=== PATIENT | male | born 1960 | race Caucasian/White ===

== ENCOUNTER 2018-05-12 09:19 | Outpatient (REF) | payer MEDICAID, SELFPAY ==
[2018-05-12 13:09] LABS: Anion Gap 9.5 mmol/L (3-11); BUN 11 mg/dL (7-18); CO2 26.5 mmol/L (21.0-32.0); CREATININE 0.98 mg/dL (0.70-1.30); Calcium 8.6 mg/dL (8.5-10.1); Chloride 102 mmol/L (98-107); Ferritin 295 ng/mL (8-388); Glucose 106 mg/dL (70-100); Potassium 3.5 mmol/L (3.5-5.1); Sodium 138 mmol/L (136-145); TSH (W/Ref FT4) 1.38 uIU/mL (0.358-3.74)
[2018-05-12 15:00] LABS: Hemoglobin A1C 5.5 % (4.5-6.2)
== END 2018-05-12 09:39 ==
LOC: NCHCN 09:19
PROVIDERS: PCP Family Medicine; Visit Provider Family Medicine
DX: I10 Essential (primary) hypertension (principal); E78.5 Hyperlipidemia, unspecified; E03.9 Hypothyroidism, unspecified; R73.01 Impaired fasting glucose; G25.81 Restless legs syndrome; E66.01 Morbid (severe) obesity due to excess calories
CPT/HCPCS: 80048; 82728; 83036; 84443

== ENCOUNTER 2019-02-03 10:01 | Outpatient (CLI) | payer MEDICAID, SELFPAY ==
[2019-02-03 11:10] LABS: Hemoglobin A1C 5.7 % (4.5-6.2)
[2019-02-03 12:04] LABS: Anion Gap 11.3 mmol/L (3-11); BUN 13 mg/dL (7-18); CO2 26.7 mmol/L (21.0-32.0); CREATININE 0.94 mg/dL (0.70-1.30); Calcium 8.8 mg/dL (8.5-10.1); Calculated LDL 91; Chloride 102 mmol/L (98-107); Cholesterol 146 mg/dL (50-200); Glucose 97 mg/dL (70-100); HDL Cholesterol 42 mg/dL (40-60); Potassium 3.8 mmol/L (3.5-5.1); Sodium 140 mmol/L (136-145); TSH (W/Ref FT4) 1.33 uIU/mL (0.358-3.74); Triglyceride 67 mg/dL (30-150)
== END 2019-02-03 10:21 ==
PROVIDERS: PCP Family Medicine; Visit Provider Family Medicine
DX: I10 Essential (primary) hypertension (principal); E03.9 Hypothyroidism, unspecified; R73.01 Impaired fasting glucose; E78.5 Hyperlipidemia, unspecified
CPT/HCPCS: 36415; 80048; 80061; 83721; 83036; 84443

== ENCOUNTER 2019-06-26 15:09 | Outpatient (CLI) | payer MEDICAID, SELFPAY ==
--- NOTE | 2019-06-26 14:59 | DI.RAD_ITS ---
EXAM: XR KNEE RT 3V AP,LAT,ELVIS INDICATION: knee pain. COMPARISON: RIGHT KNEE LIMITED 1 OR 2 VIEW from 11/25/2017 TECHNIQUE: 2D digital imaging was performed. FINDINGS: There is mild narrowing of the medial femoral tibial joint space. Periarticular spurring is seen in the lateral femoral tibial joint and the posterior patella. Bones are intact and normally mineralize d. The soft tissues are unremarkable. IMPRESSION: Mild osteoarthritis of the right knee.
--- NOTE | 2019-06-26 14:59 | DI.RAD_ITS ---
EXAM: XR KNEE LT 3V AP,LAT,ELVIS INDICATION: knee pain. COMPARISON: XR KNEE RT 3V AP,LAT,ELVIS from 06/26/2019 TECHNIQUE: 2D digital imaging was performed. FINDINGS: No bone or joint abnormality is identified. The soft tissues are unremarkable. IMPRESSION: Negative examination.
== END 2019-06-26 15:29 ==
PROVIDERS: PCP Family Medicine; Visit Provider Physician Assistant
DX: M25.562 Pain in left knee (principal); M25.561 Pain in right knee; M17.11 Unilateral primary osteoarthritis, right knee
CPT/HCPCS: 73562

== ENCOUNTER 2019-07-21 08:46 | Outpatient (CLI) | payer MEDICAID, SELFPAY ==
[2019-07-21 11:04] LABS: HCT 42.5 % (40.0-50.0); HGB 13.8 g/dL (13.5-17.5); Mean Corp. HGB Concentration 32.5 g/dL (32.0-36.0); Mean Corpuscular Hemoglobin 29.1 pg (27.0-33.0); Mean Corpuscular Volume 89.5 fL (80-95); Mean Platelet Volume 10.1 fL (8.0-11.0); Platelet Count 305 x1000/uL (130-400); RBC 4.75 m/cumm (4.50-6.00); RBC Distribution Width 14.2 % (11.8-14.1); White Blood Cell Count 7.43 k/cumm (4.4-10.8)
[2019-07-21 11:54] LABS: ALT 16 U/L (16-63); AST 15 U/L (15-37); Albumin 3.2 g/dL (3.4-5.0); Alkaline Phosphatase 119 U/L (46-116); Anion Gap 8.1 mmol/L (3-11); BUN 15 mg/dL (7-18); Bilirubin, Total 0.3 mg/dL (0.2-1.0); CO2 27.9 mmol/L (21.0-32.0); CREATININE 0.92 mg/dL (0.70-1.30); Calcium 8.6 mg/dL (8.5-10.1); Chloride 105 mmol/L (98-107); Glucose 88 mg/dL (74-106); Potassium 4.3 mmol/L (3.5-5.1); Sodium 141 mmol/L (136-145); Total Protein 6.5 g/dL (6.4-8.2)
== END 2019-07-21 09:06 ==
PROVIDERS: PCP Family Medicine; Visit Provider Family Medicine
DX: I10 Essential (primary) hypertension (principal); E78.5 Hyperlipidemia, unspecified; E03.9 Hypothyroidism, unspecified; R73.03 Prediabetes
CPT/HCPCS: 36415; 80053; 85027

== ENCOUNTER 2019-09-04 00:30 | Outpatient (CLI) | payer MEDICAID, SELFPAY ==
--- NOTE | 2019-09-04 14:07 | DI.MRI_ITS ---
EXAM: MR LOWER JOINT LT WO CLINICAL HISTORY: L KNEE PAIN, M25.562. TECHNIQUE: Multiplanar multisequence MRI was performed. MR examination of the knee was performed ac cording to the usual protocol. COMPARISON: MRI R LOWER JOINT WO CONT from 03/19/2016 FINDINGS: No significant bony signal abnormality seen. Extensor mechanism appears intact except for slight car tilage signal abnormality and cartilage thinning of the patella. Articular cartilage of medial and lateral tibiofemoral joints appears thinned. There is an apparent nondisplaced tear of body and posterior horn of the medial meniscus. No lateral meniscus tear seen. No cruciate ligament tear seen. No significant collateral ligament injury or posterolateral corner injury. IMPRESSION: Nondisplaced medial meniscal tear. Articular cartilage thinning of all 3 joints of the knee consiste nt with degenerative change.
== END 2019-09-04 00:50 ==
PROVIDERS: PCP Family Medicine; Visit Provider Student in an Organized Health Care Education/Training Program
DX: M25.562 Pain in left knee (principal); S83.242A Other tear of medial meniscus, current injury, left knee, initial encounter; M17.12 Unilateral primary osteoarthritis, left knee
CPT/HCPCS: 73721

== ENCOUNTER 2019-09-20 09:54 | Outpatient (CLI) | payer MEDICAID, SELFPAY | END 2019-09-20 10:14 | PROVIDERS: PCP Family Medicine; Visit Provider Student in an Organized Health Care Education/Training Program | DX: Z01.818 Encounter for other preprocedural examination (principal) ==

== ENCOUNTER 2019-09-26 09:45 | Day surgery (SDC) | payer MEDICAID, SELFPAY ==
[2019-09-20 10:12] VITALS: BP 128/79; PULSE 79; RESP 18; TEMP 36.9
--- NOTE | 2019-09-26 07:34 | W.PM.DSUDISC ---
Documented by User: Shaniqua Schulte 09/26/19 07:37 Discharge Plan Disposition Patient Disposition: HOME Condition: Good Discharge Details Reason For Visit: left knee medial meniscus tear Attending Provider: Law Metzger Primary Care Provider: Erlinda Serrano Home Meds and New Rx's Prescriptions: New hydrocodone-acetaminophen 5-325 mg tablet 1 tab PO Q6H PRN (Reason: severe pain) Qty: 6 RF: 0 acetaminophen 500 mg tablet 500 mg PO Q6H PRN (Reason: pain) Qty: 60 RF: 2 ibuprofen 600 mg tablet 600 mg PO TID PRN (Reason: pain) Qty: 60 RF: 2 Continued ibuprofen 600 MG tablet 400 - 600 mg PO DAILY PRN PRNRF: 0 diazepam [Valium] 10 MG tablet 10 mg PO 1 hour prior to mri Qty: 1 RF: 0 tramadol 50 MG tablet 50 mg PO TID PRNQty: 20 RF: 0 bupropion HCl 150 MG tablet extended release 12 hr 150 mg PO BID RF: 0 risperidone 2 MG tablet 2 mg PO DAILY RF: 0 loratadine 10 MG tablet 10 mg PO DAILY RF: 0 ropinirole 0.5 MG tablet 0.5 mg PO HS RF: 0 lisinopril 10 MG tablet 10 mg PO DAILY RF: 0 hydrochlorothiazide 25 MG tablet 25 mg PO DAILY RF: 0 aspirin [Aspir-81] 81 MG tablet,delayed release (DR/EC) 81 mg PO DAILY RF: 0 zolpidem 10 MG tablet 10 mg PO HS PRNRF: 0 cholecalciferol (vitamin D3) [Vitamin D3] 400 UNIT tablet 400 unit PO DAILY RF: 0 famotidine 20 MG tablet 20 mg PO DAILY RF: 0 levothyroxine [Synthroid] 100 mcg Tablet 100 mcg PO DAILY RF: 0 sertraline 25 mg Tablet 25 mg PO DAILY RF: 0 No Action acetaminophen [Tylenol Extra Strength] 500 mg Tablet 1,000 mg PO Q6H PRNRF: 0 Discharge Instructions Stand Alone Forms: [facility] Arthroscopy Referrals: Law Metzger MD [ [facility] STAFF PHYSICIAN] - Equipment/Supplies: Partial Weight Bearing Crutches Activity:: Elevate Remove Dressings/Wound Care:: 72 hours Shower/Bathe:: 72 hours Diet:: As Tolerated Discharge Orders Discharge Orders: Discharge Order (Routine); Ordered 09/26/19 Ordered By: Shaniqua Schulte DS: Diagnosis Discharge Diagnosis (1) Tear of medial meniscus of left knee: Status: Acute Documented by User: Law Metzger MD 09/26/19 10:26 Discharge Plan Disposition Patient Disposition: HOME Condition: Good Discharge Details Reason For Visit: left knee medial meniscus tear Attending Provider: Law Metzger Primary Care Provider: Erlinda Serrano Home Meds and New Rx's Prescriptions: New hydrocodone-acetaminophen 5-325 mg tablet 1 tab PO Q6H PRN (Reason: severe pain) Qty: 6 RF: 0 acetaminophen 500 mg tablet 500 mg PO Q6H PRN (Reason: pain) Qty: 60 RF: 2 ibuprofen 600 mg tablet 600 mg PO TID PRN (Reason: pain) Qty: 60 RF: 2 Continued ibuprofen 600 MG tablet 400 - 600 mg PO DAILY PRN PRNRF: 0 diazepam [Valium] 10 MG tablet 10 mg PO 1 hour prior to mri Qty: 1 RF: 0 tramadol 50 MG tablet 50 mg PO TID PRNQty: 20 RF: 0 bupropion HCl 150 MG tablet extended release 12 hr 150 mg PO BID RF: 0 risperidone 2 MG tablet 2 mg PO DAILY RF: 0 loratadine 10 MG tablet 10 mg PO DAILY RF: 0 ropinirole 0.5 MG tablet 0.5 mg PO HS RF: 0 lisinopril 10 MG tablet 10 mg PO DAILY RF: 0 hydrochlorothiazide 25 MG tablet 25 mg PO DAILY RF: 0 aspirin [Aspir-81] 81 MG tablet,delayed release (DR/EC) 81 mg PO DAILY RF: 0 zolpidem 10 MG tablet 10 mg PO HS PRNRF: 0 cholecalciferol (vitamin D3) [Vitamin D3] 400 UNIT tablet 400 unit PO DAILY RF: 0 famotidine 20 MG tablet 20 mg PO DAILY RF: 0 levothyroxine [Synthroid] 100 mcg Tablet 100 mcg PO DAILY RF: 0 sertraline 25 mg Tablet 25 mg PO DAILY RF: 0 No Action acetaminophen [Tylenol Extra Strength] 500 mg Tablet 1,000 mg PO Q6H PRNRF: 0 Discharge Instructions Stand Alone Forms: [facility]th[facility] Referrals: Law Metzger MD [ [facility] STAFF PHYSICIAN] - Equipment/Supplies: Partial Weight Bearing Crutches Activity:: Elevate Remove Dressings/Wound Care:: 72 hours Shower/Bathe:: 72 hours Diet:: As Tolerated Discharge Orders Discharge Orders: Discharge Order (Routine); Ordered 09/26/19 Ordered By: Shaniqua Schulte
[2019-09-26 09:48] VITALS: BP 146/79; PULSE 82; RESP 20; TEMP 36.5; O2SAT 93
[2019-09-26] MEDS: Lactated Ringers 1,000 ML 80 ML IV (10:05)
[2019-09-26] MEDS: ceFAZolin 3,000 MG in Normal Saline 100 ML 200 MG IVPB (10:35)
[2019-09-26] MEDS: Bupivacaine 0.5% Pres-Free 30 ML VIAL (10:54)
[2019-09-26 11:31] VITALS: BP 132/74; PULSE 65; RESP 15; TEMP 36.6; O2SAT 97
[2019-09-26 11:36] VITALS: BP 137/74; PULSE 64; RESP 24; TEMP 36.6; O2SAT 97
--- NOTE | 2019-09-26 11:39 | ROE_ITS ---
Date of service: 09/26/19 Time of Service: 11:39 Operative Note Operative Note DATE OF PROCEDURE: 09/26/19 PRE-OP DIAGNOSIS: Left medial meniscal tear POST-OP DIAGNOSIS: other (Left medial meniscal tear, left medial plica) PROCEDURE: Left knee arthroscopic partial medial meniscectomy with medial plica excision SURGEON: Law Metzger ANESTHESIA: GETA ESTIMATED BLOOD LOSS: 0 PATHOLOGY: none sent COMPLICATIONS: None Patient was transported to: PACU Patient's condition: stable Indications: I have seen Milind in clinic for symptoms of a meniscus tear. This was confirmed based on MRI and exam findings. Nonoperative measures were exhausted but disability and pain persisted. I discussed knee arthroscopy with meniscal intervention with the patient. I reviewed the risks of the procedure to include, but not limited to, bleeding, infection, pain, stiffness, damage to nerves or vessels, recurrence, blood clot. Despite these risks, the patient elected to proceed. 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 The consent was reviewed with the patient and signed. The history and physical was updated. All questions were answered. Milind was taken back to the operating room. The patient was placed into the supine position on the operating room table. A nonsterile tourniquet was placed high onto the leg but not used. All bony prominences were well padded. Prophylactic antibiotics in the form of cefazolin were administered. The left leg was then prepped with Chloraprep and draped in a standard fashion with stockinette and extremity drape. A timeout to confirm correct identity, side and site, procedure, allergies, anesthesia, and medical concerns was performed. The leg was placed into a pneumatic leg hall, [id number]. A standard lateral portal was made at the lateral border of the patella tendon in line with the inferior pole of the patella, soft spot. The skin and deep tissue was incised sharply and the blunt trochar was inserted atraumatically. A diagnostic arthro scopy was performed and the findings are listed above. The suprapatellar pouch had no significant inflammatory change. The patellofemoral articulation showed some grade II chondromalacia at the inferior portion of the patella as well as good tracking. The lateral gutter had no loose bodies and the medial gutter had no loose bodies. The knee was brought into some valgus stress in extension to o pen the medial compartment. A medial portal was made, localized by a spinal needle. The portal was created with an #11 blade through skin and capsule under direct visualization avoiding any meniscal injury. A probe was then inserted into the medial compartment. The medial compartment was fully inspected. The chondral surface of the tibia showed grade I chondromalacia and the surface of the femur showed grade I chondromalacia. The medial meniscus had a complex tear involving the root with both radial and horizontal components. After evaluation, the meniscus was debrided down to a stable base using a series of biters and arthroscopic leonardo. It was probed afterwards to confirm that the tear had been removed and the meniscus was stable. The notch was then inspected which showed an intact ACL and an intact PCL. The leg was then brought into a figure of 4 position. The lateral compartment was fully inspected with the arthroscope and a probe. The chondral surface of the lateral femur showed no significant chondromalacia. The chondral surface of the lateral tibia showed no significant chondromalacia. The lateral meniscus had no meniscal tear. A medial plica was seen impinging over the medial aspect of the femur and this was resected with a shaver. The arthroscope was brought back into the suprapatellar pouch and the leg was in full extension. The knee was thoroughly irrigated with the arthroscopic fluid on high flow and pressure. Inflow was stopped and excess fluid was removed. The wounds were closed with 4-0 Nylon. They were dressed with Xeroform, 4x4 gauze, ABD pad, Kerlix and an SHAYNA wrap. A cryo-cuff was applied. The patient tolerated the procedure well and was returned to the [facility] area in a stable condition suffering no known complication.
[2019-09-26 11:41] VITALS: BP 132/74; PULSE 64; RESP 16; TEMP 36.6; O2SAT 96
[2019-09-26 11:55] VITALS: BP 147/73; PULSE 61; RESP 18; TEMP 36.6; O2SAT 98
[2019-09-26] MEDS: fentaNYL 100 MCG/2 ML VIAL IVP ×2 (11:55→12:05)
[2019-09-26 12:47] VITALS: BP 141/72; PULSE 60; RESP 16; TEMP 36.4; O2SAT 98
== END 2019-09-26 13:40 | disposition home or self-care (01) ==
PROVIDERS: PCP Family Medicine; Visit Provider Student in an Organized Health Care Education/Training Program
PROC: (CPT 29870; principal; 2019-09-26 11:00)
DX: S83.232A Complex tear of medial meniscus, current injury, left knee, initial encounter (principal); X58.XXXA Exposure to other specified factors, initial encounter; M67.52 Plica syndrome, left knee; M94.262 Chondromalacia, left knee; M22.42 Chondromalacia patellae, left knee; I10 Essential (primary) hypertension; R73.03 Prediabetes; G47.33 Obstructive sleep apnea (adult) (pediatric); K21.9 Gastro-esophageal reflux disease without esophagitis
CPT/HCPCS: 29881; E0114; J0690; J1885; J2001; J2405; J3010

== ENCOUNTER 2019-10-19 18:47 | Outpatient (REF) | payer MEDICAID, SELFPAY ==
[2019-10-19 18:48] LABS: Anion Gap 10.1 mmol/L (3-11); BUN 17 mg/dL (7-18); CO2 26.9 mmol/L (21.0-32.0); CREATININE 0.95 mg/dL (0.70-1.30); Calcium 9.1 mg/dL (8.5-10.1); Chloride 105 mmol/L (98-107); Glucose 92 mg/dL (74-106); Potassium 4.4 mmol/L (3.5-5.1); Sodium 142 mmol/L (136-145)
== END 2019-10-19 19:07 ==
LOC: NCHCN 18:47
PROVIDERS: PCP Family Medicine; Visit Provider Family Medicine
DX: I10 Essential (primary) hypertension (principal)
CPT/HCPCS: 80048

== ENCOUNTER 2019-11-07 02:01 | Outpatient (CLI) | payer MEDICAID, SELFPAY ==
--- NOTE | 2019-11-07 13:30 | DI.US_ITS ---
APPROVED REPORT EXAM: Comprehensive 2D, Doppler, and color-flow Echocardiogram Patient Location: Out-Patient Infrastructure Project Manager: Keyona Rosario RDCS (AE) Indications: Aortic Regurgitation, Edema Conclusion Left Ventricle : The left ventricle is normal size. The left ventricular systolic function is normal. The left ventricular ejection fraction is within the normal range. There is normal left ventricular wall thickness. There is normal LV segmental wall motion. Diastolic function appears normal. LVEF is 55%. Right Ventricle : The right ventricle is normal size. The right ventricular systolic function is norm al. Atria : The left atrium size is normal. The right atrium size is normal. Aortic Valve : The aortic valve is not well visualized. Mild to moderate aortic regurgitation. There is no aortic valvular stenosis. Mitral Valve : The mitral valve is normal in structure. Trace mitral regurgitation. No evidence of mi tral valve stenosis. Great Vessels : IVC is normal in size and collapses >50% with inspiration. There is none of tricuspi d regurgitation to estimate RVSP. Compared to echocardiogram dated 11/18/2017: There is no significant change. Wall motion Left Ventricle The left ventricle is normal size. The left ventricular systolic function is normal. The left ventric ular ejection fraction is within the normal range. There is normal left ventricular wall thickness. T here is normal LV segmental wall motion. Diastolic function appears normal. There is no ventricular s eptal defect visualized. LVEF is 55%. Right Ventricle The right ventricle is normal size. The right ventricular systolic function is normal. Atria The left atrium size is normal. The right atrium size is normal. The interatrial septum is intact wit h no evidence for an atrial septal defect. Aortic Valve The aortic valve is not well visualized. There is no aortic valvular stenosis. Mild to moderate aorti c regurgitation. Mitral Valve The mitral valve is normal in structure. No evidence of mitral valve stenosis. Trace mitral regurgita tion. Tricuspid Valve The tricuspid valve is normal in structure. There is no tricuspid valve stenosis. Trace tricuspid reg urgitation. Pulmonic Valve The pulmonary valve is normal in structure. There is no pulmonic valvular stenosis. There is no pulmo rory valvular regurgitation. Great Vessels The aortic root is normal in size. The ascending aorta is mildly dilated. Aortic arch is not well vis ualized. IVC is normal in size and collapses >50% with inspiration. There is none of tricuspid regurg itation to estimate RVSP. Pericardium There is no pericardial effusion. 2D Dimensions IVSD d PLAX 0.98 cm M: 0.6-1.2 LV Vol A2C d MOD 110.4 mL LVPW d PLAX 0.98 cm M: 0.6 - 1.2 LV Vol A4C d MOD 138.1 mL LVID d PLAX 5.00 cm M: 4.2 - 5.8 LA vol/ BSA A2C s A-L 24.9 mL/m2 LVDs 3.80 cm M: 2.5 - 4.0 LA vol/ BSA A4C s A-L 26.8 mL/m2 Ao Root d 3.11 cm M: 3.1 - 3.7 LA Vol/ BSA Biplane s A-L 28.0 mL/m2 RA Area A4C 13.68 cm2 LA Area A4C s MOD 22.00 cm2 RA Vol/ BSA A4C s A-L 15.1 mL/m2 LA Area A2C s MOD 19.57 cm2 Ao Asc Diam d 3.88 cm M: 2.6 - 3.4 LV EF A4C MOD 56.8 % LV EF Teichholz 46.8 % LV EF A2C MOD 55.6 % LVEF (Urena's) 55.47 % M: 52 - 72 LV EF Biplane MOD 55.5 % LV Volume 87.18 mL M: 62 - 150 LV Volume Index 35.87 mL/m2 M: 34 - 74 LV Vol Biplane MOD 123.5 mL FS 23.50 % LV Diastology E Decel Time 303.00 (160-240 msec) E/A Ratio 0.8 MV E Vmax 0.58 (0.4-1.3 m/s) MV A Vmax 0.70 (0.4-1.3 m/s) MV E/A Ratio 0.80 Aortic Valve LVOT Area 2.79 cm2 AoV Area Vmax 2.21 cm2 LVOT Vmax 1.13 m/s AoV Area/ BSA (Vmax) 0.91 cm2/m2 LVOT Mean James. 0.69 m/s CARRIE Mean James. 1.90 cm2 LVOT Peak Grad 5.1 mmHg CARRIE Mean James. Index 0.78 cm2/m2 LVOT Mean Grad 2.3 mmHg AR DT 2854 msec LVOT VTI 0.194 m AR PHT 828 msec LVOT Diam s 1.85 cm (M/F) 1.5-2.5 AoV Vmax 1.43 (0.5-1.3 m/s) Velocity Ratio 0.79 AoV Mean James. 1.01 m/s AoV Peak Grad 8.2 mmHg LVOT SV 54.06 mL AoV Mean Grad 4.6 (<5 mmHg) AoV VTI 0.264 (0.18-0.25 m) AoV Area VTI 2.05 (2.5-4.5 cm2) AoV Area/ BSA (VTI) 0.84 cm/m2 Mitral Valve MV DT 303 (160-240 msec) MV PHT 88 msec MV Area PHT 2.51 cm2 MV VTI 0.288 m MV Area VTI 1.87 (4.0-6.0 cm2) Pulmonary Valve PV Vmax 1.03 (0.5-1.5 m/s) RVOT Peak Gr. 3.14 mmHg PV Peak Grad 4.3 mmHg RVOT Mean Gr. 1.75 mmHg PV Mean Grad 2.4 mmHg RVOT VTI 0.143 m PV VTI 0.170 m RVOT Vmax 0.89 m/s
== END 2019-11-07 02:21 ==
PROVIDERS: PCP Family Medicine; Visit Provider Family Medicine
DX: R60.0 Localized edema (principal); I35.1 Nonrheumatic aortic (valve) insufficiency; I10 Essential (primary) hypertension
CPT/HCPCS: 93306

== ENCOUNTER 2019-11-13 10:30 | Outpatient (REF) | payer MEDICAID, SELFPAY ==
[2019-11-13 19:50] LABS: Anion Gap 10.1 mmol/L (3-11); BUN 18 mg/dL (7-18); CO2 26.9 mmol/L (21.0-32.0); CREATININE 1.11 mg/dL (0.70-1.30); Calcium 8.9 mg/dL (8.5-10.1); Chloride 103 mmol/L (98-107); Glucose 96 mg/dL (74-106); Potassium 4.3 mmol/L (3.5-5.1); Sodium 140 mmol/L (136-145); TSH (W/Ref FT4) 2.17 uIU/mL (0.36-3.74)
== END 2019-11-13 10:50 ==
LOC: NCHCN 10:30
PROVIDERS: PCP Family Medicine; Visit Provider Family Medicine
DX: I10 Essential (primary) hypertension (principal); E03.9 Hypothyroidism, unspecified
CPT/HCPCS: 80048; 84443

== ENCOUNTER 2019-12-25 02:10 | Outpatient (CLI) | payer MEDICAID, SELFPAY ==
[2019-12-25 15:00] LABS: Hemoglobin A1C 5.7 % (3.8-5.6)
[2019-12-25 15:58] LABS: TSH (W/Ref FT4) 1.34 uIU/mL (0.36-3.74)
== END 2019-12-25 02:30 ==
PROVIDERS: PCP Family Medicine; Visit Provider Family Medicine
DX: E03.9 Hypothyroidism, unspecified (principal); R73.03 Prediabetes; I10 Essential (primary) hypertension
CPT/HCPCS: 36415; 82306; 83036; 84443

== ENCOUNTER 2020-03-11 10:33 | Emergency (ER) | payer OTHER, MEDICAID, SELFPAY ==
--- NOTE | 2020-03-11 10:42 | NUR.NOTE ---
Nursing Note: attempted to triage pt- sitting in w/c on cell phone and asked me to wait- continued on his conversation, no obvious distress, talking in complete sentences, next pt called
[2020-03-11 10:51] VITALS: BP 158/74; PULSE 95; RESP 20; TEMP 36.8; O2SAT 95
--- NOTE | 2020-03-11 11:30 | DI.US_ITS ---
EXAM: US LOWER EXTREMITY VENOUS LT CLINICAL HISTORY: swelling and pain and redness. TECHNIQUE: Lower extremity venous ultrasound performed using grayscale, color-flow, and spectral Do ppler analysis. COMPARISON: No exams were available for comparison FINDINGS: The common femoral, femoral and popliteal veins demonstrate normal compressibility, augmentation, and color Doppler. The posterior tibial veins are patent. No saphenous vein thrombosis or other superfi cial venous thrombosis is seen. There is a Villegas's cyst measuring 5.5 cm. IMPRESSION: Villegas's cyst. No evidence of DVT. DATA REPOSITORY:
--- NOTE | 2020-03-11 11:41 | W.ED.GENAD ---
Discharge Plan Disposition Patient Disposition: HOME Condition: Good Discharge Details Chief Complaint: Cellulitis Clinical Impression: Phlebitis, Villegas cyst Primary Care Provider: Erlinda Serrano ED Provider: Janey Maher [place] Meds and New Rx's Prescriptions: Continued ibuprofen 600 MG tablet 400 - 600 mg PO DAILY PRN PRNRF: 0 diazepam [Valium] 10 MG tablet 10 mg PO 1 hour prior to mri Qty: 1 RF: 0 tramadol 50 MG tablet 50 mg PO TID PRNQty: 20 RF: 0 bupropion HCl 150 MG tablet extended release 12 hr 150 mg PO BID RF: 0 risperidone 2 MG tablet 2 mg PO DAILY RF: 0 loratadine 10 MG tablet 10 mg PO DAILY RF: 0 ropinirole 0.5 MG tablet 0.5 mg PO HS RF: 0 lisinopril 10 MG tablet 10 mg PO DAILY RF: 0 hydrochlorothiazide 25 MG tablet 25 mg PO DAILY RF: 0 aspirin [Aspir-81] 81 MG tablet,delayed release (DR/EC) 81 mg PO DAILY RF: 0 zolpidem 10 MG tablet 10 mg PO HS PRNRF: 0 cholecalciferol (vitamin D3) [Vitamin D3] 400 UNIT tablet 400 unit PO DAILY RF: 0 famotidine 20 MG tablet 20 mg PO DAILY RF: 0 levothyroxine [Synthroid] 100 mcg Tablet 100 mcg PO DAILY RF: 0 sertraline 25 mg Tablet 25 mg PO DAILY RF: 0 hydrocodone-acetaminophen 5-325 mg tablet 1 tab PO Q6H PRN (Reason: severe pain) Qty: 6 RF: 0 acetaminophen 500 mg tablet 500 mg PO Q6H PRN (Reason: pain) Qty: 60 RF: 2 ibuprofen 600 mg tablet 600 mg PO TID PRN (Reason: pain) Qty: 60 RF: 2 acetaminophen [Tylenol Extra Strength] 500 mg Tablet 1,000 mg PO Q6H PRNRF: 0 Discharge Instructions Instructions: Bakers Cyst (ED), Phlebitis (ED) Additional Instructions: Please use ibuprofen 600 mg 4 times daily with food for 5 days then as needed for pain You can use warm compresses to the affected area 3-4 times daily 20 minutes at a time Return sooner for new or worsening symptoms You will need a follow-up appointment with your primary care provider she may wish to repeat the ultrasound in 2 weeks Referrals: Erlinda Serrano MD [Primary Care Provider] - Medical Decision Making Patient presents with complaints of left lower extremity swelling and pain. His concern is of a DVT. Differentials include cellulitis DVT. There is been no trauma, he has had no fevers. There is no obvious cellulitis or abscess. An ultrasound is obtained but does show a Villegas's cyst and phlebitis. He will be discharged home on ibuprofen and recommended follow-up with primary care provider for a repeat ultrasound Medical Records Medical records reviewed: Yes I reviewed the patient's medical records. HPI General Mode of arrival: ambulatory. Date/Time Provider Initiated Documentation: 03/11/20 11:38. Limitations to Documentation: no limitations. Information obtained by: patient. HPI Narrative: This is a 59-year-old male patient with a past medical history significant for obesity hypertension and osteoarthritis who presents to the emergency department with left lower extremity pain redness. He denies any recent injury or trauma. Related Data Home Medications Medication Instructions Recorded Confirmed aspirin [Aspir-81] 81 mg PO DAILY 10/16/12 11/06/19 bupropion HCl 150 mg PO BID 10/16/12 11/06/19 hydrochlorothiazide 25 mg PO DAILY 10/16/12 11/06/19 lisinopril 10 mg PO DAILY 10/16/12 11/06/19 loratadine 10 mg PO DAILY 10/16/12 11/06/19 risperidone 2 mg PO DAILY 10/16/12 11/06/19 ropinirole 0.5 mg PO HS 10/16/12 11/06/19 zolpidem 10 mg PO HS PRN 10/16/12 11/06/19 cholecalciferol (vitamin D3) 400 unit PO DAILY 06/30/13 11/06/19 [Vitamin D3] famotidine 20 mg PO DAILY 10/10/16 11/06/19 ibuprofen 400 - 600 mg PO DAILY PRN PRN 12/03/16 11/06/19 diazepam [Valium] 10 mg PO 1 hour prior to mri #1 12/07/16 11/06/19 tramadol 50 mg PO TID PRN #20 tab-cap 03/03/17 11/06/19 levothyroxine [Synthroid] 100 mcg PO DAILY 09/20/19 11/06/19 sertraline 25 mg PO DAILY 09/20/19 11/06/19 acetaminophen 500 mg PO Q6H PRN #60 tab 09/26/19 11/06/19 acetaminophen [Tylenol Extra 1,000 mg PO Q6H PRN 09/26/19 11/06/19 Strength] hydrocodone-acetaminophen 1 tab PO Q6H PRN #6 tab 09/26/19 11/06/19 ibuprofen 600 mg PO TID PRN #60 tab 09/26/19 11/06/19 Previous Rx's Medication Instructions Recorded acetaminophen 500 mg PO Q6H PRN #60 tab 09/26/19 hydrocodone-acetaminophen 1 tab PO Q6H PRN #6 tab 09/26/19 ibuprofen 600 mg PO TID PRN #60 tab 09/26/19 Allergies Allergy/AdvReac Type Severity Reaction Status Date / Time Penicillins Allergy Severe Skin Rash, Unverified 03/11/20 10:56 TONGUE SWELLING Sulfa (Sulfonamide Allergy Intermediate Skin Rash Unverified 03/11/20 10:56 Antibiotics) General Stated Complaint: Cellulitis ZANE: 3 Review of Systems Constitutional Constitutional: Denies fever(s) Musculoskeletal Musculoskeletal: Reports arthralgias and Reports other (Swelling to left lower extremity) Integumentary/Breasts Skin/Breast: Denies rash Hematologic/Lymphatic Hematologic/Lymphatic: Denies easy bleeding and Denies easy bruising PFSH Social History Smoking/Tobacco Use Status: Former Tobacco Use Quit Date: 08/16/82 Alcohol Intake: former Drug use: Never Substance use type: does not use Current gender identity: male Do you feel safe at home: Yes Additional Social history: lives alone Exam Const Nutritional Appearance: obese Orientation: alert, awake and oriented x3 Skin Lesions: no lesions Rashes: no rashes Extrem General: edema Laterality: left (Lower) Course Vital Signs Vital signs: Vital Signs Temperature 36.8 C 03/11/20 10:51 Pulse 95 H 03/11/20 10:51 Respiratory Rate 03/11/20 10:51 Blood Pressure 158/74 H 03/11/20 10:51 Pulse Oximetry 95 03/11/20 10:51 Temperature 36.8 C 03/11/20 10:51 Temperature Source Skin 03/11/20 10:51 Pulse 95 H 03/11/20 10:51 Respiratory Rate 03/11/20 10:51 Respiratory Effort Non-Labored 03/11/20 11:14 Blood Pressure 158/74 H 03/11/20 10:51 Blood Pressure Position Sitting 03/11/20 10:51 Pulse Oximetry 95 03/11/20 10:51 Oxygen Delivery Method Room Air 03/11/20 10:51 Oxygen Flow Rate 0 03/11/20 10:51 Pain Level 5 03/11/20 10:51
== END 2020-03-11 14:29 | disposition home or self-care (01) ==
PROVIDERS: Emergency Provider Nurse Practitioner Acute Care; PCP Family Medicine
DX: I80.02 Phlebitis and thrombophlebitis of superficial vessels of left lower extremity (principal); M71.22 Synovial cyst of popliteal space [Baker], left knee; I10 Essential (primary) hypertension
CPT/HCPCS: 99284; 93971; 99283

== ENCOUNTER → 2020-04-15 10:45 | Outpatient (BNVA) | payer OTHER, MEDICAID, SELFPAY | PROVIDERS: PCP Family Medicine; Referring Provider Family Medicine; Visit Provider Student in an Organized Health Care Education/Training Program | DX: M17.12 Unilateral primary osteoarthritis, left knee (principal) | CPT/HCPCS: 20610; 99213; J7325 ==

== ENCOUNTER → 2020-06-03 10:32 | Outpatient (BNVA) | payer OTHER, MEDICAID, SELFPAY | PROVIDERS: PCP Family Medicine; Referring Provider Family Medicine; Visit Provider Student in an Organized Health Care Education/Training Program | DX: M17.12 Unilateral primary osteoarthritis, left knee (principal); Z98.890 Other specified postprocedural states | CPT/HCPCS: 99212 ==

== ENCOUNTER 2020-09-19 15:20 | Outpatient (REF) | payer OTHER, MEDICAID, SELFPAY ==
[2020-09-19 14:11] LABS: Hemoglobin A1C 5.5 % (<5.7)
[2020-09-19 14:56] LABS: ALT 27 U/L (16-63); AST 13 U/L (15-37); Albumin 3.5 g/dL (3.4-5.0); Alkaline Phosphatase 144 U/L (46-116); Anion Gap 9.5 mmol/L (3-11); BUN 17 mg/dL (7-18); Bilirubin, Total 0.3 mg/dL (0.2-1.0); CO2 28.5 mmol/L (21.0-32.0); CREATININE 0.9 mg/dL (0.70-1.30); Calcium 9.3 mg/dL (8.5-10.1); Calculated LDL 65 mg/dL (<100); Chloride 103 mmol/L (98-107); Cholesterol 128 mg/dL (<200); Glucose 89 mg/dL (74-106); HDL Cholesterol 50 mg/dL (40-60); Potassium 4.6 mmol/L (3.5-5.1); Sodium 141 mmol/L (136-145); TSH (W/Ref FT4) 1.66 uIU/mL (0.36-3.74); Triglyceride 67 mg/dL (<150)
== END 2020-09-19 15:21 | disposition home or self-care (01) ==
LOC: NCHCN 15:20
PROVIDERS: PCP Family Medicine; Visit Provider Family Medicine
DX: E03.9 Hypothyroidism, unspecified (principal); I10 Essential (primary) hypertension; R73.03 Prediabetes; E78.5 Hyperlipidemia, unspecified
CPT/HCPCS: 80053; 80061; 83036; 84443

== ENCOUNTER 2020-10-22 01:34 | Outpatient (CLI) | payer OTHER, MEDICAID, SELFPAY ==
--- NOTE | 2020-10-22 | DI.US_ITS ---
EXAM: US ABDOMEN CLINICAL HISTORY: ELEVATED ALK PHOS,R74.8,OBESITY,PROMINENT ABD VEINS,? FATTY LIVER TECHNIQUE: Ultrasound abdomen performed using standard protocol. COMPARISON: No exams were available for comparison FINDINGS: Examination limited by patient body habitus and overlying bowel gas. ABDOMINAL AORTA AND IVC: The abdominal aorta was obscured by overlying bowel. The visualized IVC is unremarkable. PANCREAS: Normal where visualized. LIVER: The liver measures 20.1 cm in length. There is mild increased echogenicity suggesting fatty i nfiltration. Hepatopedal flow in the Portal Vein. GALLBLADDER: Mobile gallstones. No evidence of wall thickening. No pericholecystic fluid identified. BILIARY SYSTEM: Common bile duct measures 8 mm. No intrahepatic biliary ductal dilation. CASTRO'S SIGN: Negative. KIDNEYS: Kidneys are symmetric in size. No evidence of renal calculi. No evidence of hydronephrosis. No renal mass or cyst identified. SPLEEN: The spleen measures 13.9 cm. ASCITES: None seen. IMPRESSION: 1. Limited examination due to patient body habitus. 2. Hepatosplenomegaly. Hepatic steatosis. 3. Cholelithiasis. Mild extrahepatic bile duct dilatation. DATA REPOSITORY:
== END 2020-10-22 01:54 ==
PROVIDERS: PCP Family Medicine; Visit Provider Family Medicine
DX: R16.2 Hepatomegaly with splenomegaly, not elsewhere classified (principal); K80.20 Calculus of gallbladder without cholecystitis without obstruction
CPT/HCPCS: 76700

== ENCOUNTER 2020-10-27 12:28 | Emergency (ER) | payer OTHER, MEDICAID, SELFPAY ==
[2020-10-27 12:38] VITALS: BP 124/70; PULSE 99; RESP 18; TEMP 36.6; O2SAT 96
--- NOTE | 2020-10-27 13:15 | W.ED.GENAD ---
Discharge Plan Disposition Patient Disposition: HOME Condition: Stable Discharge Details Clinical Impression: Anterior epistaxis Primary Care Provider: Erlinda Serrano ED Provider: Susan Marc Home Meds and New Rx's Prescriptions: Continued ibuprofen 600 MG tablet 400 - 600 mg PO DAILY PRN PRNRF: 0 tramadol 50 MG tablet 50 mg PO TID PRNQty: 20 RF: 0 bupropion HCl 150 MG tablet extended release 12 hr 150 mg PO BID RF: 0 risperidone 2 MG tablet 1 mg PO DAILY RF: 0 loratadine 10 MG tablet 10 mg PO DAILY RF: 0 ropinirole 0.5 MG tablet 0.5 mg PO HS RF: 0 lisinopril 10 MG tablet 10 mg PO DAILY RF: 0 hydrochlorothiazide 25 MG tablet 25 mg PO DAILY RF: 0 aspirin [Aspir-81] 81 MG tablet,delayed release (DR/EC) 81 mg PO DAILY RF: 0 zolpidem 10 MG tablet 10 mg PO HS PRNRF: 0 cholecalciferol (vitamin D3) [Vitamin D3] 400 UNIT tablet 400 unit PO DAILY RF: 0 famotidine 20 MG tablet 20 mg PO DAILY RF: 0 levothyroxine [Synthroid] 100 mcg Tablet 100 mcg PO DAILY RF: 0 sertraline 25 mg Tablet 25 mg PO DAILY RF: 0 ibuprofen 600 mg tablet 600 mg PO TID PRN (Reason: pain) Qty: 60 RF: 2 Discharge Instructions Instructions: Oxymetazoline (Into the nose), Nosebleed (ED) Additional Instructions: You are not currently bleeding. I would like to prevent the from recurring. Please try to not bend over. Do not strain. Try not to blow or pick your nose. If you need to sneeze do so with your mouth open. If you begin to begin bleeding, apply 2 sprays of the Afrin provided to both nostrils and apply clamp. Please clamp in place for 20 minutes. If bleeding continues despite this, please return to the emergency department. Please apply nasal saline as discussed to both nostrils [address] a humidifier next to her bed. Please follow-up with your primary care this week for reevaluation. If you develop any new or worsening symptoms please seek care urgently once again. Referrals: Erlinda Serrano MD [Primary Care Provider] - Discharge Data Discharge Date/Time-TO BE ENTERED AT DEPARTURE: 10/27/20 14:00 Medical Decision Making Patient is a pleasant 59-year-old male with past medical history significant for hypertension, obesity. He presents today with chief complaint of epistaxis. He states he began having bloody nose last night. Since then he has had intermittent bleeding, notes, and after bending forward or any type of straining. Patient is on aspirin but is not formally anticoagulated. He denies any trauma. He does state that he has been having some allergies recently and has been blowing his nose. Also reports that his house is dry and he has not been using his humidifier. On exam, patient appears nontoxic. Vital signs are stable. He appears nontoxic. No conjunctival pallor, patient has good color does not appear to be anemic. Patient not actively bleeding. Mucous membranes and nose do appear raw. He has clotted blood in the anterior aspect of the right naris. Patient I discussed treatment options. He is not actively bleeding, I do not see any need for immediate intervention. However, we did discuss prevention measures as well as treatment measures if the bleeding does begin. We will send him home with Afrin as well as nasal clamps and instructions on how to use this. Also encouraged use of nasal saline to help moisturize mucous membranes. Basic epistaxis prevention discussed.. Encouraged to follow-up with primary care. Patient does live locally and is able to return if he develop recurrence or worsening symptoms. All other questions and concerns were addressed and he is in agreement this plan. HPI General Mode of arrival: ambulatory. Date/Time Provider Initiated Documentation: 10/27/20 13:15. Limitations to Documentation: no limitations. Information obtained by: patient and RN notes reviewed. History of Present Illness 60 year old M presents to the emergency department with the chief complaint of Epistaxis, described as moderate, and is localized to the face. Patient reports no radiation. Patient started experiencing this day(s) (1) and it has been intermittent and now resolved. Immobilization improves symptom(s), Other factors that worsen symptoms (Bending forward, increased pressure) . Patient notes no other symptoms.. Patient did receive the following treatments prior to arrival, none Related Data Home Medications Medication Instructions Recorded Confirmed aspirin [Aspir-81] 81 mg PO DAILY 10/16/12 10/27/20 bupropion HCl 150 mg PO BID 10/16/12 10/27/20 hydrochlorothiazide 25 mg PO DAILY 10/16/12 10/27/20 lisinopril 10 mg PO DAILY 10/16/12 10/27/20 loratadine 10 mg PO DAILY 10/16/12 10/27/20 risperidone 1 mg PO DAILY 10/16/12 10/27/20 ropinirole 0.5 mg PO HS 10/16/12 10/27/20 zolpidem 10 mg PO HS PRN 10/16/12 10/27/20 cholecalciferol (vitamin D3) 400 unit PO DAILY 06/30/13 10/27/20 [Vitamin D3] famotidine 20 mg PO DAILY 10/10/16 10/27/20 ibuprofen 400 - 600 mg PO DAILY PRN PRN 12/03/16 06/03/20 tramadol 50 mg PO TID PRN #20 tab-cap 03/03/17 10/27/20 levothyroxine [Synthroid] 100 mcg PO DAILY 09/20/19 10/27/20 sertraline 25 mg PO DAILY 09/20/19 10/27/20 ibuprofen 600 mg PO TID PRN #60 tab 09/26/19 10/27/20 Previous Rx's Medication Instructions Recorded ibuprofen 600 mg PO TID PRN #60 tab 09/26/19 Allergies Allergy/AdvReac Type Severity Reaction Status Date / Time Penicillins Allergy Severe Skin Rash, Unverified 10/27/20 12:43 TONGUE SWELLING Sulfa (Sulfonamide Allergy Intermediate Skin Rash Unverified 10/27/20 12:43 Antibiotics) General Stated Complaint: Epistaxis ZANE: 4 Review of Systems Constitutional Constitutional: Reports as per HPI, Denies chills, Denies fatigue, Denies fever(s) and Denies headache(s) Eyes Eyes: Reports as per HPI, Denies blurry vision and Denies change in vision ENT Ears, Nose, Mouth, and Throat: Reports as per HPI, Denies bleeding gums, Denies change in voice and Denies headache(s) Cardiovascular Cardiovascular: Reports as per HPI, Denies chest pain and Denies dyspnea Respiratory Respiratory: Reports as per HPI, Denies cough, Denies hemoptysis and Denies dyspnea Gastrointestinal Gastrointestinal: Reports as per HPI, Denies melena, Denies hematochezia, Denies nausea and Denies vomiting Genitourinary Genitourinary: Reports as per HPI and Denies hematuria Integumentary/Breasts Skin/Breast: Denies unusual bruising Neurologic Neurologic: Denies headache(s) Endocrine Endocrine: Denies fatigue Hematologic/Lymphatic Hematologic/Lymphatic: Reports as per HPI, Denies easy bleeding and Denies easy bruising [facility] Medical History (Updated 10/27/20 @ 13:52 by CAIN Quinonez) Anxiety Depression GERD (gastroesophageal reflux disease) Hypothyroidism Restless leg syndrome Sleep apnea does not use device Surgical History Colonoscopy - MAC (03/13/16) History of arthroscopy of right knee Dr. Woodall Hx of oral surgery Pt states gum surgery Hx of shoulder surgery L Shoulder Social History Smoking/Tobacco Use Status: Former Tobacco Use Quit Date: 08/16/82 Smoking risk assessment performed?: Yes Alcohol Intake: former Drug use: Never Substance use type: does not use Current gender identity: male Do you feel safe at home: Yes Additional Social history: lives alone Exam Const General: cooperative, healthy appearing, comfortable, no acute distress and well developed Nutritional Appearance: well nourished and obese Orientation: alert and awake [facility] Head: normal to inspection, normocephalic and atraumatic Ears: hearing grossly normal bilaterally General nose exam: external nose normal, nares abnormal (Dried blood anterior along the septum, right side), no nasal polyps, mucous membranes and turbinates abnormal (Mucous membranes appear dry), no nasal discharge and no nasal discharge noted Face and sinus: normal facial exam, sinuses nontender and face symmetric Mouth: oral mucosae normal, lip normal, tongue normal and salivary ducts normal Throat: posterior oropharynx normal (no blood noted), tonsils normal and uvula midline Eyes General: appearance normal, both eyes and all related structures Conjunctivae: conjunctivae normal Neck Neck: normal visual inspection, full ROM, no lymphadenopathy, no meningeal signs and no lymphadenopathy noted Resp Effort & Inspection: normal respiratory effort, able to speak in complete sentences and no respiratory distress Auscultation: clear to auscultation bilaterally Cardio Rate: regular rate Rhythm: regular rhythm Heart Sounds: S1 normal and S2 normal Skin General skin exam: no rashes or lesions noted Neuro General: patient alert, patient awake and patient oriented x3 Cranial Nerves: CN's II-XI intact bilaterally Cognition: normal cognition Speech: speech normal Gait: normal gait Psych Appearance: grossly normal and well kempt Mental Status: mental status grossly normal Speech and Movement: speech and movement normal Course Vital Signs Vital signs: Vital Signs Temperature 36.6 C 10/27/20 12:38 Pulse 99 H 10/27/20 12:38 Respiratory Rate 18 10/27/20 12:38 Blood Pressure 124/70 10/27/20 12:38 Pulse Oximetry 96 10/27/20 12:38 Temperature 36.6 C 10/27/20 12:38 Temperature Source Skin 10/27/20 12:38 Pulse 99 H 10/27/20 12:38 Respiratory Rate 18 10/27/20 12:38 Respiratory Effort Non-Labored 10/27/20 12:42 Blood Pressure 124/70 10/27/20 12:38 Blood Pressure Position Sitting 10/27/20 12:38 Pulse Oximetry 96 10/27/20 12:38 Oxygen Delivery Method Room Air 10/27/20 12:38 Oxygen Flow Rate 0 10/27/20 12:38 Pain Level 0 10/27/20 12:38
[2020-10-27] MEDS: Oxymetazolone 0.05% SPRAY 15 ML BTL NS (13:56)
== END 2020-10-27 14:00 | disposition home or self-care (01) ==
PROVIDERS: Emergency Provider Physician Assistant; PCP Family Medicine
DX: R04.0 Epistaxis (principal)
CPT/HCPCS: 99282; 99283

== ENCOUNTER 2021-10-20 11:14 | Emergency (ER) | payer OTHER, MEDICAID, SELFPAY ==
[2021-10-20 11:18] VITALS: BP 155/84; PULSE 90; RESP 22; TEMP 36.8; O2SAT 96
--- NOTE | 2021-10-20 12:00 | DI.CT_ITS ---
Exam(s) CT LUMBAR SPINE SI JOINTS WO EXAM: CT LUMBAR SPINE SI JOINTS WO CLINICAL HISTORY: fall worsening back pain. TECHNIQUE: Imaging Protocol: Axial computed tomography images with coronal and sagittal reformatted images were created and reviewed CONTRAST MATERIAL: Noncontrast COMPARISON: No exams were available for comparison FINDINGS: Increased image noise due to patient body habitus. Bones: The last intervertebral disc space is designated the L5/S1 level for the numbering purpose of this examination. The vertebral body heights are well maintained. Alignment is satisfactory. No frac ture is seen. There are small endplate osteophytes at multiple levels. T12-L1: No disc herniations or bulges are present. L1-2: No disc herniations or bulges are present. L2-3: No disc herniations or bulges are present. L3-4: No disc herniations or bulges are present. L4-5: No disc herniations or bulges are present. L5-S1: No disc herniations or bulges are present. Soft Tissues: The visualized SI joints and sacrum are will maintained. The paraspinal soft tissues a re unremarkable. IMPRESSION: Mild degenerative disc changes. No evidence of fracture or paraspinal hematoma. RADIATION DOSE DELIVERED: 1,614.05mGy.cm Total DLP DATA REPOSITORY: All CT scans at this facility are submitted to the National Radiology Data Registry (NRDR) Dose Index Registry (DIR) with the [employer] (ACR). RADIATION OPTIMIZATION: All CT scans at this facility use at least one of these dose optimization te chniques: automated exposure control; mA and/or kV adjustment per patient size (includes targeted exa ms where dose is matched to clinical indication); or iterative reconstruction.
[2021-10-20] MEDS: HYDROmorphone 2 MG/ML VIAL 1 MG IVP (12:34)
[2021-10-20] MEDS: Ondansetron 4 MG/2 ML VIAL IVP (12:35)
--- NOTE | 2021-10-20 13:07 | ED.GENADUL_ITS ---
Discharge Plan Disposition Patient Disposition: HOME Condition: Stable Discharge Details Clinical Impression: Acute low back pain due to trauma Primary Care Provider: Erlinda Serrano ED Provider: Dennys Peter Home Meds and New Rx's Prescriptions: New prednisone 50 mg tablet 50 mg PO DAILY Qty: 4 0RF cyclobenzaprine 5 mg tablet 10 mg PO TID PRN (Reason: muscle spasm) Qty: 14 0RF hydrocodone-acetaminophen 5-325 mg tablet 1 tab PO Q6H PRN (Reason: pain) Qty: 6 0RF Continued bupropion HCl 150 MG tablet extended release 12 hr 150 mg PO BID 0RF risperidone 2 MG tablet 1 mg PO DAILY 0RF loratadine 10 MG tablet 10 mg PO DAILY 0RF ropinirole 0.5 MG tablet 0.5 mg PO HS 0RF lisinopril 10 MG tablet 10 mg PO DAILY 0RF hydrochlorothiazide 25 MG tablet 25 mg PO DAILY 0RF aspirin [Aspir-81] 81 MG tablet,delayed release (DR/EC) 81 mg PO DAILY 0RF zolpidem 10 MG tablet 10 mg PO HS PRN0RF cholecalciferol (vitamin D3) [Vitamin D3] 400 UNIT tablet 400 unit PO DAILY 0RF famotidine 20 MG tablet 20 mg PO DAILY 0RF levothyroxine [Synthroid] 100 mcg Tablet 100 mcg PO DAILY 0RF sertraline 25 mg Tablet 25 mg PO DAILY 0RF ibuprofen 600 mg tablet 600 mg PO TID PRN (Reason: pain) Qty: 60 2RF Discontinued tramadol 50 MG tablet 50 mg PO TID PRNQty: 20 0RF Discharge Instructions Instructions: Low Back Strain (ED) Additional Instructions: Please take medication as prescribed and follow-up with your primary care provider for reassessment if not improving in the next week. Please return immediately to the emergency department if you develop any further severe back pain, severe weakness to your lower extremities, fever chills, bowel or bladder incontinence, or further concerns. You may continue to take Aleve daily along with breakthrough narcotic. Referrals: Erlinda Serrano MD [Primary Care Provider] - (If not improving for the next week please follow-up with primary care provider) Discharge Data Discharge Date/Time-TO BE ENTERED AT DEPARTURE: 10/20/21 14:30 Medical Decision Making Patient here for back pain. Patient reports back pain started after fall that occurred 5 weeks ago. he states that pain was mild but has been actually increasing as time goes on instead of improving. He has been using [id number] Aleve which initially helped but no longer is helping. Physical exam shows obese male that has significant and severe pain with any movement or twisting to the lumbar spine. Physical exam shows spinal tenderness to palpation but difficult to determine how much of this is soft tissue versus spinal given body habitus. Given mechanism of injury to include fall we will plan on performing CT imaging for evaluation of fracture. Will give pain medication pending result. At this time I doubt cauda equina or other life- threatening back pain as he has no radiating leg pain, no fever chills, and mechanism of injury is consistent with mechanical source of pain. Radiological imaging shows IMPRESSION: Mild degenerative disc changes. No evidence of fracture or paraspinal hematoma. Patient reassessed and states significant improvement of pain and discomfort. With further discussion he does state some occasional spasms that occur as well. Plan to send patient home with limited narcotic otherwise he may continue daily Aleve, will give patient steroids to see if this helps, along with muscle relaxant. Did discuss with patient risk versus benefit of narcotic pain medication which she signed appropriate paperwork understanding risk versus benefit and precautions. Discussed the diagnosis and risks, and we agree with discharging home to follow- up with their primary doctor. We also discussed returning to the Emergency Department immediately if new or worsening symptoms occur. We have discussed the symptoms which are most concerning (e.g., saddle anesthesia, urinary or bowel incontinence or retention, changing or worsening pain) that necessitate immediate return. HPI General Mode of arrival: EMS . Date/Time Provider Initiated Documentation: 10/20/21 11:27 . Limitations to Documentation: no limitations . Information obtained by: patient . History of Present Illness 60 year old M presents to the emergency department with the chief complaint of back pain after fall, described as severe, with intensity rated at 10. Quality is described as aching and sharp, and is localized to the back. Patient reports no radiation. Patient started experiencing this week(s) (5) and it has been constant. improves with No relieving factors improve symptom(s), Movement worsens symptoms . Patient notes no other symptoms.. Patient did receive the following treatments prior to arrival, NSAID Related Data Home Medications Medication Instructions Recorded Confirmed aspirin 81 mg tablet,delayed 81 mg PO DAILY 10/16/12 10/20/21 release (Aspir-) bupropion HCl 150 mg tablet,12 hr 150 mg PO BID 10/16/12 10/20/21 sustained-release hydrochlorothiazide 25 mg tablet 25 mg PO DAILY 10/16/12 10/20/21 lisinopril 10 mg tablet 10 mg PO DAILY 10/16/12 10/20/21 loratadine 10 mg tablet 10 mg PO DAILY 10/16/12 10/20/21 risperidone 2 mg tablet 1 mg PO DAILY 10/16/12 10/20/21 ropinirole 0.5 mg tablet 0.5 mg PO HS 10/16/12 10/20/21 zolpidem 10 mg tablet 10 mg PO HS PRN 10/16/12 10/20/21 cholecalciferol (vitamin D3) 10 400 unit PO DAILY 06/30/13 10/20/21 mcg (400 unit) tablet (Vitamin D3) famotidine 20 mg tablet 20 mg PO DAILY 10/10/16 10/20/21 levothyroxine 100 mcg tablet 100 mcg PO DAILY 09/20/19 10/20/21 (Synthroid) sertraline 25 mg tablet 25 mg PO DAILY 09/20/19 10/20/21 ibuprofen 600 mg tablet 600 mg PO TID PRN #60 tab 09/26/19 10/20/21 cyclobenzaprine 5 mg tablet 10 mg PO TID PRN #14 tab 10/20/21 hydrocodone 5 mg-acetaminophen 325 1 tab PO Q6H PRN #6 tab 10/20/21 mg tablet prednisone 50 mg tablet 50 mg PO DAILY #4 tab 10/20/21 Previous Rx's Medication Instructions Recorded ibuprofen 600 mg tablet 600 mg PO TID PRN #60 tab 09/26/19 cyclobenzaprine 5 mg tablet 10 mg PO TID PRN #14 tab 10/20/21 hydrocodone 5 mg-acetaminophen 325 1 tab PO Q6H PRN #6 tab 10/20/21 mg tablet prednisone 50 mg tablet 50 mg PO DAILY #4 tab 10/20/21 Allergies Allergy/AdvReac Type Severity Reaction Status Date / Time Penicillins Allergy Severe Skin Rash, Unverified 10/20/21 11:29 TONGUE SWELLING Sulfa (Sulfonamide Allergy Intermediate Skin Rash Unverified 10/20/21 11:29 Antibiotics) General Stated Complaint: Nk/Back Pain ZANE: 4 Review of Systems Constitutional Constitutional: Denies chills and Denies fever(s) Cardiovascular Cardiovascular: Denies chest pain and Denies dyspnea on exertion Respiratory Respiratory: Denies cough and Denies dyspnea on exertion Gastrointestinal Gastrointestinal: Denies abdominal pain, Denies change in bowel habits, Denies diarrhea, Denies nausea and Denies vomiting Genitourinary Genitourinary: Denies difficulty urinating and Denies urinary incontinence Musculoskeletal Musculoskeletal: Reports as per HPI and Reports back pain Neurologic Neurologic: Denies sensory deficit PFSH All Active Problems (Updated 10/20/21 @ 14:13 by Dennys Peter NP) Anterior epistaxis (Acute) Acute low back pain due to trauma (Acute) Screening for colorectal cancer (Acute) Primary osteoarthritis of right knee (Acute) Injected: 06/26/2019 Primary osteoarthritis of left knee (Acute) Injected: 06/26/2019 Hypertension (Chronic) Insomnia (Acute) Obesity (Chronic) Tear of medial meniscus of left knee (Acute 09/26/19) Status post knee arthroscopy -partial medial meniscectomy and plica excision Medical History (Updated 10/20/21 @ 14:13 by Dennys Peter NP) Anxiety Depression GERD (gastroesophageal reflux disease) Hypothyroidism Restless leg syndrome Sleep apnea does not use device Surgical History Colonoscopy - MAC (03/13/16) History of arthroscopy of right knee Dr. Woodall Hx of oral surgery Pt states gum surgery Hx of shoulder surgery L Shoulder Social History Smoking/Tobacco Use Status: Former Tobacco Use Quit Date: 08/16/82 Smoking risk assessment performed?: Yes Alcohol Intake: former Drug use: Never Substance use type: does not use Current gender identity: male Do you feel safe at home: Yes Do you feel safe in your relationship?: Yes Additional Social history: lives alone Exam Const General: cooperative and no acute distress Orientation: alert, awake and oriented x3 Neck Neck: normal visual inspection, full ROM and no meningeal signs Resp Effort & Inspection: normal respiratory effort Auscultation: clear to auscultation bilaterally Cardio Rate: regular rate Rhythm: regular rhythm Heart Sounds: S1 normal and S2 normal GI Inspection: obesity (Exam limited by significant obesity) Palpation: soft and nontender Auscultation: normal bowel sounds Back/Spine/Pelvis Back: no CVA tenderness Thoracic/Lumbar Spine: pain with thoraco-lumbar ROM and thoraco-lumbar ROM limited Pelvis: no pain with anterior-posterior compression, buttock tenderness on the left and sciatic notch tenderness on the left Sacrum: no ecchymosis Neuro General: patient alert, patient awake and patient oriented x3 DTR's: Rt Patellar: 2+ and Lt Patellar: 2+ Course Vital Signs Vital signs: Vital Signs Temperature 36.8 C 10/20/21 11:18 Pulse 90 10/20/21 11:18 Respiratory Rate 22 10/20/21 11:18 Blood Pressure 155/84 H 10/20/21 11:18 Pulse Oximetry 96 10/20/21 11:18 Temperature 36.8 C 10/20/21 11:18 Temperature Source Temporal Artery Scan 10/20/21 11:18 Pulse 90 10/20/21 11:18 Respiratory Rate 22 10/20/21 11:18 Respiratory Effort Non-Labored 10/20/21 11:25 Blood Pressure 155/84 H 10/20/21 11:18 Blood Pressure Position Sitting 10/20/21 11:18 Pulse Oximetry 96 10/20/21 11:18 Oxygen Delivery Method Room Air 10/20/21 11:18 Oxygen Flow Rate 0 10/20/21 11:18 Pain Level 10 10/20/21 11:27
[2021-10-20 13:54] VITALS: BP 133/73; PULSE 78; RESP 18; TEMP 36.2; O2SAT 93
== END 2021-10-20 14:30 | disposition home or self-care (01) ==
PROVIDERS: Emergency Provider Nurse Practitioner Family; PCP Family Medicine
DX: M54.50 Low back pain, unspecified (principal); W18.39XA Other fall on same level, initial encounter
CPT/HCPCS: 36415; 96374; 96375; 99284; 72131; 99283; J2405

== ENCOUNTER 2021-10-23 20:24 | Outpatient (REF) | payer OTHER, MEDICAID, SELFPAY ==
[2021-10-23 14:48] LABS: ALT 29 U/L (16-63); AST 14 U/L (15-37); Albumin 3.4 g/dL (3.4-5.0); Alkaline Phosphatase 134 U/L (46-116); Anion Gap 12.7 mmol/L (3-11); BUN 23 mg/dL (7-18); Bilirubin, Total 0.4 mg/dL (0.2-1.0); CO2 24.3 mmol/L (21.0-32.0); Calcium 8.5 mg/dL (8.5-10.1); Chloride 104 mmol/L (98-107); Glucose 103 mg/dL (74-106); Potassium 4.2 mmol/L (3.5-5.1); Sodium 141 mmol/L (136-145); TSH (W/Ref FT4) 0.83 uIU/mL (0.36-3.74); Total Protein 6.9 g/dL (6.4-8.2)
[2021-10-24 10:32] LABS: HIV-1/2 Ag & Ab Screen Negative (Negative)
== END 2021-10-23 20:25 | disposition home or self-care (01) ==
LOC: NCHCN 20:24
PROVIDERS: PCP Family Medicine; Visit Provider Family Medicine
DX: I10 Essential (primary) hypertension (principal); E03.9 Hypothyroidism, unspecified; R60.0 Localized edema; Z11.4 Encounter for screening for human immunodeficiency virus [HIV]
CPT/HCPCS: 80053; 87389; 83036; 84443

== ENCOUNTER 2022-02-25 11:15 | Emergency (ER) | payer OTHER, MEDICAID, SELFPAY ==
[2022-02-25 11:18] VITALS: BP 140/58; PULSE 98; RESP 16; TEMP 36.9; O2SAT 95
--- NOTE | 2022-02-25 11:30 | DI.RAD_ITS ---
Exam(s) XR ANKLE RT COMPLETE EXAM: XR ANKLE RT COMPLETE CLINICAL HISTORY: fall, right ankle pain. TECHNIQUE: 2D digital imaging was performed. COMPARISON: CR LEFT ANKLE COMPLETE from 04/03/2010 FINDINGS: 3 views There is abundant soft tissue swelling laterally. However, there is no evidence of acute fracture or widening of the ankle mortise. Talar dome appears unremarkable. Lesser amount of swelling is noted medially. No obvious degenerative changes in the ankle and tibiotalar joints. Prominent inferior calcaneal spur noted. IMPRESSION: Soft tissue swelling but no fractures evident. No widening of the ankle mortise. DATA REPOSITORY: RADIATION DOSE DELIVERED:
--- NOTE | 2022-02-25 11:30 | DI.US_ITS ---
Exam(s) US LOWER EXTREMITY VENOUS RT EXAM: US LOWER EXTREMITY VENOUS RT CLINICAL HISTORY: swelling, eval for clot TECHNIQUE: Grayscale, color, and doppler imaging of the deep venous system of the right lower extrem ity was performed. COMPARISON: US US ABDOMEN from 10/22/2020 FINDINGS: There is no evidence of intraluminal thrombus and there is normal compression and augmentation demons trated within the common femoral vein, femoral vein, and popliteal vein. In the ipsilateral calf the interrogated veins also exhibit normal compression/ augmentation properti es. The ipsilateral saphenofemoral junction is patent. IMPRESSION: 1. No evidence of DVT in the right lower extremity. DATA REPOSITORY:
--- NOTE | 2022-02-25 11:31 | W.ED.GENAD ---
Discharge Plan Disposition Patient Disposition: HOME Condition: Good Discharge Details Clinical Impression: Contusion of leg, right, Right leg swelling Primary Care Provider: Erlinda Serrano ED Provider: Charlie Pacheco Home Meds and New Rx's Prescriptions: New clindamycin HCl 150 mg capsule 450 mg PO Q6H 7 Days Qty: 84 0RF Continued bupropion HCl 150 MG tablet extended release 12 hr 150 mg PO BID risperidone 2 MG tablet 1 mg PO DAILY loratadine 10 MG tablet 10 mg PO DAILY ropinirole 0.5 MG tablet 0.5 mg PO HS lisinopril 10 MG tablet 10 mg PO DAILY hydrochlorothiazide 25 MG tablet 25 mg PO DAILY aspirin [Aspir-81] 81 MG tablet,delayed release (DR/EC) 81 mg PO DAILY zolpidem 10 MG tablet 10 mg PO HS PRN cholecalciferol (vitamin D3) [Vitamin D3] 400 UNIT tablet 400 unit PO DAILY famotidine 20 MG tablet 20 mg PO DAILY levothyroxine [Synthroid] 100 mcg Tablet 100 mcg PO DAILY sertraline 25 mg Tablet 25 mg PO DAILY ibuprofen 600 mg tablet 600 mg PO TID PRN (Reason: pain) Qty: 60 2RF prednisone 50 mg tablet 50 mg PO DAILY Qty: 4 0RF cyclobenzaprine 5 mg tablet 10 mg PO TID PRN (Reason: muscle spasm) Qty: 14 0RF hydrocodone-acetaminophen 5-325 mg tablet 1 tab PO Q6H PRN (Reason: pain) Qty: 6 0RF Discharge Instructions Instructions: Cellulitis (ED), R.I.C.E. Treatment (ED) Additional Instructions: At this time your exam does not show any evidence of a blood clot or fracture of the bones. Currently there does not appear to be any evidence of infection, however this may develop with time. If you notice any spreading of the redness, fevers, or chills please take the antibiotic as directed. Otherwise I would recommend holding off on taking the antibiotic unless you notice any of these symptoms. You have been given a prescription which you can fill if you do know any of these concerning symptoms. Please continue to use ice, elevation, and wrapping with compression stockings on your leg to help with the swelling. If you notice any worsening of your symptoms, or any new symptoms such as vomiting, diarrhea, fever, chills, shortness of breath, chest pain, numbness, weakness, or fainting , please return immediately to the emergency department for reevaluation. Please follow up with your primary care provider as soon as possible for reassessment and reevaluation. As always, it was a pleasure participating in your medical care today. Referrals: Erlinda Serrano MD [Primary Care Provider] - Medical Decision Making This is a pleasant 61-year-old male who presents today for evaluation of swelling in his right lower extremity. Patient states that about a week and a half ago he was standing on a chair when it slipped and his leg got caught in the chair. Since then he has had pain in his ankle, and swelling in the right lower extremity. He denies any chest pain or shortness of breath. He denies any new numbness or tingling. No history of blood clots before. He does have a history of cellulitis, but denies any fever or chills. No other complaints at this time. Pain is made worse with palpation and ambulation. Improved with icing. No other modifying factors. Exam demonstrates swelling in the right lower extremity around the calf and right ankle. There is also some bruising. No redness or warmth to suggest cellulitis, but there is some violaceous coloring secondary to bruising and trauma. Differential includes ankle sprain versus fracture which is less likely. Differential also includes DVT potentially. We will get an x-ray and ultrasound, monitor closely and reassess. 12:20 PM X-ray result and ultrasound are negative for acute process, fracture, or DVT. Symptoms inconsistent with cellulitis. Suspect continued contusion and swelling secondary to this. Recommend compression stocking, ice, and continued elevation. Patient is concerned for cellulitis, and although none is present now, we did have a long discussion of symptoms that would represent infection for which to take an antibiotic. He will be sent home with a prescription, but I have recommended that he did not fill it unless he does develop redness and fever. I did discuss the risk of antibiotics if they are improperly used. Patient will be discharged home. Discussed red flags for which to return. I have extensively reviewed the treatment plan and discharge instructions with the patient. I have addressed all patient concerns at this time. The patient was made aware of what symptoms to monitor for that would warrant a return to the emergency department. Discussed the plan with the patient, they demonstrate verbal understanding and agreement with our assessment and plan at this time. The documentation in this chart was dictated using [employer] dictation software. Please excuse any dictation errors. FINDINGS: 3 views There is abundant soft tissue swelling laterally. However, there is no evidence of acute fracture or widening of the ankle mortise. Talar dome appears unremarkable. Lesser amount of swelling is noted medially. No obvious degenerative changes in the ankle and tibiotalar joints. Prominent inferior calcaneal spur noted. IMPRESSION: Soft tissue swelling but no fractures evident. No widening of the ankle mortise. FINDINGS: There is no evidence of intraluminal thrombus and there is normal compression and augmentation demonstrated within the common femoral vein, femoral vein, and popliteal vein. In the ipsilateral calf the interrogated veins also exhibit normal compression/ augmentation properties. The ipsilateral saphenofemoral junction is patent. IMPRESSION: 1. No evidence of DVT in the right lower extremity. HPI General Date/Time Provider Initiated Documentation: 02/25/22 11:19. HPI Narrative: This is a pleasant 61-year-old male who presents today for evaluation of swelling in his right lower extremity. Patient states that about a week and a half ago he was standing on a chair when it slipped and his leg got caught in the chair. Since then he has had pain in his ankle, and swelling in the right lower extremity. He denies any chest pain or shortness of breath. He denies any new numbness or tingling. No history of blood clots before. He does have a history of cellulitis, but denies any fever or chills. No other complaints at this time. Pain is made worse with palpation and ambulation. Improved with icing. No other modifying factors. Related Data Home Medications Medication Instructions Recorded Confirmed aspirin 81 mg tablet,delayed 81 mg PO DAILY 10/16/12 02/25/22 release (Aspir-) bupropion HCl 150 mg tablet,12 hr 150 mg PO BID 10/16/12 02/25/22 sustained-release hydrochlorothiazide 25 mg tablet 25 mg PO DAILY 10/16/12 02/25/22 lisinopril 10 mg tablet 10 mg PO DAILY 10/16/12 02/25/22 loratadine 10 mg tablet 10 mg PO DAILY 10/16/12 02/25/22 risperidone 2 mg tablet 1 mg PO DAILY 10/16/12 02/25/22 ropinirole 0.5 mg tablet 0.5 mg PO HS 10/16/12 02/25/22 zolpidem 10 mg tablet 10 mg PO HS PRN 10/16/12 02/25/22 cholecalciferol (vitamin D3) 10 400 unit PO DAILY 06/30/13 02/25/22 mcg (400 unit) tablet (Vitamin D3) famotidine 20 mg tablet 20 mg PO DAILY 10/10/16 02/25/22 levothyroxine 100 mcg tablet 100 mcg PO DAILY 09/20/19 02/25/22 (Synthroid) sertraline 25 mg tablet 25 mg PO DAILY 09/20/19 02/25/22 ibuprofen 600 mg tablet 600 mg PO TID PRN pain #60 tabs 09/26/19 02/25/22 cyclobenzaprine 5 mg tablet 10 mg PO TID PRN muscle spasm #14 10/20/21 02/25/22 tabs hydrocodone 5 mg-acetaminophen 325 1 tab PO Q6H PRN pain #6 tabs 10/20/21 02/25/22 mg tablet prednisone 50 mg tablet 50 mg PO DAILY #4 tabs 10/20/21 02/25/22 clindamycin HCl 150 mg capsule 450 mg PO Q6H 7 days #84 caps 02/25/22 Previous Rx's Medication Instructions Recorded ibuprofen 600 mg tablet 600 mg PO TID PRN pain #60 tabs 09/26/19 cyclobenzaprine 5 mg tablet 10 mg PO TID PRN muscle spasm #14 10/20/21 tabs hydrocodone 5 mg-acetaminophen 325 1 tab PO Q6H PRN pain #6 tabs 10/20/21 mg tablet prednisone 50 mg tablet 50 mg PO DAILY #4 tabs 10/20/21 clindamycin HCl 150 mg capsule 450 mg PO Q6H 7 days #84 caps 02/25/22 Allergies Allergy/AdvReac Type Severity Reaction Status Date / Time Penicillins Allergy Severe Skin Rash, Unverified 02/25/22 11:22 TONGUE SWELLING Sulfa (Sulfonamide Allergy Intermediate Skin Rash Unverified 02/25/22 11:22 Antibiotics) General Stated Complaint: Vascular ZANE: 4 Review of Systems All systems reviewed & are unremarkable except as noted in HPI and below PFSH All Active Problems (Updated 02/25/22 @ 12:04 by Charlie Pachceo DO) Anterior epistaxis (Acute) Contusion of leg, right (Acute) Right leg swelling (Acute) Screening for colorectal cancer (Acute) Primary osteoarthritis of right knee (Acute) Injected: 06/26/2019 Primary osteoarthritis of left knee (Acute) Injected: 06/26/2019 Hypertension (Chronic) Insomnia (Acute) Obesity (Chronic) Tear of medial meniscus of left knee (Acute 09/26/19) Status post knee arthroscopy -partial medial meniscectomy and plica excision Medical History (Updated 02/25/22 @ 12:04 by Charlie Pacheco DO) Anxiety Depression GERD (gastroesophageal reflux disease) Hypothyroidism Restless leg syndrome Sleep apnea does not use device Surgical History Colonoscopy - MAC (03/13/16) History of arthroscopy of right knee Dr. Woodall Hx of oral surgery Pt states gum surgery Hx of shoulder surgery L Shoulder Social History Smoking/Tobacco Use Status: Former Tobacco Use Quit Date: 08/16/82 Smoking risk assessment performed?: Yes Alcohol Intake: former Drug use: Never Substance use type: does not use Current gender identity: male Do you feel safe at home: Yes Do you feel safe in your relationship?: Yes Additional Social history: lives alone Exam Narrative Exam Narrative: 1.Const: Well-nourished, Well-developed, appearing stated age 2.Eyes: PERRL, no conjunctival injection, and symmetrical lids. 3.ENT: Atraumatic external nose and ears. Moist MM. Neck: Symmetric, trachea midline, No thyromegaly. 4.CVS: +S1/S2, No murmurs or gallops. Peripheral pulses 2+ and equal in all extremities. Brisk capillary refill in all extremities. 5.RESP: Unlabored respiratory effort. Clear to auscultation bilaterally. No wheezes rales or rhonchi 6.GI: Soft, Nontender/Nondistended, No hepatosplenomegaly. No guarding or rebound. 7.MSK: Mild swelling of the right lower extremity, swelling around the calf and tenderness there as well. Bruising around the right lateral posterior calf, as well as the anterior ivey. Mild tenderness and swelling over the lateral ankle as well. Pain with movement of the ankle but no significant joint laxity. Capillary refill is brisk in all toes, sensation is intact. Dorsalis pedis pulse +2 bilaterally. No significant atypical warmth. No redness that would suggest cellulitis. 8.Skin: Warm, Dry. 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 Sensation grossly intact, no focal neurologic deficits. 10.Psych: (AAO) x3. Appropriate mood and affect Course Vital Signs Vital signs: Vital Signs Temperature 36.9 C 02/25/22 11:18 Pulse 98 H 02/25/22 11:18 Respiratory Rate 16 02/25/22 11:18 Blood Pressure 140/58 L 02/25/22 11:18 Pulse Oximetry 95 02/25/22 11:18 Temperature 36.9 C 02/25/22 11:18 Temperature Source Temporal Artery Scan 02/25/22 11:18 Pulse 98 H 02/25/22 11:18 Respiratory Rate 16 02/25/22 11:18 Respiratory Effort 02/25/22 11:23 Blood Pressure 140/58 L 02/25/22 11:18 Blood Pressure Position Sitting 02/25/22 11:18 Pulse Oximetry 95 02/25/22 11:18 Oxygen Delivery Method Room Air 02/25/22 11:18 Oxygen Flow Rate 0 02/25/22 11:18 Pain Level 8 02/25/22 11:18
[2022-02-25 11:34] VITALS: RESP 18
== END 2022-02-25 12:13 | disposition home or self-care (01) ==
PROVIDERS: Emergency Provider Student in an Organized Health Care Education/Training Program; PCP Family Medicine
DX: S80.11XA Contusion of right lower leg, initial encounter (principal); W23.1XXA Caught, crushed, jammed, or pinched between stationary objects, initial encounter; Z87.891 Personal history of nicotine dependence
CPT/HCPCS: 99284; 73610; 93971

== ENCOUNTER 2022-10-16 17:38 | Outpatient (REF) | payer OTHER, MEDICAID, SELFPAY ==
[2022-10-16 18:38] LABS: Anion Gap 6.4 mmol/L (3-11); BUN 11 mg/dL (7-18); CO2 29.6 mmol/L (21.0-32.0); CREATININE 0.9 mg/dL (0.70-1.30); Calcium 10.1 mg/dL (8.5-10.1); Chloride 100 mmol/L (98-107); Estimated GFR 97.17 (mL/min/1.73m2); Glucose 113 mg/dL (74-106); Potassium 4.9 mmol/L (3.5-5.1); Sodium 136 mmol/L (136-145); TSH (W/Ref FT4) 1.52 uIU/mL (0.36-3.74)
== END 2022-10-16 17:39 | disposition home or self-care (01) ==
LOC: NCHCN 17:38
PROVIDERS: PCP Family Medicine; Visit Provider Family Medicine
DX: I10 Essential (primary) hypertension (principal); E03.9 Hypothyroidism, unspecified
CPT/HCPCS: 80048; 84443

== ENCOUNTER 2022-10-20 01:37 | Outpatient (CLI) | payer OTHER, MEDICAID, SELFPAY ==
--- NOTE | 2022-10-20 | DI.RAD_ITS ---
Exam(s) XR KNEE RT 3V AP,LAT,ELVIS EXAM: XR KNEE RT 3V AP,LAT,ELVIS CLINICAL HISTORY: KNEE JOINT PAIN > 3 MONTHS, RT, M25.561. TECHNIQUE: 2D digital imaging was performed. COMPARISON: CR XR KNEE LT 3V AP,LAT,ELVIS from 06/26/2019 FINDINGS: 3 views No evidence fracture. Small joint effusion. Advanced narrowing of the medial compartment almost bon e-on-bone. Lesser degenerative changes lateral compartment. No osseous lesions. IMPRESSION: Significant degenerative changes in the medial compartment. Small joint effusion DATA REPOSITORY: RADIATION DOSE DELIVERED:
== END 2022-10-20 01:57 ==
PROVIDERS: PCP Family Medicine; Visit Provider Family Medicine
DX: M25.561 Pain in right knee (principal); M25.461 Effusion, right knee; M17.11 Unilateral primary osteoarthritis, right knee
CPT/HCPCS: 73562

== ENCOUNTER 2023-04-04 10:02 | Emergency (ER) | payer OTHER, MEDICAID, SELFPAY ==
[2023-04-04 10:21] VITALS: BP 139/81; PULSE 101; RESP 18; TEMP 36.4; O2SAT 97
--- NOTE | 2023-04-04 10:31 | ED.GENADUL_ITS ---
Discharge Plan Disposition Patient Disposition: Home Condition: Stable Discharge Details Clinical Impression: Back strain Primary Care Provider: Erlinda Serrano ED Provider: Chinedu Valiente Home Meds and New Rx's Prescriptions: New cyclobenzaprine 5 mg tablet 5 mg PO QHS PRN (Reason: muscle spasm) Qty: 10 0RF lidocaine [Lidoderm] 5 % adhesive patch,medicated 1 patch topical DAILY PRNQty: 15 0RF Rx Instructions: leave on most painful area for up to 12 hrs No Action bupropion HCl 150 MG tablet extended release 12 hr 150 mg PO BID risperidone 2 MG tablet 1 mg PO DAILY loratadine 10 MG tablet 10 mg PO DAILY ropinirole 0.5 MG tablet 0.5 mg PO HS lisinopril 10 MG tablet 10 mg PO DAILY hydrochlorothiazide 25 MG tablet 25 mg PO DAILY aspirin [Aspir-81] 81 MG tablet,delayed release (DR/EC) 81 mg PO DAILY zolpidem 10 MG tablet 10 mg PO HS PRN cholecalciferol (vitamin D3) [Vitamin D3] 400 UNIT tablet 400 unit PO DAILY famotidine 20 MG tablet 20 mg PO DAILY levothyroxine [Synthroid] 100 mcg Tablet 100 mcg PO DAILY sertraline 25 mg Tablet 25 mg PO DAILY ibuprofen 600 mg tablet 600 mg PO TID PRN (Reason: pain) Qty: 60 2RF prednisone 50 mg tablet 50 mg PO DAILY Qty: 4 0RF cyclobenzaprine 5 mg tablet 10 mg PO TID PRN (Reason: muscle spasm) Qty: 14 0RF hydrocodone-acetaminophen 5-325 mg tablet 1 tab PO Q6H PRN (Reason: pain) Qty: 6 0RF Discharge Instructions Instructions: Thoracic Back Strain (ED) Medical Decision Making 62-year-old male presents after sustaining upper back strain while attempting to catch something that was falling off the roof of his car yesterday. Latissimus tenderness on examination, no midline spinal tenderness. Neurologically intact. Low suspicion for spinal cord injury or central neurologic process. Trial of anti-inflammatory analgesia. Home care instructions and return precautions give HPI General Date/Time Provider Initiated Documentation: 04/04/23 10:24 . HPI Narrative: 62-year-old presents 1 day after back injury strain to catch something up sliding off of his car felt discomfort in the muscles of his upper left back. No chest pain or shortness of breath no other injuries. Able to walk without issues. No weakness numbness or other neurologic symptomatology Related Data Home Medications Medication Instructions Recorded Confirmed aspirin 81 mg tablet,delayed 81 mg PO DAILY 10/16/12 04/04/23 release (Aspir-) bupropion HCl 150 mg tablet,12 hr 150 mg PO BID 10/16/12 04/04/23 sustained-release hydrochlorothiazide 25 mg tablet 25 mg PO DAILY 10/16/12 04/04/23 lisinopril 10 mg tablet 10 mg PO DAILY 10/16/12 04/04/23 loratadine 10 mg tablet 10 mg PO DAILY 10/16/12 04/04/23 risperidone 2 mg tablet 1 mg PO DAILY 10/16/12 04/04/23 ropinirole 0.5 mg tablet 0.5 mg PO HS 10/16/12 04/04/23 zolpidem 10 mg tablet 10 mg PO HS PRN 10/16/12 04/04/23 cholecalciferol (vitamin D3) 10 400 unit PO DAILY 06/30/13 04/04/23 mcg (400 unit) tablet (Vitamin D3) famotidine 20 mg tablet 20 mg PO DAILY 10/10/16 04/04/23 levothyroxine 100 mcg tablet 100 mcg PO DAILY 09/20/19 04/04/23 (Synthroid) sertraline 25 mg tablet 25 mg PO DAILY 09/20/19 04/04/23 ibuprofen 600 mg tablet 600 mg PO TID PRN pain #60 tabs 09/26/19 04/04/23 cyclobenzaprine 5 mg tablet 10 mg PO TID PRN muscle spasm #14 10/20/21 02/25/22 tabs hydrocodone 5 mg-acetaminophen 325 1 tab PO Q6H PRN pain #6 tabs 10/20/21 04/04/23 mg tablet prednisone 50 mg tablet 50 mg PO DAILY #4 tabs 10/20/21 04/04/23 cyclobenzaprine 5 mg tablet 5 mg PO QHS PRN muscle spasm #10 04/04/23 tabs lidocaine 5 % topical patch 1 patch topical DAILY PRN #15 ea 04/04/23 (Lidoderm) Previous Rx's Medication Instructions Recorded ibuprofen 600 mg tablet 600 mg PO TID PRN pain #60 tabs 09/26/19 cyclobenzaprine 5 mg tablet 10 mg PO TID PRN muscle spasm #14 10/20/21 tabs hydrocodone 5 mg-acetaminophen 325 1 tab PO Q6H PRN pain #6 tabs 10/20/21 mg tablet prednisone 50 mg tablet 50 mg PO DAILY #4 tabs 10/20/21 cyclobenzaprine 5 mg tablet 5 mg PO QHS PRN muscle spasm #10 04/04/23 tabs lidocaine 5 % topical patch 1 patch topical DAILY PRN #15 ea 04/04/23 (Lidoderm) Allergies Allergy/AdvReac Type Severity Reaction Status Date / Time Penicillins Allergy Severe Skin Rash, Unverified 04/04/23 10:24 TONGUE SWELLING Sulfa (Sulfonamide Allergy Intermediate Skin Rash Unverified 04/04/23 10:24 Antibiotics) General Stated Complaint: Nk/Back Pain ZANE: 4 Review of Systems Narrative: Review of Systems Constitutional: negative Eyes: negative ENT: negative Cardiovascular: negative Respiratory: negative Gastrointestinal: negative : negative Musculoskeletal: Back pain Skin: negative Neurologic: negative Psych: negative PFSH All Active Problems (Updated 04/04/23 @ 10:34 by Chinedu Valiente MD) Anterior epistaxis (Acute) Back strain (Acute) Screening for colorectal cancer (Acute) Primary osteoarthritis of right knee (Acute) Injected: 06/26/2019 Primary osteoarthritis of left knee (Acute) Injected: 06/26/2019 Hypertension (Chronic) Insomnia (Acute) Obesity (Chronic) Tear of medial meniscus of left knee (Acute 09/26/19) Status post knee arthroscopy -partial medial meniscectomy and plica excision Medical History (Updated 04/04/23 @ 10:34 by Chinedu Valiente MD) Anxiety Depression GERD (gastroesophageal reflux disease) Hypothyroidism Restless leg syndrome Sleep apnea does not use device Surgical History Colonoscopy - MAC (03/13/16) History of arthroscopy of right knee Dr. Woodall Hx of oral surgery Pt states gum surgery Hx of shoulder surgery L Shoulder Social History Smoking/Tobacco Use Status: Former Tobacco Use Quit Date: 08/16/82 Smoking risk assessment performed?: Yes Alcohol Intake: former Drug use: Never Substance use type: does not use Current gender identity: male Do you feel safe at home: Yes Do you feel safe in your relationship?: Yes Additional Social history: lives alone Exam Narrative Exam Narrative: Physical Examination General: alert, awake, cooperative, resting comfortably, no acute distress HEENT: normocephalic, atraumatic; PERRL, EOM intact, conjunctiva normal; no nasal discharge; moist mucous membranes, oral and pharyngeal mucosa normal, tolerating secretions Neck: supple, trachea midline; full ROM Chest: normal to inspection Respiratory: normal respiratory effort, speaking in full sentences Back: No midline spinal tenderness, patient does not some muscle tension within left Skin: no lesions, rashes or trauma appreciated Neuro: AAOx3, normal speech, moving all extremities; ambulatory without assistance Extremities: Moving all extremities no trauma Psych: Appropriate mood and affect Course Vital Signs Vital signs: Vital Signs Temperature 36.4 C L 04/04/23 10:21 Pulse 101 H 04/04/23 10:21 Respiratory Rate 18 04/04/23 10:21 Blood Pressure 139/81 04/04/23 10:21 Pulse Oximetry 97 04/04/23 10:21 Temperature 36.4 C L 04/04/23 10:21 Temperature Source Skin 04/04/23 10:21 Pulse 101 H 04/04/23 10:21 Respiratory Rate 18 04/04/23 10:21 Blood Pressure 139/81 04/04/23 10:21 Blood Pressure Position Sitting 04/04/23 10:21 Pulse Oximetry 97 04/04/23 10:21 Oxygen Delivery Method Room Air 04/04/23 10:21 Oxygen Flow Rate 0 04/04/23 10:21 Pain Level 10 04/04/23 10:21
[2023-04-04] MEDS: Ketorolac 15 MG/ML VIAL IM (10:36)
[2023-04-04] MEDS: Lidocaine 5% Patch 1 PATCH TP (10:37)
== END 2023-04-04 11:02 | disposition home or self-care (01) ==
LOC: ER 10:34
PROVIDERS: Emergency Provider Emergency Medicine; PCP Family Medicine
DX: S39.012A Strain of muscle, fascia and tendon of lower back, initial encounter (principal); X50.0XXA Overexertion from strenuous movement or load, initial encounter; Y93.89 Activity, other specified; Y92.512 Supermarket, store or market as the place of occurrence of the external cause; Y99.9 Unspecified external cause status; Z87.891 Personal history of nicotine dependence
CPT/HCPCS: 96372; 99283; 99282; J1885

== ENCOUNTER → 2023-09-08 00:59 | Outpatient (CLI) | payer OTHER, MEDICAID, SELFPAY ==
--- NOTE | 2023-09-08 08:00 | DI.US_ITS ---
APPROVED REPORT EXAM: Comprehensive 2D, Doppler, and color-flow Echocardiogram Patient Location: Out-Patient Talent Acquisition Lead: Jeremy Bai RDCS (AE) Indications: aortic regurgitation, dyspnea on exertion Other Information Technically limited study due to body habitus. Conclusion Technically limited study 1. Normal chamber sizes. 2. Normal LV function, EF 65%. Normal RV function. 3. Anatomically normal valves. Trace AI,TR. 4. No pericardial effusion. Wall motion Left Ventricle The left ventricle is normal size. The left ventricular systolic function is normal. The left ventric ular ejection fraction is within the normal range. There is normal left ventricular wall thickness. T here is normal LV segmental wall motion. There is no ventricular septal defect visualized. LVEF is 57 %. Right Ventricle The right ventricle is normal size. The right ventricular systolic function is normal. Atria The left atrium size is normal. The right atrium size is normal. The interatrial septum is intact wit h no evidence for an atrial septal defect. Aortic Valve The aortic valve is normal in structure. Number of aortic valve leaflets could not be assessed. There is no aortic valvular stenosis. Trace aortic regurgitation. Mitral Valve The mitral valve is normal in structure. No evidence of mitral valve stenosis. No Mitral Regurgitatio n. Tricuspid Valve The tricuspid valve is normal in structure. There is no tricuspid valve stenosis. Trace tricuspid reg urgitation. Unable to assess PA pressure. Pulmonic Valve The pulmonary valve is normal in structure. There is no pulmonic valvular stenosis. There is no pulmo rory valvular regurgitation. Great Vessels The aortic root is normal in size. The ascending aorta is moderately dilated. IVC is normal in size a nd collapses >50% with inspiration. Pericardium There is no pericardial effusion. 2D Dimensions IVSD d PLAX 0.86 cm M: 0.6-1.2 Ao Root d 3.11 cm M: 3.1 - 3.7 LVPW d PLAX 0.79 cm M: 0.6 - 1.2 Ao Asc Diam d 4.17 cm M: 2.6 - 3.4 LVID d PLAX 4.15 cm M: 4.2 - 5.8 LVDs 2.95 cm M: 2.5 - 4.0 LV EF Teichholz 55.8 % FS 28.77 % LV EDV (Teich) 76.2 mL LV ESV (Teich) 33.7 mL Stroke Vol Index (Teich) 16.82 M-Mode TAPSE 2.35 cm (M/F) >1.7 Auto EF LV EDV A4C 123.4 mL LV EDV A2C 91.4 mL LV EDV BP 106.5 mL LV ESV A4C 52.6 mL LV ESV A2C 39.6 mL LV ESV BP 45.5 mL LVEF(%) A4C 57.4 % LVEF(%) A2C 56.6 % LVEF(%) BP 57.3 % LV SV A4C 70.8 ml LV SV A2C 51.8 ml LV SV BP 61.0 ml LV CO A4C 6.7 L/min LV CO A2C 4.7 L/min LV CO BP 5.7 L/min HR A4C 94.73 BPM HR A2C 90.46 BPM LV EDV Index (BP) LA Volume LA Length A4C 6.6 cm LA Length A2C 5.6 cm LA Area A4C s 13.31 cm2 LA Area A2C s 11.76 cm2 LA Vol A4C A-L 22.81 mL LA Vol A2C A-L 21.09 mL LA Vol Biplane A-L 23.9 mL LA Vol/BSA A4C A-L LA Vol/BSA A2C A-L LA Vol/BSA BP A-L 9.4 mL/m2 LA Vol A4C MOD 22.6 mL LA Vol A2C MOD 20.4 mL LA Vol BP MOD 23.0 mL RA Volume RA Area A4C 9.3 cm2 RA ESV A4C (A-L) 16.5mL RA Vol/BSA A4C A-L RA Length A4C 4.4 cm RA ESV A4C (MOD) 16.7mL LV Diastology MV E' medial 0.082 (>0.07 m/s) MV E Vmax 0.63 (0.4-1.3 m/s) MV E/E' MED 7.69 (<14) MV A Vmax 0.75 (0.4-1.3 m/s) MV E' lateral 0.088 (>0.1 m/s) E/A Ratio 0.8 MV E/E' LAT 7.15 (<14) MV E' Average 0.085 m/s MV E/E'(average) 7.41 Aortic Valve AoV Vmax 1.25 m/s LVOT Vmax 1.10 m/s AoV Peak Grad 29.9 mmHg LVOT Peak Grad 4.8 mmHg AoV Area (Vmax) 2.82 cm2 LVOT VTI 0.217 m AoV VTI 0.211 m LVOT Mean Grad 2.4 mmHg AoV Mean James. 0.90 m/s LVOT SV 69.59 mL AoV Mean Grad 3.5 mmHg LVOT Diam s 2.00 cm AoV Area (VTI) 3.29 cm2 AV Regurg Peak Gr. 53.50 mmHg Velocity Ratio 0.88 AR Decel Monona 2.6m/sec2 AR DT 1420 msec AR PHT 412 msec AR Vmax 3.66 m/s Mitral Valve MV DT 117 (160-240 msec) Pulmonary Valve PV Vmax 0.84 (0.5-1.5 m/s) RVOT Vmax 0.80 m/s PV Peak Grad 2.8 mmHg RVOT Peak Gr. 2.6 mmHg PV Mean James 0.62 m/s RVOT VTI 0.148 m PV Mean Grad 1.7 mmHg RVOT Mean Gr. 1.5 mmHg
== END ==
PROVIDERS: PCP Nurse Practitioner; Visit Provider Nurse Practitioner
DX: I35.1 Nonrheumatic aortic (valve) insufficiency (principal); R06.09 Other forms of dyspnea
CPT/HCPCS: 93306

== ENCOUNTER 2023-09-11 12:07 | Emergency (ER) | payer OTHER, MEDICAID, SELFPAY ==
[2023-09-11 12:16] VITALS: BP 166/90; PULSE 98; RESP 18; TEMP 36.6; O2SAT 98
[2023-09-11 13:30] VITALS: BP 140/87; PULSE 95; RESP 14; O2SAT 94
--- NOTE | 2023-09-12 08:10 | ED.GENADUL_ITS ---
HPI General Date/Time Provider Initiated Documentation: 09/11/23 12:23 . HPI Narrative: 62-year-old male presents with report of rash which started on his arms and has moved to his thorax over the course of the past several 2 weeks. He describes rashes papular and itchy. He denies any difficulty swallowing or shortness of breath. He denies any new detergents, soaps, or obvious new exposures. He denies history of similar symptoms in the past. He did try applying some triamcinolone to his right arm and it did improve his symptoms, he has since run out of medication and not been able to replace it. He states last night his rash on his thorax was so itchy that he was unable to sleep secondary to pruritus. Related Data Home Medications Medication Instructions Recorded Confirmed lisinopril 10 mg tablet 10 mg PO DAILY 10/16/12 09/11/23 loratadine 10 mg tablet 10 mg PO DAILY 10/16/12 09/11/23 levothyroxine 100 mcg tablet 100 mcg PO DAILY 09/20/19 09/11/23 (Synthroid) sertraline 25 mg tablet 25 mg PO DAILY 09/20/19 09/11/23 lidocaine 5 % topical patch 1 patch topical DAILY PRN #15 ea 04/04/23 09/11/23 (Lidoderm) atorvastatin 20 mg tablet 20 mg PO QHS 06/30/23 09/11/23 diclofenac sodium 1 % topical gel 2 g topical BID 06/30/23 09/11/23 (Voltaren Arthritis Pain) furosemide 20 mg tablet 20 mg PO DAILY 06/30/23 09/11/23 metformin 500 mg tablet,extended 1,000 mg PO DAILY 06/30/23 09/11/23 release 24 hr naltrexone 50 mg tablet 25 mg PO BID 06/30/23 09/11/23 omeprazole 20 mg capsule,delayed 20 mg PO DAILY 06/30/23 09/11/23 release risperidone 0.25 mg tablet 0.25 mg PO DAILY 06/30/23 09/11/23 ropinirole 1 mg tablet 1 mg PO QHS 06/30/23 09/11/23 spironolactone 25 mg tablet 25 mg PO DAILY 06/30/23 09/11/23 triamcinolone acetonide 0.1 % 1 applic topical BID 06/30/23 09/11/23 topical cream aspirin 81 mg tablet,delayed 81 mg PO DAILY #90 tabs 07/20/23 09/11/23 release cyclobenzaprine 10 mg tablet 10 mg PO TID PRN muscle spasm #60 07/20/23 09/11/23 tabs bupropion HCl 150 mg tablet,12 hr See Rx Instructions PO .COMPLEX 08/12/23 09/11/23 sustained-release #270 tabs clotrimazole 1 % lotion 1 applic topical TID #30 mL 09/11/23 miconazole nitrate 2 % topical 1 spray topical BID #150 grams 09/11/23 spray (Lotrimin AF) prednisone 20 mg tablet 40 mg (2 x 20 mg) PO ONCE #10 tabs 09/11/23 Previous Rx's Medication Instructions Recorded lidocaine 5 % topical patch 1 patch topical DAILY PRN #15 ea 04/04/23 (Lidoderm) aspirin 81 mg tablet,delayed 81 mg PO DAILY #90 tabs 07/20/23 release cyclobenzaprine 10 mg tablet 10 mg PO TID PRN muscle spasm #60 07/20/23 tabs bupropion HCl 150 mg tablet,12 hr See Rx Instructions PO .COMPLEX 08/12/23 sustained-release #270 tabs clotrimazole 1 % lotion 1 applic topical TID #30 mL 09/11/23 miconazole nitrate 2 % topical 1 spray topical BID #150 grams 09/11/23 spray (Lotrimin AF) prednisone 20 mg tablet 40 mg (2 x 20 mg) PO ONCE #10 tabs 09/11/23 Allergies Allergy/AdvReac Type Severity Reaction Status Date / Time Penicillins Allergy Severe Skin Rash, Verified 09/11/23 12:14 TONGUE SWELLING Sulfa (Sulfonamide Allergy Intermediate Skin Rash Verified 09/11/23 12:14 Antibiotics) clindamycin Allergy Mild Verified 09/11/23 12:14 oxacillin Allergy Mild Verified 09/11/23 12:14 General Stated Complaint: RashLesion ZANE: 4 Course Vital Signs Vital signs: Vital Signs Temperature 36.6 C 09/11/23 12:16 Pulse 98 H 09/11/23 12:16 Respiratory Rate 18 09/11/23 12:16 Blood Pressure 166/90 H 09/11/23 12:16 Pulse Oximetry 98 09/11/23 12:16 Temperature 36.6 C 09/11/23 12:16 Temperature Source Oral 09/11/23 12:16 Pulse 95 H 09/11/23 13:30 Respiratory Rate 14 09/11/23 13:30 Respiratory Effort Normal, Non-Labored 09/11/23 12:20 Blood Pressure 140/87 09/11/23 13:30 Pulse Oximetry 94 09/11/23 13:30 Pain Level 0 09/11/23 12:16 Medical Decision Making This 62-year-old male is presenting with rash to thorax Papular rash, some mild excoriations likely from itching out evidence of secondary infection localized to the left side of chest and thorax and right scapular region Secondary to severity of symptoms I did order prednisone for several days, patient will purchase [id number] triamcinolone to apply topically and as he has evidence of tinea corporis underneath bilateral upper pectoral regions, he will purchase some Lotrimin to apply to these areas Patient uvula midline, no evidence of intraoral involvement, lungs clear to auscultation, cardiac rate rhythm regular, otherwise in no acute distress, discharged home encouraged to follow-up in the outpatient setting and to return earlier should he have new or worsening complaints Recommended to use dye and fragrance free soaps and detergents Quality:SDOH Health Related Social Needs: No Data to Display PFSH All Active Problems (Updated 09/11/23 @ 13:23 by CAIN Robertson) Contact dermatitis (Acute) Tinea corporis (Acute) Prediabetes (Acute 01/2019) Hyperlipidemia (Acute) Aortic regurgitation (Acute) Left ventricular hypertrophy (Acute) Fatty infiltration of liver (Acute) Cholelithiasis (Acute) Anterior epistaxis (Acute) Screening for colorectal cancer (Acute) Primary osteoarthritis of right knee (Acute) Injected: 06/26/2019 Primary osteoarthritis of left knee (Acute) Injected: 06/26/2019 Hypertension (Chronic) Insomnia (Acute) Obesity (Chronic) Tear of medial meniscus of left knee (Acute 09/26/19) Status post knee arthroscopy -partial medial meniscectomy and plica excision Medical History (Updated 09/11/23 @ 13:23 by CAIN Robertson) Superficial thrombosis of leg (04/05/20) Hypothyroidism Anxiety Depression GERD (gastroesophageal reflux disease) Restless leg syndrome Sleep apnea does not use device Surgical History Hx of oral surgery Pt states gum surgery Hx of shoulder surgery L Shoulder History of arthroscopy of right knee Dr. Talisha AREVALO (03/13/16) Social History (Updated 07/13/23 @ 13:50 by Gina Henriquez LPN) Smoking/Tobacco Use Status: Former Tobacco Use Quit Date: 08/16/82 Smoking risk assessment performed?: Yes Alcohol Intake: former Drug use: Never Substance use type: does not use Adopted: Yes Caregiver/Support person: Yes Foster care: Yes Housing: apartment Number of Children: 3 number of grandchildren: 8 Communication Needs: None Education Level: high school Do you need help understanding health information?: Never current occupation: unemployed Pets and animals: Yes Pets and animals: dog(s) Sexually active: No Do you think of yourself as: straight/heterosexual Current gender identity: male What is your relationship status?: How often do you talk on the phone with friends or family?: three or more times per week How often do you get together with friends or relatives?: twice per week Do you belong to any clubs or organized social groups?: no Panel score (0-1 are the most socially isolated patients): 1 What type of physical activity do you participate in: walking Duration: 15-30 minutes/day Frequency: daily Seatbelt use: never Helmet use: No Drive intox or ride w/intox 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 truck driver: No Working smoke detector in home: Yes Carbon monox detector in home: Yes Do you feel safe at home: Yes Do you feel safe in your relationship?: Yes Victim of physical abuse: No Victim of emotional abuse: No Additional Social history: lives alone Discharge Plan Disposition Patient Disposition: Home Discharge Details Clinical Impression: Tinea corporis, Contact dermatitis Primary Care Provider: Leena Berry ED Provider: Becca Matt Home Meds and New Rx's Prescriptions: New prednisone 20 mg tablet 40 mg PO ONCE Qty: 10 0RF Lotrimin AF 2 % aerosol,spray 1 spray topical BID Qty: 150 0RF clotrimazole 1 % lotion 1 applic topical TID Qty: 30 0RF Continued triamcinolone acetonide 0.1 % cream 1 applic topical BID diclofenac sodium [Voltaren Arthritis Pain] 1 % gel 2 g topical BID ropinirole 1 mg tablet 1 mg PO QHS Rx Instructions: administer 1-3 hours before bedtime atorvastatin 20 mg tablet 20 mg PO QHS omeprazole 20 mg capsule,delayed release(DR/EC) 20 mg PO DAILY risperidone 0.25 mg tablet 0.25 mg PO DAILY spironolactone 25 mg tablet 25 mg PO DAILY furosemide 20 mg tablet 20 mg PO DAILY naltrexone 50 mg tablet 25 mg PO BID metformin 500 mg tablet extended release 24 hr 1,000 mg PO DAILY aspirin 81 mg tablet,delayed release (DR/EC) 81 mg PO DAILY Qty: 90 3RF cyclobenzaprine 10 mg tablet 10 mg PO TID PRN (Reason: muscle spasm) Qty: 60 0RF bupropion HCl 150 mg tablet sustained-release 12 hr See Rx Instructions PO .COMPLEX Qty: 270 0RF Rx Instructions: 2 tabs in the AM and one in the PM orally; loratadine 10 MG tablet 10 mg PO DAILY lisinopril 10 MG tablet 10 mg PO DAILY lidocaine [Lidoderm] 5 % adhesive patch,medicated 1 patch topical DAILY PRNQty: 15 0RF Rx Instructions: leave on most painful area for up to 12 hrs levothyroxine [Synthroid] 100 mcg Tablet 100 mcg PO DAILY sertraline 25 mg Tablet 25 mg PO DAILY Discharge Instructions Instructions: Skin Yeast Infection (ED), Dermatitis (ED) Additional Instructions: Take the prednisone as prescribed Apply the Lotrimin underneath the pectoral muscle where you have rashes, this is a yeast infection Should you have worsening symptoms, spreading redness, fever, worsening pain, please be reassessed Follow-up with your doctor at your scheduled appointment and return earlier should you have new or worsening complaints Referrals: Leena Berry NP [Primary Care Provider] - Discharge Data Discharge Date/Time-TO BE ENTERED AT DEPARTURE: 09/11/23 13:32
== END 2023-09-11 13:32 | disposition home or self-care (01) ==
PROVIDERS: Emergency Provider Physician Assistant; PCP Nurse Practitioner
DX: B35.4 Tinea corporis (principal); L25.9 Unspecified contact dermatitis, unspecified cause; Z79.82 Long term (current) use of aspirin; Z79.899 Other long term (current) drug therapy; Z88.0 Allergy status to penicillin; Z88.2 Allergy status to sulfonamides; Z88.1 Allergy status to other antibiotic agents
CPT/HCPCS: 82962; 99283

== ENCOUNTER 2023-09-22 10:57 | Outpatient (CLI) | payer OTHER, MEDICAID, SELFPAY ==
[2023-09-22 11:20] LABS: Abs Immature Grans 0.08 10^3/uL (0.0-0.06); Absolute Basophil Count 0.08 10^3/uL (0.0-0.2); Absolute Eosinophil Count 0.74 10^3/uL (0.0-0.7); Absolute Lymphocyte Count 3.34 10^3/uL (1.2-3.4); Absolute Monocyte Count 0.78 10^3/uL (0.1-0.8); Basophils % 0.7; Eosinophils % 6.2; HCT 45.4 % (40.0-50.0); HGB 14.6 g/dL (13.5-17.5); Immature Grans % 0.7; Lymphocytes % 28.2; MCH 28.5 pg (27.0-33.0); MCHC 32.2 % (32.0-36.0); MCV 89 fL (80-95); MPV 9.7 fL (8.0-11.0); Monocytes % 6.6; Neutrophils % 57.6; Platelet Count 389 10^3/uL (130-400); RBC 5.12 10^6/uL (4.36-5.78); RDW 13.9 % (11.8-14.1); RDW-SD 44.8 fL; WBC 11.86 10^3/uL (4.4-10.8)
[2023-09-22 11:21] LABS: Absolute Neutrophil Count 6.83 10^3/uL (1.2-6.7)
[2023-09-22 11:45] LABS: ALT 31 U/L (16-63); AST 15 U/L (15-37); Albumin 3.5 g/dL (3.4-5.0); Alkaline Phosphatase 106 U/L (46-116); Anion Gap 10.3 mmol/L (3-11); BUN 16 mg/dL (7-18); Bilirubin, Total 0.6 mg/dL (0.2-1.0); CO2 28.7 mmol/L (21.0-32.0); CREATININE 1.1 mg/dL (0.70-1.30); Calcium 9.2 mg/dL (8.5-10.1); Chloride 101 mmol/L (98-107); Glucose 101 mg/dL (74-106); Potassium 3.8 mmol/L (3.5-5.1); Sodium 140 mmol/L (136-145); TSH (W/Ref FT4) 2.96 uIU/mL (0.36-3.74); Total Protein 7.4 g/dL (6.4-8.2)
[2023-09-22 12:00] LABS: Hemoglobin A1C 5.7 % (<5.7)
[2023-09-22 13:55] LABS: Calculated LDL 48 mg/dL (<100); Cholesterol 129 mg/dL (<200); HDL Cholesterol 57 mg/dL (40-60); Triglyceride 122 mg/dL (<150)
== END 2023-09-22 10:58 | disposition home or self-care (01) ==
LOC: LBO 10:57
PROVIDERS: PCP Nurse Practitioner; Visit Provider Nurse Practitioner
DX: E78.5 Hyperlipidemia, unspecified (principal); I10 Essential (primary) hypertension; R73.03 Prediabetes; E03.9 Hypothyroidism, unspecified
CPT/HCPCS: 36415; 80053; 80061; 83036; 84443; 85025

== ENCOUNTER 2023-09-28 16:25 | Emergency (ER) | payer OTHER, MEDICAID, SELFPAY ==
[2023-09-28] VITALS (19 sets, daily range): BP systolic 117–134; BP diastolic 61–91; PULSE 98–118; RESP 20–30; TEMP 36.7; O2SAT 90–95
--- NOTE | 2023-09-28 17:15 | DI.RAD_ITS ---
Exam(s) XR CHEST 1V IN DI DEPT EXAM: XR CHEST 1V IN DI DEPT CLINICAL HISTORY: fall TECHNIQUE: 2D digital imaging was performed. COMPARISON: CR CHEST 2 VIEWS PA,LAT from 08/17/2017 FINDINGS: Exam limited by patient body habitus. LUNGS: Grossly clear. No pleural abnormality seen. HEART: Enlarged. AORTA: Normal diameter. BONES: Unremarkable for age. Soft tissues: Unremarkable. IMPRESSION: Limited exam. No acute findings. DATA REPOSITORY: RADIATION DOSE DELIVERED:
--- NOTE | 2023-09-28 17:15 | RT.EKG_ITS ---
APPROVED REPORT Exam: Resting ECG Reason for Exam: sob Patient Location: E HR:104 bpm ECG Measurements Heart Rate 104 AXIS PA 164 P 58 QRSd 76 QRS 12 QT 316 T 62 QTc 416 Conclusion Sinus tachycardia...rate> [address] segment or T wave abnormlaiteis to suggest occlusive SC.
--- NOTE | 2023-09-28 17:15 | DI.CT_ITS ---
Exam(s) CT PELVIC WO EXAM: CT PELVIC WO CLINICAL HISTORY: inability to ambulate. TECHNIQUE: Imaging Protocol: Axial computed tomography images with coronal and sagittal reformatted images were created and reviewed. CONTRAST MATERIAL: Oral: No COMPARISON: No exams were available for comparison FINDINGS: Bladder: Symmetric distention, no gross wall thickening. Bowel: No obstruction or bowel wall thickening. Peritoneal cavity: No ascites, collection or mesenteric inflammatory response. Reproductive: Unremarkable. Bones: No fracture. L3-4 through L5-S1 disc spaces are maintained. Hip joint spaces are maintained . SI joints and pubic symphysis are not widened. Soft tissues: Unremarkable. No hematoma. IMPRESSION: Normal CT scan of the pelvis. No evidence of fracture. RADIATION DOSE DELIVERED: 799.96mGy.cmTotal DLP DATA REPOSITORY: All CT scans at this facility are submitted to the National Radiology Data Registry (NRDR) Dose Index Registry (DIR) with the [employer] ([employer]). RADIATION OPTIMIZATION: All CT scans at this facility use at least one of these dose optimization te chniques: automated exposure control; mA and/or kV adjustment per patient size (includes targeted exa ms where dose is matched to clinical indication); or iterative reconstruction.
--- NOTE | 2023-09-28 17:18 | W.ED.GENAD ---
HPI General Mode of arrival: EMS. Date/Time Provider Initiated Documentation: 09/28/23 16:30. Limitations to Documentation: no limitations. Information obtained by: patient and EMS. HPI Narrative: 62yo M with hypothyroid, depression, GERD, HTN, obesity, presenting for generalized weakness with three falls from standing today. Has felt generally weak and unwell for about a week, also has had some shortness of breath with exertion and a mild cough for the same period of time. Today his whole body felt weak and he was unable to keep his feet, fell to the ground. No head strike or loss of consciousness. Nothing hurts currently. Has a diffuse pruritic rash for about a month, PCP thinks possible bedbugs. He is otherwise in his usual state of health with no fevers, chills, rash, nausea, vomiting, abdominal pain, chest pain, focal weakness, numbness, headache, vertigo, vsion changes, or other concerns. Related Data Home Medications Medication Instructions Recorded Confirmed lisinopril 10 mg tablet 10 mg PO DAILY 10/16/12 09/28/23 loratadine 10 mg tablet 10 mg PO DAILY 10/16/12 09/28/23 levothyroxine 100 mcg tablet 100 mcg PO DAILY 09/20/19 09/28/23 (Synthroid) sertraline 25 mg tablet 25 mg PO DAILY 09/20/19 09/28/23 lidocaine 5 % topical patch 1 patch topical DAILY PRN #15 ea 04/04/23 09/28/23 (Lidoderm) atorvastatin 20 mg tablet 20 mg PO QHS 06/30/23 09/28/23 diclofenac sodium 1 % topical gel 2 g topical BID 06/30/23 09/28/23 (Voltaren Arthritis Pain) furosemide 20 mg tablet 20 mg PO DAILY 06/30/23 09/28/23 metformin 500 mg tablet,extended 1,000 mg PO DAILY 06/30/23 09/28/23 release 24 hr naltrexone 50 mg tablet 25 mg PO BID 06/30/23 09/28/23 omeprazole 20 mg capsule,delayed 20 mg PO DAILY 06/30/23 09/28/23 release risperidone 0.25 mg tablet 0.25 mg PO DAILY 06/30/23 09/28/23 ropinirole 1 mg tablet 1 mg PO QHS 06/30/23 09/28/23 spironolactone 25 mg tablet 25 mg PO DAILY 06/30/23 09/28/23 triamcinolone acetonide 0.1 % 1 applic topical BID 06/30/23 09/28/23 topical cream aspirin 81 mg tablet,delayed 81 mg PO DAILY #90 tabs 07/20/23 09/28/23 release cyclobenzaprine 10 mg tablet 10 mg PO TID PRN muscle spasm #60 07/20/23 09/28/23 tabs bupropion HCl 150 mg tablet,12 hr See Rx Instructions PO .COMPLEX 08/12/23 09/28/23 sustained-release #270 tabs miconazole nitrate 2 % topical 1 spray topical BID #150 grams 09/11/23 09/28/23 spray (Lotrimin AF) clotrimazole 1 % lotion 1 applic topical TID rash on 09/27/23 09/28/23 chest, abdomen, LEs #250 mL colloidal oatmeal 1 % topical 1 applic topical TID #206 grams 09/27/23 09/28/23 cream (Aveeno Moisturizing) prednisone 20 mg tablet 20 mg PO DAILY #10 tabs 09/27/23 09/28/23 Previous Rx's Medication Instructions Recorded lidocaine 5 % topical patch 1 patch topical DAILY PRN #15 ea 04/04/23 (Lidoderm) aspirin 81 mg tablet,delayed 81 mg PO DAILY #90 tabs 07/20/23 release cyclobenzaprine 10 mg tablet 10 mg PO TID PRN muscle spasm #60 07/20/23 tabs bupropion HCl 150 mg tablet,12 hr See Rx Instructions PO .COMPLEX 08/12/23 sustained-release #270 tabs miconazole nitrate 2 % topical 1 spray topical BID #150 grams 09/11/23 spray (Lotrimin AF) clotrimazole 1 % lotion 1 applic topical TID rash on 09/27/23 chest, abdomen, LEs #250 mL colloidal oatmeal 1 % topical 1 applic topical TID #206 grams 09/27/23 cream (Aveeno Moisturizing) prednisone 20 mg tablet 20 mg PO DAILY #10 tabs 09/27/23 Allergies Allergy/AdvReac Type Severity Reaction Status Date / Time Penicillins Allergy Severe Skin Rash, Verified 09/28/23 16:30 TONGUE SWELLING Sulfa (Sulfonamide Allergy Intermediate Skin Rash Verified 09/28/23 16:30 Antibiotics) clindamycin Allergy Mild unknown Verified 09/28/23 16:30 oxacillin Allergy Mild unknown Verified 09/28/23 16:30 General Stated Complaint: Fall/Non TraumaCriteria ZANE: 3 Review of Systems Narrative: see HPI Exam Narrative Exam Narrative: GENERAL: Alert, no acute distress. SKIN: Warm and well perfused. Scattered erythematous rash with papules, no dermatomal pattern HEAD: Atraumatic, normocephalic without edema, discoloration or evidence of trauma. EYES: PERRL. No scleral icterus or conjunctival injection. Extraocular muscles intact without nystagmus or diplopia. EARS: No hemotympanum. NECK: Trachea midline. No discolorations or edema. CV: Tachycardiac, regular, Normal s1 and s2. No murmurs, rubs, or gallops. PV: Radial pulses 2+ bilaterally and symmetric.. 2+ capillary refill. CHEST: No abrasions or ecchymosis. Chest symmetric with respirations. No chest wall tenderness. Lungs are clear to auscultation bilaterally. ABDOMEN: No ecchymosis or abrasions. Soft, nondistended, nontender. BACK: No abrasions, skin openings, or ecchymosis. Spine without bony tenderness, no step offs. PELVIC: Pelvis stable, nontender to lateral compression MSK: No gross deformities or discolorations or lesions. Tolerates full range of motion of extremities without tenderness. NEURO: Alert and oriented to person, place, and time. GCS 15. Sensation grossly intact. Moves all extremities freely against gravity. Finger to nose intact bilaterally. Course Vital Signs Vital signs: Vital Signs Temperature 36.7 C 09/28/23 16:25 Pulse 118 H 09/28/23 16:25 Respiratory Rate 20 09/28/23 16:25 Blood Pressure 134/61 09/28/23 16:25 Pulse Oximetry 92 09/28/23 16:25 Temperature 36.7 C 09/28/23 16:25 Pulse 118 H 09/28/23 16:25 Respiratory Rate 20 09/28/23 16:25 Respiratory Effort Short of Breath 09/28/23 16:29 Blood Pressure 134/61 09/28/23 16:25 Blood Pressure Position Sitting 09/28/23 16:25 Pulse Oximetry 92 09/28/23 16:25 Oxygen Delivery Method Room Air 09/28/23 16:25 Oxygen Flow Rate 0 09/28/23 16:25 Pain Level 0 09/28/23 16:25 Medical Decision Making 62yo M with hypothyroid, depression, GERD, HTN, obesity, presenting for generalized weakness with three falls from standing today. One week of feeling unwell with NOVOA and cough. Today fell three times from standing; no HS or LOC, no pain or injury. States he cannot walk currently. No presyncope. Slightly tachycardiac to 110's on arrival, vital signs otherwise reassuring. Baseline HR on [facility] record review ~100. No significant traumatic findings on exam, however exam limited 2/t body habitus; will evaluate with pelvic CT for occult fracture and CXR . EKG sinus tachycardia, no ST segment or T wave abnormalities to suggest occlusive AR. No lower extremity edema, pleuritic pain, or hypoxia to suggest pulmonary embolism; would not pursue further. Labs reviewed as below, CBC with no anemia or leukocytosis, CMP reassuring with no actionable abnormalities, troponin negative in the setting of 1+ week of symptoms; would not further pursue acute coronary syndrome. BNP normal, reassuring against CHF. CT independently reviewed, no displaced fracture on my view, agree with radiology read below. CXR independently reviewed; no focal pneumonia or pneumothorax on my view, agree with radiology read below. Viral swab + for covid. With 1+ week of symptoms patient out of window for paxlovid. Patient with difficulty ambulating in the department. Was able to ambulate independently with walker though did feel more dyspneic. Normal O2 sat with ambulation. Suspect combination of COVID and obesity/deconditioning. He is very against staying in the hospital and would like to go home which is not unreasonable, does not want home PT. Discharged home; discharge instructions and return precautions were reviewed with patient who verbalized understanding. All questions were answered and he is in full agreement with the plan. Imaging Data Radiologic Study: Imaging: X-Ray Radiologist's impression: IMPRESSION: Limited exam. No acute findings Radiologic Study #2: Imaging: CT Scan Radiologist's impression: IMPRESSION: Normal CT scan of the pelvis. No evidence of fracture. Lab Data Lab results reviewed: Yes I reviewed the patient's lab results. Labs: Laboratory Tests Range/Units 09/28/23 09/28/23 17:30 17:33 WBC (4.4-10.8) 10^3/uL 5.45 RBC (4.36-5.78) 10^6/uL 4.91 Hgb (13.5-17.5) g/dL 14.2 Hct (40.0-50.0) % 42.8 MCV (80-95) fL 87 MCH (27.0-33.0) pg 28.9 MCHC (32.0-36.0) % 33.2 RDW (11.8-14.1) % 13.9 Plt Count (130-400) 10^3/uL 233 MPV (8.0-11.0) fL 9.7 Immature Gran % 0.6 Neutrophils % 72.5 Lymphocytes % 17.6 Monocytes % 7.9 Eosinophils % 0.7 Basophils % 0.7 Nucleated RBC % (0.0-0.3) % 0.0 Absolute Neutrophils (1.2-6.7) 10^3/uL 3.95 Absolute Lymphocytes (1.2-3.4) 10^3/uL 0.96 L Absolute Monocytes (0.1-0.8) 10^3/uL 0.43 Absolute Eosinophils (0.0-0.7) 10^3/uL 0.04 Absolute Basophils (0.0-0.2) 10^3/uL 0.04 Sodium (136-145) mmol/L 133 L Cancelled Potassium (3.5-5.1) mmol/L 4.7 Cancelled Chloride (98-107) mmol/L 97 L Cancelled Carbon Dioxide (21.0-32.0) mmol/L 27.0 Cancelled Anion Gap (3-11) mmol/L 9.0 Cancelled BUN (7-18) mg/dL 12 Cancelled Creatinine (0.70-1.30) mg/dL 1.0 Cancelled Est GFR (CKD-EPI 2020) (mL/min/1.73m2) 85.10 Cancelled Glucose (74-106) mg/dL 116 H Cancelled Calcium (8.5-10.1) mg/dL 8.4 L Cancelled Total Bilirubin (0.2-1.0) mg/dL 0.4 Cancelled AST (15-37) U/L 24 Cancelled ALT (16-63) U/L 30 Cancelled Alkaline Phosphatase (46-116) U/L 100 Cancelled Troponin I (< or =60) ng/L < 50 Cancelled NT-Pro-B Natriuret Pep (<300) pg/mL 39 Cancelled Total Protein (6.4-8.2) g/dL 6.6 Cancelled Albumin (3.4-5.0) g/dL 3.0 L Cancelled COVID-19 Source Nasopharynx SARS-CoV-2 (PCR) (Negative) Positive A Influenza Type A (PCR) (Negative) Negative Influenza Type B (PCR) (Negative) Negative RSV (PCR) (Negative) Negative Quality:SDOH Health Related Social Needs: No Data to Display PFSH All Active Problems (Updated 09/28/23 @ 21:13 by Radha Dunn MD) COVID-19 (Acute) Contact dermatitis (Acute) Tinea corporis (Acute) Prediabetes (Acute 01/2019) Hyperlipidemia (Acute) Aortic regurgitation (Acute) Left ventricular hypertrophy (Acute) Fatty infiltration of liver (Acute) Cholelithiasis (Acute) Anterior epistaxis (Acute) Screening for colorectal cancer (Acute) Primary osteoarthritis of right knee (Acute) Injected: 06/26/2019 Primary osteoarthritis of left knee (Acute) Injected: 06/26/2019 Hypertension (Chronic) Insomnia (Acute) Obesity (Chronic) Tear of medial meniscus of left knee (Acute 09/26/19) Status post knee arthroscopy -partial medial meniscectomy and plica excision Medical History (Updated 09/28/23 @ 21:13 by Radha Dunn MD) Superficial thrombosis of leg (04/05/20) Hypothyroidism Anxiety Depression GERD (gastroesophageal reflux disease) Restless leg syndrome Sleep apnea does not use device Surgical History Hx of oral surgery Pt states gum surgery Hx of shoulder surgery L Shoulder History of arthroscopy of right knee Dr. Talisha Johnson - [facility] (03/13/16) Social History (Updated 07/13/23 @ 13:50 by Gina Henriquez LPN) Smoking/Tobacco Use Status: Former Tobacco Use Quit Date: 08/16/82 Smoking risk assessment performed?: Yes Alcohol Intake: former Drug use: Never Substance use type: does not use Adopted: Yes Caregiver/Support person: Yes Foster care: Yes Housing: apartment Number of Children: 3 number of grandchildren: 8 Communication Needs: None Education Level: high school Do you need help understanding health information?: Never current occupation: unemployed Pets and animals: Yes Pets and animals: dog(s) Sexually active: No Do you think of yourself as: straight/heterosexual Current gender identity: male What is your relationship status?: How often do you talk on the phone with friends or family?: three or more times per week How often do you get together with friends or relatives?: twice per week Do you belong to any clubs or organized social groups?: no Panel score (0-1 are the most socially isolated patients): 1 What type of physical activity do you participate in: walking Duration: 15-30 minutes/day Frequency: daily Seatbelt use: never Helmet use: No Drive intox or ride w/intox funeral driver: No Working smoke detector in home: Yes Carbon monox detector in home: Yes Do you feel safe at home: Yes Do you feel safe in your relationship?: Yes Victim of physical abuse: No Victim of emotional abuse: No Additional Social history: lives alone Discharge Plan Disposition Patient Disposition: Home Condition: Good Discharge Details Clinical Impression: COVID-19 Primary Care Provider: Leena Berry ED Provider: Radha Dunn Home Meds and New Rx's Prescriptions: Continued clotrimazole 1 % lotion 1 applic topical TID Qty: 250 3RF prednisone 20 mg tablet 20 mg PO DAILY Qty: 10 0RF Aveeno Moisturizing 1 % cream 1 applic topical TID Qty: 206 3RF Rx Instructions: Apply to dry skin upper and lower extremities. triamcinolone acetonide 0.1 % cream 1 applic topical BID diclofenac sodium [Voltaren Arthritis Pain] 1 % gel 2 g topical BID ropinirole 1 mg tablet 1 mg PO QHS Rx Instructions: administer 1-3 hours before bedtime atorvastatin 20 mg tablet 20 mg PO QHS omeprazole 20 mg capsule,delayed release(DR/EC) 20 mg PO DAILY risperidone 0.25 mg tablet 0.25 mg PO DAILY spironolactone 25 mg tablet 25 mg PO DAILY furosemide 20 mg tablet 20 mg PO DAILY naltrexone 50 mg tablet 25 mg PO BID metformin 500 mg tablet extended release 24 hr 1,000 mg PO DAILY aspirin 81 mg tablet,delayed release (DR/EC) 81 mg PO DAILY Qty: 90 3RF cyclobenzaprine 10 mg tablet 10 mg PO TID PRN (Reason: muscle spasm) Qty: 60 0RF bupropion HCl 150 mg tablet sustained-release 12 hr See Rx Instructions PO .COMPLEX Qty: 270 0RF Rx Instructions: 2 tabs in the AM and one in the PM orally; loratadine 10 MG tablet 10 mg PO DAILY lisinopril 10 MG tablet 10 mg PO DAILY lidocaine [Lidoderm] 5 % adhesive patch,medicated 1 patch topical DAILY PRNQty: 15 0RF Rx Instructions: leave on most painful area for up to 12 hrs Lotrimin AF 2 % aerosol,spray 1 spray topical BID Qty: 150 0RF levothyroxine [Synthroid] 100 mcg Tablet 100 mcg PO DAILY sertraline 25 mg Tablet 25 mg PO DAILY Discharge Instructions Instructions: COVID-19 (Coronavirus Disease 2019) (ED) Additional Instructions: Call your primary care doctor tomorrow to schedule an appointment within the the next three days to follow up on your visit here. Return to the emergency department for new or worsening symptoms including chest pain, difficulty breathing, inability to walk, or if you have any other concerns. Referrals: Leena Berry NP [Primary Care Provider] -
[2023-09-28 17:40] LABS: Abs Immature Grans 0.03 10^3/uL (0.0-0.06); Absolute Basophil Count 0.04 10^3/uL (0.0-0.2); Absolute Eosinophil Count 0.04 10^3/uL (0.0-0.7); Absolute Lymphocyte Count 0.96 10^3/uL (1.2-3.4); Absolute Monocyte Count 0.43 10^3/uL (0.1-0.8); Absolute Neutrophil Count 3.95 10^3/uL (1.2-6.7); Basophils % 0.7; Eosinophils % 0.7; HCT 42.8 % (40.0-50.0); HGB 14.2 g/dL (13.5-17.5); Immature Grans % 0.6; Lymphocytes % 17.6; MCH 28.9 pg (27.0-33.0); MCHC 33.2 % (32.0-36.0); MCV 87 fL (80-95); MPV 9.7 fL (8.0-11.0); Monocytes % 7.9; Neutrophils % 72.5; Platelet Count 233 10^3/uL (130-400); RBC 4.91 10^6/uL (4.36-5.78); RDW 13.9 % (11.8-14.1); RDW-SD 44.3 fL; WBC 5.45 10^3/uL (4.4-10.8)
[2023-09-28 18:22] LABS: Influenza A PCR Negative (Negative); Influenza B PCR Negative (Negative); RSV PCR Negative (Negative)
[2023-09-28 18:24] LABS: COVID-19 PCR Positive (Negative); Source Nasopharynx
[2023-09-28 18:24] LABS: ALT 30 U/L (16-63); AST 24 U/L (15-37); Alkaline Phosphatase 100 U/L (46-116); BUN 12 mg/dL (7-18); Bilirubin, Total 0.4 mg/dL (0.2-1.0); Calcium 8.4 mg/dL (8.5-10.1); Chloride 97 mmol/L (98-107); Glucose 116 mg/dL (74-106); NT-proBNP 39 pg/mL (<300); Potassium 4.7 mmol/L (3.5-5.1); Sodium 133 mmol/L (136-145); Total Protein 6.6 g/dL (6.4-8.2); Troponin I < 50 ng/L (< or =60)
--- NOTE | 2023-09-28 21:13 | NUR.NOTE ---
Nursing Note: Pt passed walking test with walker.
== END 2023-09-28 22:09 | disposition home or self-care (01) ==
PROVIDERS: Emergency Provider Student in an Organized Health Care Education/Training Program; PCP Nurse Practitioner
DX: U07.1 COVID-19 (principal); R00.0 Tachycardia, unspecified; I10 Essential (primary) hypertension; Z11.52 Encounter for screening for COVID-19; Z79.82 Long term (current) use of aspirin; Z79.84 Long term (current) use of oral hypoglycemic drugs; Z87.891 Personal history of nicotine dependence
CPT/HCPCS: 80053; 87637; 93005; 99285; 71045; 72192; 83880; 84484; 85025; 93010; 99284

== ENCOUNTER 2023-11-03 10:37 | Emergency (ER) | payer OTHER, MEDICAID, SELFPAY ==
[2023-11-03 10:39] VITALS: BP 175/100; PULSE 109; RESP 20; TEMP 36.6; O2SAT 97
--- NOTE | 2023-11-03 10:56 | W.ED.GENAD ---
Discharge Plan Disposition Patient Disposition: Home Condition: Stable Discharge Details Clinical Impression: Cellulitis of left leg Primary Care Provider: Leena Berry ED Provider: Lisa Katz Home Meds and New Rx's Prescriptions: New doxycycline hyclate 100 mg tablet 100 mg PO BID 10 Days Qty: 20 0RF Continued diclofenac sodium [Voltaren Arthritis Pain] 1 % gel 2 g topical BID ropinirole 1 mg tablet 1 mg PO QHS Rx Instructions: administer 1-3 hours before bedtime atorvastatin 20 mg tablet 20 mg PO QHS omeprazole 20 mg capsule,delayed release(DR/EC) 20 mg PO DAILY risperidone 0.25 mg tablet 0.25 mg PO DAILY spironolactone 25 mg tablet 25 mg PO DAILY furosemide 20 mg tablet 20 mg PO DAILY naltrexone 50 mg tablet 25 mg PO BID metformin 500 mg tablet extended release 24 hr 1,000 mg PO DAILY aspirin 81 mg tablet,delayed release (DR/EC) 81 mg PO DAILY Qty: 90 3RF bupropion HCl 150 mg tablet sustained-release 12 hr See Rx Instructions PO .COMPLEX Qty: 270 0RF Rx Instructions: 2 tabs in the AM and one in the PM orally; cyclobenzaprine 10 mg tablet See Rx Instructions .ROUTE .COMPLEX Qty: 60 0RF Dose Instruction: TAKE ONE TABLET BY MOUTH THREE TIMES A DAY NEEDED FOR MUSCLE SPASMS Rx Instructions: TAKE ONE TABLET BY MOUTH THREE TIMES A DAY NEEDED FOR MUSCLE SPASMS loratadine 10 MG tablet 10 mg PO DAILY lisinopril 10 MG tablet 10 mg PO DAILY lidocaine [Lidoderm] 5 % adhesive patch,medicated 1 patch topical DAILY PRNQty: 15 0RF Rx Instructions: leave on most painful area for up to 12 hrs levothyroxine [Synthroid] 100 mcg Tablet 100 mcg PO DAILY sertraline 25 mg Tablet 25 mg PO DAILY Discharge Instructions Instructions: Cellulitis (ED) Additional Instructions: Take the Doxycycline twice daily with yogurt or a probiotic. Use the mupirocin antibiotic ointment as directed. Follow up with primary care provider in 3-5 days for a wound recheck. Return to ED sooner if any worsening swelling, spreading redness or concerns. Referrals: Leena Berry, [employer] [Primary Care Provider] - 3 days HPI General Mode of arrival: ambulatory. Date/Time Provider Initiated Documentation: 11/03/23 10:43. Limitations to Documentation: no limitations. Information obtained by: patient, RN notes reviewed and old records reviewed. HPI Narrative: 63 year old male presents to the ED with left lower leg redness, and swelling. Patient reports he has had a diffuse rash for approximately 1 month, he does have some worsening of his left lower ivey area with surrounding erythema and swelling. He does have excoriation with greenish-yellow purulent wound bed noted. Extends down to the top of his foot. He denies any fever chills or bodyaches. He has been applying triamcinolone cream and cortisone cream on to the area for the last couple of weeks. He reports that it has somewhat improved however the redness has started over the last few days. He denies being diabetic however he does take metformin. Other past medical history includes hypothyroidism, anxiety depression, GERD, sleep apnea. Related Data Home Medications Medication Instructions Recorded Confirmed lisinopril 10 mg tablet 10 mg PO DAILY 10/16/12 11/03/23 loratadine 10 mg tablet 10 mg PO DAILY 10/16/12 11/03/23 levothyroxine 100 mcg tablet 100 mcg PO DAILY 09/20/19 11/03/23 (Synthroid) sertraline 25 mg tablet 25 mg PO DAILY 09/20/19 11/03/23 lidocaine 5 % topical patch 1 patch topical DAILY PRN #15 ea 04/04/23 11/03/23 (Lidoderm) atorvastatin 20 mg tablet 20 mg PO QHS 06/30/23 11/03/23 diclofenac sodium 1 % topical gel 2 g topical BID 06/30/23 11/03/23 (Voltaren Arthritis Pain) furosemide 20 mg tablet 20 mg PO DAILY 06/30/23 11/03/23 metformin 500 mg tablet,extended 1,000 mg PO DAILY 06/30/23 11/03/23 release 24 hr naltrexone 50 mg tablet 25 mg PO BID 06/30/23 11/03/23 omeprazole 20 mg capsule,delayed 20 mg PO DAILY 06/30/23 11/03/23 release risperidone 0.25 mg tablet 0.25 mg PO DAILY 06/30/23 11/03/23 ropinirole 1 mg tablet 1 mg PO QHS 06/30/23 11/03/23 spironolactone 25 mg tablet 25 mg PO DAILY 06/30/23 11/03/23 aspirin 81 mg tablet,delayed 81 mg PO DAILY #90 tabs 07/20/23 11/03/23 release bupropion HCl 150 mg tablet,12 hr See Rx Instructions PO .COMPLEX 08/12/23 11/03/23 sustained-release #270 tabs cyclobenzaprine 10 mg tablet See Rx Instructions .Route 10/29/23 11/03/23 .COMPLEX #60 tabs doxycycline hyclate 100 mg tablet 100 mg PO BID 10 days #20 tabs 11/03/23 Previous Rx's Medication Instructions Recorded lidocaine 5 % topical patch 1 patch topical DAILY PRN #15 ea 04/04/23 (Lidoderm) aspirin 81 mg tablet,delayed 81 mg PO DAILY #90 tabs 07/20/23 release bupropion HCl 150 mg tablet,12 hr See Rx Instructions PO .COMPLEX 08/12/23 sustained-release #270 tabs cyclobenzaprine 10 mg tablet See Rx Instructions .Route 10/29/23 .COMPLEX #60 tabs doxycycline hyclate 100 mg tablet 100 mg PO BID 10 days #20 tabs 11/03/23 Allergies Allergy/AdvReac Type Severity Reaction Status Date / Time Penicillins Allergy Severe Skin Rash, Verified 11/03/23 10:43 TONGUE SWELLING Sulfa (Sulfonamide Allergy Intermediate Skin Rash Verified 11/03/23 10:43 Antibiotics) clindamycin Allergy Mild unknown Verified 11/03/23 10:43 oxacillin Allergy Mild unknown Verified 11/03/23 10:43 General Stated Complaint: RashLesion ZANE: 3 Review of Systems Integumentary/Breasts Skin/Breast: Reports as per HPI, Reports non-healing lesions, Reports erythema, Reports rash, Reports skin pain and Reports skin swelling Exam Const General: cooperative Nutritional Appearance: obese Orientation: alert, awake and oriented x3 Skin Rashes: rashes noted (Arms, appears to be healing, left lower leg and foot) Extrem Upper/lower leg/hip images: 1. Excoriated wound with surrounding erythema and swelling, green wound bed 2. Small excoriated wound area with surrounding erythema Course Vital Signs Vital signs: Vital Signs Temperature 36.6 C 11/03/23 10:39 Pulse 109 H 11/03/23 10:39 Respiratory Rate 20 11/03/23 10:39 Blood Pressure 175/100 H 11/03/23 10:39 Pulse Oximetry 97 11/03/23 10:39 Temperature 36.6 C 11/03/23 10:39 Temperature Source Skin 11/03/23 10:39 Pulse 109 H 11/03/23 10:39 Respiratory Rate 20 11/03/23 10:39 Respiratory Effort Normal, Non-Labored 11/03/23 10:43 Blood Pressure 175/100 H 11/03/23 10:39 Blood Pressure Position Sitting 11/03/23 10:39 Pulse Oximetry 97 11/03/23 10:39 Oxygen Delivery Method Room Air 11/03/23 10:39 Oxygen Flow Rate 0 11/03/23 10:39 Pain Level 9 11/03/23 10:39 Lab/Test Results Lab/Test Results: 11/03/23 10:53 Blood Blood Culture - Pending 11/03/23 10:53 Blood Blood Culture - Pending Medical Decision Making 63 year old male presents to the ED with left lower leg redness, and swelling. Patient reports he has had a diffuse rash for approximately 1 month, he does have some worsening of his left lower ivey area with surrounding erythema and swelling. He does have excoriation with greenish-yellow purulent wound bed noted. Extends down to the top of his foot. He denies any fever chills or bodyaches. He has been applying triamcinolone cream and cortisone cream on to the area for the last couple of weeks. He reports that it has somewhat improved however the redness has started over the last few days. He denies being diabetic however he does take metformin. Other past medical history includes hypothyroidism, anxiety depression, GERD, sleep apnea. Workup ordered including CBC CMP lactate, blood cultures x 2, doxycycline IV piggyback due to patient is allergic to penicillin clindamycin and sulfa. X-ray of extremity ordered to rule out subcu emphysema. No leukocytosis, no evidence of subcu emphysema noted on the x-ray. Blood cultures are pending at this time. Patient has received 100 mg of doxycycline IV. Neupro sitting antibiotic ointment also ordered. Will discharge with p.o. doxycycline and mupirocin ointment. Dressing applied by staff occupational therapist and discussed close follow up with patient. This text was generated using [employer] system, please disregard any oddities of phrase or misspellings. Lab Data Lab results reviewed: Yes I reviewed the patient's lab results. Labs: 11/03/23 11:35 Blood Blood Culture - Pending 11/03/23 11:06 Blood Blood Culture - Pending Laboratory Tests Range/Units 11/03/23 11:06 WBC (4.4-10.8) 10^3/uL 9.38 RBC (4.36-5.78) 10^6/uL 4.94 Hgb (13.5-17.5) g/dL 14.5 Hct (40.0-50.0) % 44.6 MCV (80-95) fL 90 MCH (27.0-33.0) pg 29.4 MCHC (32.0-36.0) % 32.5 RDW (11.8-14.1) % 14.6 H Plt Count (130-400) 10^3/uL 403 H MPV (8.0-11.0) fL 9.0 Immature Gran % 0.6 Neutrophils % 64.7 Lymphocytes % 25.9 Monocytes % 7.0 Eosinophils % 1.3 Basophils % 0.5 Nucleated RBC % (0.0-0.3) % 0.0 Absolute Neutrophils (1.2-6.7) 10^3/uL 6.06 Absolute Lymphocytes (1.2-3.4) 10^3/uL 2.43 Absolute Monocytes (0.1-0.8) 10^3/uL 0.66 Absolute Eosinophils (0.0-0.7) 10^3/uL 0.12 Absolute Basophils (0.0-0.2) 10^3/uL 0.05 VBG Lactate (0.6-1.4) mmol/L 1.4 Sodium (136-145) mmol/L 139 Potassium (3.5-5.1) mmol/L 4.0 Chloride (98-107) mmol/L 103 Carbon Dioxide (21.0-32.0) mmol/L 26.9 Anion Gap (3-11) mmol/L 9.1 BUN (7-18) mg/dL 12 Creatinine (0.70-1.30) mg/dL 1.0 Est GFR (CKD-EPI 2020) (mL/min/1.73m2) 84.57 Glucose (74-106) mg/dL 107 H Calcium (8.5-10.1) mg/dL 9.0 Magnesium (1.8-2.4) mg/dL 2.0 Total Bilirubin (0.2-1.0) mg/dL 0.5 AST (15-37) U/L 16 ALT (16-63) U/L 27 Alkaline Phosphatase (46-116) U/L 115 Total Protein (6.4-8.2) g/dL 7.8 Albumin (3.4-5.0) g/dL 3.4 Quality:SDOH Health Related Social Needs: No Data to Display PFSH All Active Problems (Updated 11/03/23 @ 12:25 by Lisa Katz NP) Cellulitis of left leg (Acute) Eczema (Acute) COVID-19 (Acute) Prediabetes (Acute 01/2019) Hyperlipidemia (Acute) Aortic regurgitation (Acute) Left ventricular hypertrophy (Acute) Fatty infiltration of liver (Acute) Cholelithiasis (Acute) Anterior epistaxis (Acute) Screening for colorectal cancer (Acute) Primary osteoarthritis of right knee (Acute) Injected: 06/26/2019 Primary osteoarthritis of left knee (Acute) Injected: 06/26/2019 Hypertension (Chronic) Insomnia (Acute) Obesity (Chronic) Tear of medial meniscus of left knee (Acute 09/26/19) Status post knee arthroscopy -partial medial meniscectomy and plica excision Medical History Superficial thrombosis of leg (04/05/20) Hypothyroidism Anxiety Depression GERD (gastroesophageal reflux disease) Restless leg syndrome Sleep apnea does not use device Surgical History Hx of oral surgery Pt states gum surgery Hx of shoulder surgery L Shoulder History of arthroscopy of right knee Dr. Woodall Colonoscopy - MAC (03/13/16) Social History Smoking/Tobacco Use Status: Former Tobacco Use Quit Date: 08/16/82 Smoking risk assessment performed?: Yes Alcohol Intake: former Drug use: Never Substance use type: does not use Adopted: Yes Caregiver/Support person: Yes Foster care: Yes Housing: apartment Number of Children: 3 number of grandchildren: 8 Communication Needs: None Education Level: high school Do you need help understanding health information?: Never current occupation: unemployed Pets and animals: Yes Pets and animals: dog(s) Sexually active: No Do you think of yourself as: straight/heterosexual Current gender identity: male What is your relationship status?: How often do you talk on the phone with friends or family?: three or more times per week How often do you get together with friends or relatives?: twice per week Do you belong to any clubs or organized social groups?: no Panel score (0-1 are the most socially isolated patients): 1 What type of physical activity do you participate in: walking Duration: 15-30 minutes/day Frequency: daily Seatbelt use: never Helmet use: No Drive intox or ride w/intox drive away driver: No Working smoke detector in home: Yes Carbon monox detector in home: Yes Do you feel safe at home: Yes Do you feel safe in your relationship?: Yes Victim of physical abuse: No Victim of emotional abuse: No Additional Social history: lives alone
[2023-11-03 11:15] LABS: Lactate 1.4 mmol/L (0.6-1.4)
[2023-11-03 11:16] LABS: Abs Immature Grans 0.06 10^3/uL (0.0-0.06); Absolute Basophil Count 0.05 10^3/uL (0.0-0.2); Absolute Eosinophil Count 0.12 10^3/uL (0.0-0.7); Absolute Lymphocyte Count 2.43 10^3/uL (1.2-3.4); Absolute Monocyte Count 0.66 10^3/uL (0.1-0.8); Absolute Neutrophil Count 6.06 10^3/uL (1.2-6.7); Basophils % 0.5; Eosinophils % 1.3; HCT 44.6 % (40.0-50.0); HGB 14.5 g/dL (13.5-17.5); Immature Grans % 0.6; Lymphocytes % 25.9; MCH 29.4 pg (27.0-33.0); MCHC 32.5 % (32.0-36.0); MCV 90 fL (80-95); Neutrophils % 64.7; Platelet Count 403 10^3/uL (130-400); RBC 4.94 10^6/uL (4.36-5.78); RDW 14.6 % (11.8-14.1); RDW-SD 48.2 fL; WBC 9.38 10^3/uL (4.4-10.8)
[2023-11-03] MEDS: DOXYCYCLINE 100 MG in Normal Saline 100 ML IVPB (11:27)
[2023-11-03 11:38] LABS: ALT 27 U/L (16-63); AST 16 U/L (15-37); Albumin 3.4 g/dL (3.4-5.0); Alkaline Phosphatase 115 U/L (46-116); Anion Gap 9.1 mmol/L (3-11); BUN 12 mg/dL (7-18); Bilirubin, Total 0.5 mg/dL (0.2-1.0); CO2 26.9 mmol/L (21.0-32.0); Chloride 103 mmol/L (98-107); Estimated GFR 84.57 (mL/min/1.73m2); Glucose 107 mg/dL (74-106); Sodium 139 mmol/L (136-145); Total Protein 7.8 g/dL (6.4-8.2)
--- NOTE | 2023-11-03 11:55 | DI.RAD_ITS ---
Exam(s) XR TIB/FIB LT EXAM: XR TIB/FIB LT CLINICAL HISTORY: Wound, R/O Emphysema. TECHNIQUE: 2D digital imaging was performed. Two views. COMPARISON: No exams were available for comparison FINDINGS: BONES: No acute fracture is present. No bony destructive lesion is seen. Visualized portion of knee a nd ankle joints are unremarkable. SOFT TISSUE: Mild diffuse edema. No abnormal gas collection. IMPRESSION: No soft tissue emphysema. Mild soft tissue swelling. DATA REPOSITORY: RADIATION DOSE DELIVERED:
[2023-11-03] MEDS: Mupirocin 2% Oint. 22 GM TUBE TP (12:23)
== END 2023-11-03 12:42 | disposition home or self-care (01) ==
PROVIDERS: Emergency Provider Registered Nurse Emergency; PCP Nurse Practitioner
DX: L03.116 Cellulitis of left lower limb (principal); I10 Essential (primary) hypertension; Z79.82 Long term (current) use of aspirin; Z87.891 Personal history of nicotine dependence
CPT/HCPCS: 36415; 80053; 87040; 96365; 99284; 73590; 83605; 83735; 85025

== ENCOUNTER 2023-11-18 16:23 | Outpatient (REF) | payer OTHER, MEDICAID, SELFPAY | END 2023-11-18 16:24 | disposition home or self-care (01) | LOC: LBN 16:23 | PROVIDERS: PCP Nurse Practitioner; Visit Provider Nurse Practitioner Adult Health | DX: L03.116 Cellulitis of left lower limb (principal) | CPT/HCPCS: 87070; 87205 ==

== ENCOUNTER → 2023-12-02 14:06 | Outpatient (BNVA) | payer OTHER, MEDICAID, SELFPAY | PROVIDERS: PCP Nurse Practitioner; Referring Provider Nurse Practitioner; Visit Provider Physical Therapy Assistant | DX: S81.802A Unspecified open wound, left lower leg, initial encounter (principal); X58.XXXA Exposure to other specified factors, initial encounter; L03.116 Cellulitis of left lower limb; I73.9 Peripheral vascular disease, unspecified | CPT/HCPCS: 99213 ==

== ENCOUNTER → 2023-12-08 10:54 | Outpatient (BNVA) | payer OTHER, MEDICAID, SELFPAY | PROVIDERS: PCP Nurse Practitioner; Referring Provider Nurse Practitioner; Visit Provider Physical Therapy Assistant | DX: S81.802D Unspecified open wound, left lower leg, subsequent encounter (principal); X58.XXXD Exposure to other specified factors, subsequent encounter; I73.9 Peripheral vascular disease, unspecified | CPT/HCPCS: 99214 ==

== ENCOUNTER 2024-05-14 12:08 | Emergency (ER) | payer OTHER, MEDICAID, SELFPAY ==
[2024-05-14 12:09] VITALS: BP 123/79; PULSE 112; RESP 16; TEMP 36.8; O2SAT 94
--- NOTE | 2024-05-14 12:19 | W.ED.GENAD ---
Discharge Plan Disposition Patient Disposition: Home Condition: Stable Discharge Details Clinical Impression: Rash Primary Care Provider: Leena Berry ED Provider: Rony Maldonado Home Meds and New Rx's Prescriptions: New prednisone 20 mg tablet See Rx Instructions .ROUTE .COMPLEX Qty: 24 0RF Rx Instructions: Take 60 mg for 4 days, then 40 mg for 4 days, then 20 mg for 4 days. Continued triamcinolone acetonide 0.1 % ointment 1 applic topical BID PRN (Reason: leg scales) Qty: 80 0RF Rx Instructions: To apply thin layer to skin on legs when scaly; USE EMOLLIENT first and shortest duration of steroid triamcinolone acetonide 0.1 % ointment 1 applic topical DAILY Qty: 80 0RF diclofenac sodium [Voltaren Arthritis Pain] 1 % gel 2 g topical BID ropinirole 1 mg tablet 1 mg PO QHS Rx Instructions: administer 1-3 hours before bedtime metformin 500 mg tablet extended release 24 hr 1,000 mg PO DAILY aspirin 81 mg tablet,delayed release (DR/EC) 81 mg PO DAILY Qty: 90 3RF spironolactone 25 mg tablet 25 mg PO DAILY Qty: 90 1RF sertraline 25 mg tablet 25 mg PO DAILY Qty: 90 3RF atorvastatin 20 mg tablet 20 mg PO QHS Qty: 90 3RF furosemide 20 mg tablet 20 mg PO DAILY Qty: 90 0RF omeprazole 20 mg capsule,delayed release(DR/EC) See Rx Instructions .ROUTE .COMPLEX Qty: 90 0RF Dose Instruction: TAKE ONE CAPSULE BY MOUTH EVERY MORNING Rx Instructions: TAKE ONE CAPSULE BY MOUTH EVERY MORNING lisinopril 10 mg tablet 10 mg PO DAILY Qty: 90 3RF risperidone 0.25 mg tablet 0.25 mg PO DAILY Qty: 90 3RF levothyroxine 100 mcg tablet See Rx Instructions .ROUTE .COMPLEX Qty: 90 3RF Dose Instruction: TAKE ONE TABLET BY MOUTH EVERY DAY Rx Instructions: TAKE ONE TABLET BY MOUTH EVERY DAY cyclobenzaprine 10 mg tablet See Rx Instructions .ROUTE .COMPLEX Qty: 60 0RF Dose Instruction: TAKE ONE TABLET BY MOUTH THREE TIMES A DAY NEEDED FOR MUSCLE SPASMS Rx Instructions: TAKE ONE TABLET BY MOUTH THREE TIMES A DAY NEEDED FOR MUSCLE SPASMS naltrexone 50 mg tablet 25 mg PO BID Qty: 90 0RF bupropion HCl 150 mg tablet sustained-release 12 hr See Rx Instructions .ROUTE .COMPLEX Qty: 270 3RF Dose Instruction: TAKE TWO TABLETS BY MOUTH EVERY MORNING AND ONE TABLET IN THE EVENING Rx Instructions: TAKE TWO TABLETS BY MOUTH EVERY MORNING AND ONE TABLET IN THE EVENING loratadine 10 MG tablet 10 mg PO DAILY lidocaine [Lidoderm] 5 % adhesive patch,medicated 1 patch topical DAILY PRNQty: 15 0RF Rx Instructions: leave on most painful area for up to 12 hrs Discharge Instructions Additional Instructions: You can take Claritin or Zyrtec daily and then Benadryl as needed, follow dosing instructions on the packaging Follow-up with your primary care provider within 2 weeks if not improving If you feel more ill, have new symptoms such as high fevers return to the emergency department for reevaluation HPI General Mode of arrival: ambulatory. Date/Time Provider Initiated Documentation: 05/14/24 12:10. Limitations to Documentation: no limitations. Information obtained by: patient. History of Present Illness 63 year old M presents to the emergency department with the chief complaint of itching rash on bilateral arms, described as moderate, and is localized to the left, right and upper extremity. Patient started experiencing this month(s) (2) No relieving factors improve symptom(s), Patient notes denies chest pain, fever/chills and shortness of breath. Related Data Home Medications ?Medication ?Instructions ?Recorded ?Confirmed loratadine 10 mg tablet 10 mg PO DAILY 10/16/12 05/14/24 lidocaine 5 % topical patch 1 patch topical DAILY PRN #15 ea 04/04/23 05/14/24 (Lidoderm) diclofenac sodium 1 % topical gel 2 g topical BID 06/30/23 05/14/24 (Voltaren Arthritis Pain) metformin 500 mg tablet,extended 1,000 mg PO DAILY 06/30/23 05/14/24 release 24 hr ropinirole 1 mg tablet 1 mg PO QHS 06/30/23 05/14/24 aspirin 81 mg tablet,delayed 81 mg PO DAILY #90 tabs 07/20/23 05/14/24 release triamcinolone acetonide 0.1 % 1 applic topical BID PRN leg 11/18/23 05/14/24 topical ointment scales #80 grams spironolactone 25 mg tablet 25 mg PO DAILY #90 tabs 11/22/23 05/14/24 sertraline 25 mg tablet 25 mg PO DAILY #90 tabs 12/27/23 05/14/24 atorvastatin 20 mg tablet 20 mg PO QHS #90 tabs 01/21/24 05/14/24 furosemide 20 mg tablet 20 mg PO DAILY #90 tabs 01/21/24 05/14/24 omeprazole 20 mg capsule,delayed See Rx Instructions .Route 02/08/24 05/14/24 release .COMPLEX #90 caps lisinopril 10 mg tablet 10 mg PO DAILY #90 tabs 02/14/24 05/14/24 levothyroxine 100 mcg tablet See Rx Instructions .Route 02/15/24 05/14/24 .COMPLEX #90 tabs risperidone 0.25 mg tablet 0.25 mg PO DAILY #90 tabs 02/15/24 05/14/24 triamcinolone acetonide 0.1 % 1 applic topical DAILY #80 grams 04/03/24 05/14/24 topical ointment cyclobenzaprine 10 mg tablet See Rx Instructions .Route 04/06/24 05/14/24 .COMPLEX #60 tabs naltrexone 50 mg tablet 25 mg (1/2 x 50 mg) PO BID #90 tabs 04/24/24 05/14/24 bupropion HCl 150 mg tablet,12 hr See Rx Instructions .Route 05/12/24 05/14/24 sustained-release .COMPLEX #270 tabs prednisone 20 mg tablet See Rx Instructions .Route 05/14/24 .COMPLEX #24 tabs Previous Rx's ?Medication ?Instructions ?Recorded lidocaine 5 % topical patch 1 patch topical DAILY PRN #15 ea 04/04/23 (Lidoderm) aspirin 81 mg tablet,delayed 81 mg PO DAILY #90 tabs 07/20/23 release triamcinolone acetonide 0.1 % 1 applic topical BID PRN leg 11/18/23 topical ointment scales #80 grams spironolactone 25 mg tablet 25 mg PO DAILY #90 tabs 11/22/23 sertraline 25 mg tablet 25 mg PO DAILY #90 tabs 12/27/23 atorvastatin 20 mg tablet 20 mg PO QHS #90 tabs 01/21/24 furosemide 20 mg tablet 20 mg PO DAILY #90 tabs 01/21/24 omeprazole 20 mg capsule,delayed See Rx Instructions .Route 02/08/24 release .COMPLEX #90 caps lisinopril 10 mg tablet 10 mg PO DAILY #90 tabs 02/14/24 levothyroxine 100 mcg tablet See Rx Instructions .Route 02/15/24 .COMPLEX #90 tabs risperidone 0.25 mg tablet 0.25 mg PO DAILY #90 tabs 02/15/24 triamcinolone acetonide 0.1 % 1 applic topical DAILY #80 grams 04/03/24 topical ointment cyclobenzaprine 10 mg tablet See Rx Instructions .Route 04/06/24 .COMPLEX #60 tabs naltrexone 50 mg tablet 25 mg (1/2 x 50 mg) PO BID #90 tabs 04/24/24 bupropion HCl 150 mg tablet,12 hr See Rx Instructions .Route 05/12/24 sustained-release .COMPLEX #270 tabs prednisone 20 mg tablet See Rx Instructions .Route 05/14/24 .COMPLEX #24 tabs Allergies Allergy/AdvReac Type Severity Reaction Status Date / Time Penicillins Allergy Severe Skin Rash, Verified 05/14/24 12:12 TONGUE SWELLING Sulfa (Sulfonamide Allergy Intermediate Skin Rash Verified 05/14/24 12:12 Antibiotics) clindamycin Allergy Mild unknown Verified 05/14/24 12:12 oxacillin Allergy Mild unknown Verified 05/14/24 12:12 General Stated Complaint: RashLesion ZANE: 4 Review of Systems All systems reviewed & are unremarkable except as noted in HPI and below Constitutional Constitutional: Denies chills, Denies fever(s) and Denies weakness Cardiovascular Cardiovascular: Denies chest pain and Denies dyspnea Respiratory Respiratory: Denies cough and Denies dyspnea Gastrointestinal Gastrointestinal: Denies abdominal pain, Denies nausea and Denies vomiting Integumentary/Breasts Skin/Breast: Reports rash Neurologic Neurologic: Denies weakness Exam Const General: no acute distress Orientation: alert [facility] Head: normal to inspection Ears: external ears normal General nose exam: external nose normal Mouth: moist mucous membranes Eyes General: appearance normal, both eyes and all related structures Neck Neck: normal visual inspection Resp Effort & Inspection: normal respiratory effort and able to speak in complete sentences Cardio Rate: regular rate Skin General skin exam: erythema Neuro General: patient alert and patient oriented x3 Psych Mental Status: mental status grossly normal Course Vital Signs Vital signs: Vital Signs Temperature 36.8 C 05/14/24 12:09 Pulse 112 H 05/14/24 12:09 Respiratory Rate 16 05/14/24 12:09 Blood Pressure 123/79 05/14/24 12:09 Pulse Oximetry 94 05/14/24 12:09 Temperature 36.8 C 05/14/24 12:09 Pulse 112 H 05/14/24 12:09 Respiratory Rate 16 05/14/24 12:09 Respiratory Effort Normal 05/14/24 12:14 Blood Pressure 123/79 05/14/24 12:09 Pulse Oximetry 94 05/14/24 12:09 Oxygen Delivery Method Room Air 05/14/24 12:09 Oxygen Flow Rate 0 05/14/24 12:09 Pain Level 0 05/14/24 12:09 Medical Decision Making 63-year-old male with a history of peripheral vascular disease, who comes in with 2 months of bilateral arm redness. He says it also is intermittently itchy. He has tried triamcinolone and 10 mg of prednisone daily for a few days without any improvement, has not taken prednisone a month per patient. He denies any fevers, chills, severe pain. He is well-appearing on exam. He has Erythema of both forearms that is uniform with few small less than 1 cm blisters. There is no tenderness, no severe warmth. He has intact sensation and pulses. Appearance does seem consistent most likely with dermatitis and suspect could be contact dermatitis. Will provide a short course of prednisone at higher dose, he will follow-up with his PCP and return precautions given. There is no findings on exam to suggest entities such as cellulitis or necrotizing fasciitis, and this would be rare to happen in both arms. He has no mucous membrane lesions to suggest Logan-Jamie's or TEN Differential Diagnosis Differential Diagnosis: Eczema, dermatitis, contact dermatitis Quality:SDOH Health Related Social Needs: No Data to Display [facility] All Active Problems (Updated 05/14/24 @ 12:20 by Rony Maldonado MD) Rash (Acute) Peripheral vascular disease, unspecified (Chronic) Wound of left lower extremity (Acute) Eczema (Acute) COVID-19 (Acute) Prediabetes (Acute 01/2019) Hyperlipidemia (Acute) Aortic regurgitation (Acute) Left ventricular hypertrophy (Acute) Fatty infiltration of liver (Acute) Cholelithiasis (Acute) Anterior epistaxis (Acute) Screening for colorectal cancer (Acute) Primary osteoarthritis of right knee (Acute) Injected: 06/26/2019 Primary osteoarthritis of left knee (Acute) Injected: 06/26/2019 Hypertension (Chronic) Insomnia (Acute) Obesity (Chronic) Tear of medial meniscus of left knee (Acute 09/26/19) Status post knee arthroscopy -partial medial meniscectomy and plica excision Medical History Superficial thrombosis of leg (04/05/20) Hypothyroidism Anxiety Depression GERD (gastroesophageal reflux disease) Restless leg syndrome Sleep apnea does not use device Surgical History Hx of oral surgery Pt states gum surgery Hx of shoulder surgery L Shoulder History of arthroscopy of right knee Dr. Talisha AREVALO (03/13/16) Social History Smoking/Tobacco Use Status: Former Tobacco Use Quit Date: 08/16/82 Smoking risk assessment performed?: Yes Alcohol Intake: former Drug use: Never Substance use type: does not use Adopted: Yes Caregiver/Support person: Yes Foster care: Yes Housing: apartment Number of Children: 3 number of grandchildren: 8 Communication Needs: None Education Level: high school Do you need help understanding health information?: Never current occupation: unemployed Pets and animals: Yes Pets and animals: dog(s) Sexually active: No Do you think of yourself as: straight/heterosexual Current gender identity: male What is your relationship status?: How often do you talk on the phone with friends or family?: three or more times per week How often do you get together with friends or relatives?: twice per week Do you belong to any clubs or organized social groups?: no Panel score (0-1 are the most socially isolated patients): 1 What type of physical activity do you participate in: walking Duration: 15-30 minutes/day Frequency: daily Seatbelt use: never Helmet use: No Drive intox or ride w/intox clamp truck driver: No Working smoke detector in home: Yes Carbon monox detector in home: Yes Do you feel safe at home: Yes Do you feel safe in your relationship?: Yes Victim of physical abuse: No Victim of emotional abuse: No Additional Social history: lives alone
[2024-05-14 12:36] VITALS: BP 123/79; PULSE 90; RESP 16; TEMP 36.8; O2SAT 94
--- OUTSIDE RECORDS SUMMARY | 2024-05-14 15:13 | XMS_ITS | Referral Summary ---
Author Organization [facility] Address [address] [place] [address] Care Team Providers Care Marine Design Engineer Name Role Phone Erlinda Serrano MD Primary Care Provider [phone] Social History Tobacco Use Types Packs/Day Years Used Date Smoking Tobacco: Never Assessed Interpersonal Safety Answer Date Record ed Physically Hurt Never 03/17/2020 Verbally Threaten Not on file 03/17/2020 Sex and Gender Information Value Date Recorded Sex Assigned at Not on file Gender Identity Not on file Sexual Orientation Not on file Plan of Treatment Not on file Care Teams Marine Design Engineer Relationship Specialty Start Date End Date Erlinda Serrano MD [address] [place] [phone] PCP - General 02/24/11
--- OUTSIDE RECORDS SUMMARY | 2024-05-14 15:13 | XMS_ITS | Encounter Summary ---
Author Organization [facility] Address [address] [place] [address] Care Team Providers Care Cinder Pitman Name Role Phone Unavailable Primary Care Provider Unavailabl e Encounter Details Date Type Department Care Team (Late st Contact Info) Description 02/20/2011 Results Only [facility] Laboratory Services - [facility] ([facility]) [address], [place] [address] Naresh Aguirre MD [address] [place] [address] Social History Tobacco Use Types Packs/Day Years Used Date Smoking Tobacco: Never Assessed Sex and Gender Information Value Date Recorded Sex Assigned at Not on file Gender Identity Not on file Sexual Orientation Not on file documented as of this encounter Plan of Treatment Not on file documented as of this encounter Procedures Procedure Name Priority Date/Time Associated Diagnosis Comments SURGICAL PATHOLOGY Routine 02/20/2011 0:00 EDT documented in this encounter Results * SURGICAL PATHOLOGY (02/20/2011 0:00 EDT) Pathology Report: SURGICAL PATHOLOGY REPORT ? Reports generated via electronic interface contain original data; ? however they are lacking the format of the original report. ? Caution should be taken when reading/interpreti ng unformatted reports. ? Name: ? COUNTER, MILIND G ? Accession #: ? [id number] ? : ? 1960 (Age: 50) ??M ? Collect Date: ? 02/20/2011 ? Location: ? [facility] ? Receive Date: ? 02/21/2011 ? Provider: NARESH AGUIRRE MD ? Copy to: ANTOLIN SALAZAR MD ? Final Pathologic Diagnosis: ? A. ?Colon, sigmoid, polyps, biopsies: ? 1. ?Hyperplastic polyps. ? B. ?Rectum, polyps, biopsies: ? 1. ?Hyperplastic polyps. ? Document reviewed and electronically signed by: ? JASON FABIAN MD ? Report ??Date: 02/25/2011 17:43 ? By the signature above, the attending physician certifies that he/she has ? personally conducted a gross and/or microscopic examination of the described ? specimens and rendered or confirmed the above diagnosis. ? Specimen(s) Received: ? A. ?Sigmoid polyps x2 (#1) ? B. ? Rectal polyps x2 (#2) ? Clinical History: ? Colorectal cancer screening ? Gross Description: ? Received in formalin labelled Counter, Milind and 1 ??sigmoid polyps x2 ?? are two hernández-pink irregular soft tissue fragments measuring 0.4 x 0.3 x 0.2 cm ?? and 0.6 x 0.4 x 0.3 cm. ??The specimen is entirely submitted as (A). ? Received in formalin labelled Counter, Milind and 2 ??rectal polyp x2 are two hernández-white irregular soft tissue fragments measuring 0.3 x 0.2 x 0.1 cm and 0.4 x 0.3 x 0.3 cm. ??The specimen is entirely submitted as (B). ??(A. Burton)/mms ? End of Report ? [facility] 02/20/2011 02/21/2011 11: 29 EDT Naresh Aguirre MD PATHOLOGY ORDERABLES [facility] [address] [place] [address] documented in this encounter Visit Diagnoses Not on filedocumented in this encounter
--- OUTSIDE RECORDS SUMMARY | 2024-05-14 15:13 | XMS_ITS | Clinical Summary ---
Author Organization [facility] Address [facility] [place] [address] Care Team Providers Care Cane Feeder Name Role Phone KristiLeena APRN Primary Care Provider Allergies Active Allergy Reactions Criticality Noted Date Comments Clindamycin Rash High 08/31/2013 Oxacillin 08/31/2013 Penicillins 08/31/2013 Sulfa (Sulfonamide Antibiotics) 08/16 Medications Medication Sig Dispensed Refills Start Date End Date Status levothyroxine (SYNTHROID) 75 mcg tablet Take 75 mcg by mouth daily. Active buPROPion (WELLBUTRIN) 100 mg tablet Take 150 mg by mouth 2 times daily. Take 2 tablets in the morning and one tablet in the evening Active rOPINIRole (REQUIP) 1 mg tablet Take 1 mg by mouth every evening. Active omeprazole (PRILOSEC) 20 mg capsule Take 20 mg by mouth daily. Active loratadine (CLARITIN) 10 mg tablet Take 10 mg by mouth daily. Active lisinopril (PRINIVIL;ZESTRIL) 10 mg tablet Take 10 mg by mouth daily. Active hydrochlorothiazide (HYDRODIURIL) 25 mg tablet Take 25 mg by mouth daily. Active aspirin 81 mg EC tablet Take 81 mg by mouth daily. Active triamcinolone (KENALOG) 0.1 % cream Apply topically 2 times daily. Active risperiDONE (RISPERDAL) 2 mg Tablet Take 2 mg by mouth 2 times daily. Active zaleplon (SONATA) 10 mg Capsule Take 10 mg by mouth nightly. Active Social History Tobacco Use Types Packs/Day Years Used Date Smoking Tobacco: Former Sex and Gender Information Value Date Recorded Sex Assigned at Not on file Gender Identity Not on file Sexual Orientation Not on file Last Filed Vital Signs Vital Sign Reading Time Taken Comments Blood Pressure 142/70 12/19/2015 5:00 PM EDT Pulse 90 12/19/2015 5:00 PM EDT Temperature 37.2 ??C (99 ??F) 12/19/2015 3:40 PM EDT Respiratory Rate 16 12/19/2015 5:00 PM EDT Oxygen Saturation 95% 12/19/2015 5:00 PM EDT Inhaled Oxygen Concentration - - Weight 137.4 kg (303 lb) 08/31/2013 3:31 PM EST Height 172.7 cm (5' 8) 08/31/2013 3:31 PM EST Body Mass Index 46.07 08/31/2013 3:31 PM EST Plan of Treatment Health Maintenance Due Date Last Done Comments CT Colonography 1960 Colonoscopy 1960 Colorectal Cancer Screening 1960 FIT DNA 1960 FIT 1960 Sigmoidoscopy (10 year) with FIT yearly 1960 Sigmoidoscopy 1960 HIV screen 1978 Hepatitis C Screening 1978 Lipid Screening 1978 Tetanus/Diphtheria/Pertussis Vaccines (1 - Tdap) 10/29 Zoster vaccine (1 of 2) 2010 Advance Directive 10/30/2015 Covid-19 Vaccine (1 - season) 2024 Influenza (Flu) vaccine (1 o f 1 - Influenza standard series) 04/16/2024 Care Teams Cane Feeder Relationship Specialty Start Date End Date Leena Berry, LILLIE [address] [place] [address] PCP - General Internal Medicine 12/13/23
--- OUTSIDE RECORDS SUMMARY | 2024-05-14 15:13 | XMS_ITS | Encounter Summary ---
[place] [address] Care Team Providers Care Aviation Safety Inspector Name Role Phone Erlinda Serrano MD Primary Care Provider [phone] Reason for Referral * Consultation (Routine) - Closed Specialty Diagnoses / Procedures Referred By Guerita langston Referred To Contact Vascular Surgery Diagnoses Wound of left lower extremity, initial encounter [facility] [address] [place] [address] [place] [address] [facility] Vascular Surg [address] [place] [address] Referral ID Status Reason Start Date Expiration Date V isits Requested Visits Authorized [id number] Closed Consult, Test & Treat PCP Updated and/or Approved 12/06/2023 12/05/2024 1 1 Encounter Details Date Type Department Care Team (Late st Contact Info) Description 12/06/2023 Transcribe Orders eDH Incoming Referrals [phone] [place] [address] Wound of left lower extremity, initial encounter Social History Tobacco Use Types Packs/Day Years Used Date Smoking Tobacco: Former Sex and Gender Information Value Date Recorded Sex Assigned at Not on file Gender Identity Not on file Sexual Orientation Not on file documented as of this encounter Plan of Treatment Scheduled Referrals Name Type Priority Associated Diagnoses Orde r Schedule Referral to Vascular Surgery Outpatient Referral Routine Wound of left lower extremity, initial encounter Ordered: 12/06/2023 documented as of this encounter Visit Diagnoses Diagnosis Wound of left lower extremity, initial encounter documented in this encounter Care Teams Aviation Safety Inspector Relationship Specialty Start Date End Date Erlinda Serrano MD [address] [place] [address] PCP - General 08/29/13 12/12/23 documented as of this encounter
--- OUTSIDE RECORDS SUMMARY | 2024-05-14 15:13 | XMS_ITS | Encounter Summary ---
Author Organization [facility] [place] [address] Care Team Providers Care Apartment Maintenance Supervisor Name Role Phone Erlinda Serrano MD Primary Care Provider [phone] Reason for Referral * Diagnostic Test (Routine) - Pending Review Specialty Diagnoses / Procedures Referred By Guerita t Referred To Contact Diagnoses Venous insufficiency of leg Procedures LE Unilateral Valvular Incomp Study Vickie Gamble APRN [facility] [place] [address] [facility] [address] [place] [id number] Referral ID Status Reason Start Date Expiration Date Visits Requested Visits Authorized [id number] Pending Review Specialty Service Requested 12/08/2023 12/07/2024 1 1 Encounter Details Date Type Department Care Team (Late st Contact Info) Description 12/08/2023 Orders Only Vascular Surgery at [address] [phone] Vickie Gambel APRN [facility] [place] [address] Venous insufficiency of leg Social History Tobacco Use Types Packs/Day Years Used Date Smoking Tobacco: Former Sex and Gender Information Value Date Recorded Sex Assigned at Not on file Gender Identity Not on file Sexual Orientation Not on file documented as of this encounter Plan of Treatment Not on file documented as of this encounter Visit Diagnoses Diagnosis Venous insufficiency of leg Unspecified venous (peripheral) insufficiency documented in this encounter Care Teams Apartment Maintenance Supervisor Relationship Specialty Start Date End Date Erlinda Serrano MD [facility] [address] [place] [address] PCP - General 08/29/13 12/12/23 documented as of this encounter
--- OUTSIDE RECORDS SUMMARY | 2024-05-14 15:13 | XMS_ITS | Encounter Summary ---
[place] [address] Care Team Providers Care Soap Maker Name Role Phone Erlinda Serrano MD Primary Care Provider [phone] Reason for Visit * Reason Comments Leg Pain R knee thigh area Encounter Details Date Type Department Care Team (Late st Contact Info) Description 12/19/2015 4:02 PM EDT - 12/19/2015 5:39 PM EDT [place] [address] Sprain of medial collateral ligament of right knee, initial encounter Discharge Disposition: Home Social History Tobacco Use Types Packs/Day Years Used Date Smoking Tobacco: Former Sex and Gender Information Value Date Recorded Sex Assigned at Not on file Gender Identity Not on file Sexual Orientation Not on file documented as of this encounter Last Filed Vital Signs Vital Sign Reading Time Taken Comments Blood Pressure 142/70 12/19/2015 5:00 PM EDT Pulse 90 12/19/2015 5:00 PM EDT Temperature 37.2 ??C (99 ??F) 12/19/2015 3:40 PM EDT Respiratory Rate 16 12/19/2015 5:00 PM EDT Oxygen Saturation 95% 12/19/2015 5:00 PM EDT Inhaled Oxygen Concentration - - Weight - - Height - - Body Mass Index - - documented in this encounter Discharge Instructions * Discharge Instructions* Prashant Glaser PA - 12/19/2015 5:09 PM EDT Please alternate ibuprofen and Tylenol as needed for pain control. Please wear your hinged knee brace when weightbearing. You may remove to ice, bathe, and sleep. Use ice to the affected areas helpful. Reevaluate with any new or worsening symptoms. * Attachments The following attachments cannot be sent through Care Everywhere. * KNEE SPRAIN (POLISH) documented in this encounter Medications at Time of Discharge Medication Sig Dispensed Refills Start Date End Date risperiDONE (RISPERDAL) 2 mg Tablet Take 2 mg by mouth 2 times daily. zaleplon (SONATA) 10 mg Capsule Take 10 mg by mouth nightly. levothyroxine (SYNTHROID) 75 mcg tablet Take 75 mcg by mouth daily. buPROPion (WELLBUTRIN) 100 mg tablet Take 150 mg by mouth 2 times daily. Take 2 tablets in the morning and one tablet in the evening rOPINIRole (REQUIP) 1 mg tablet Take 1 mg by mouth every evening. omeprazole (PRILOSEC) 20 mg capsule Take 20 mg by mouth daily. loratadine (CLARITIN) 10 mg tablet Take 10 mg by mouth daily. lisinopril (PRINIVIL;ZESTRIL) 10 mg tablet Take 10 mg by mouth daily. hydrochlorothiazide (HYDRODIURIL) 25 mg tablet Take 25 mg by mouth daily. aspirin 81 mg EC tablet Take 81 mg by mouth daily. triamcinolone (KENALOG) 0.1 % cream Apply topically 2 times daily. documented as of this encounter ED Notes * Renato Guy RN - 12/19/2015 5:34 PM EDT Pt fit with xxl right knee brace. Ambulatory without difficulty for dc. Pain tolerable. * Prashant Glaser PA - 12/19/2015 4:14 PM EDT Chief Complaint Patient presents with ??? Leg Pain R knee thigh area The history is provided by the patient. 55-year-old male comes in today for evaluation of right knee pain. The patient says the knee pain is underneath the patella. He also notices it particularly along the medial aspect when he is weightbearing. He denies any locking sensation but does say that it feels oftentimes as if his knee will give out on him. He does have some occasional numbness and tingling he says in the anterior aspect of the thigh just above the knee. He denies any weakness. He has been using anti-inflammatory is with minimal improvement. He says the pain has been present since he sprained the knee crossing his legsabout 5 weeks ago. He says he was unable to lift his right leg over his left so he reached down andgrabbed the ankle and pulled his leg up and felt a popping sensation along the medial aspect of theknee. He shouldn't has not been evaluated prior to today. Allergies Allergen Reactions ??? Clindamycin Rash ??? Oxacillin ??? Pcn [Penicillins] ??? Sulfa (Sulfonamide Antibiotics) Review of Systems Constitutional: Negative for fever. Gastrointestinal: Negative for nausea and vomiting. Musculoskeletal: Positive for arthralgias (right knee) and gait problem (occasional limp due to knee pain). Negative for neck pain. Skin: Negative for rash and wound. Neurological: Positive for numbness (occasional minor in the anterior area just above the knee). Negative for weakness. Physical Exam Constitutional: He is oriented to person, place, and time. He appears well- developed and well-nourished. HENT: Head: Normocephalic and atraumatic. Neck: Normal range of motion. Neck supple. Musculoskeletal: Right hip: Normal. Right knee: He exhibits normal range of motion, no swelling, no effusion, no ecchymosis, no laceration, no erythema, normal alignment, no LCL laxity, no bony tenderness and no MCL laxity. Abnormal meniscus: + mcmurrays medial aspect. Tenderness found. Medial joint line and MCL tenderness noted. No patellar tendon tenderness noted. Right ankle: Normal. Achilles tendon normal. Neurological: He is alert and oriented to person, place, and time. Skin: Skin is warm and dry. Psychiatric: He has a normal mood and affect. His behavior is normal. Nursing note and vitals reviewed. Xray: Independent review of x-ray by myself demonstrates no acute fractures or effusion. Radiology reading is reviewed and is:FINDINGS: ?? No acute fracture or dislocation. No knee effusion. No soft tissue swelling. ?? Mild osteoarthropathy, characterized by marginal osteophyte formation. ?? IMPRESSION IMPRESSION: ?? No acute osseous injury. Procedures MDM ED Course: Patient was evaluated as above. X-rays were obtained and reviewed. He has tenderness along the medial joint line with a little bit tenderness over the MCL and a positive Glendy's on the medial aspect. The patient was placed in a hinged knee brace to assist his ambulation. He will be discharged home to use anti-inflammatory's and alternate Tylenol and ibuprofen for pain. I encouraged him to follow up with his primary care physician in 7-10 days for reevaluation sooner with any worsening symptoms. Prashant Glaser PA 12/19/15 1719 documented in this encounter Miscellaneous Notes * ED Triage - Giselle Benitez RN - 12/19/2015 3:45 PM EDT Pt sts he has been having medial R knee pain for about a month prior to spraining his knee. Pt sts he also has an area of numbness above knee in mid point are of thigh for several months. Pt denies any trauma prior to sprain to area. Unable to assess pedal pulse or visualize area sensory and motor intact cap refill< 10 sec. Pt is PWD no acute distress. documented in this encounter Plan of Treatment Not on file documented as of this encounter Procedures Procedure Name Priority Date/Time Associated Diagnosis Comments XR KNEE DIAGNOSTIC 1 OR 2 VIEW RIGHT STAT 12/19/2015 5:01 PM EDT documented in this encounter Results * XR Knee diagnostic 1 or 2 View Right (12/19/2015 5:01 PM EDT) Anatomical Region Laterality Modality Knee Right Digital Radiogra phy Impressions 12/19/2015 5:20 PM EDT IMPRESSION: No acute osseous injury. Mild medial femorotibial joint space narrowing. Diffuse small osteophytes. I have personally reviewed the image(s) and the residents interpretation and agree with the findings, Jasmin Tabor at 12/19/2015 5:20 PM Narrative 12/19/2015 5:20 PM EDT EXAMINATION: XR KNEE DIAGNOSTIC 1 OR 2 VIEW RIGHT CLINICAL HISTORY: medial joint line pain TECHNIQUE: AP and lateral radiographs of the right knee COMPARISON: None FINDINGS: No acute fracture or dislocation. No knee effusion. No soft tissue swelling. Mild osteoarthropathy, characterized by marginal osteophyte formation and mild medial femorotibial joint space narrowing. Procedure Note Jasmin Grant MD - 12/19/2015 EXAMINATION: XR KNEE DIAGNOSTIC 1 OR 2 VIEW RIGHT CLINICAL HISTORY: medial joint line pain TECHNIQUE: AP and lateral radiographs of the right knee COMPARISON: None FINDINGS: No acute fracture or dislocation. No knee effusion. No soft tissueswelling. Mild osteoarthropathy, characterized by marginal osteophyte formation andmild medial femorotibial joint space narrowing. IMPRESSION IMPRESSION: No acute osseous injury. Mild medial femorotibial joint space narrowing.Diffuse small osteophytes. I have personally reviewed the image(s) and the residents interpretationand agree with the findings, Jasmin Tabor at 12/19/2015 5:20 PM Riki Garay MD IMG DX ORDERABLES documented in this encounter Visit Diagnoses Diagnosis Sprain of medial collateral ligament of right knee, initial encounter documented in this encounter Care Teams Soap Maker Relationship Specialty Start Date End Date Erlinda Serrano MD [facility] [address] [place] [address] PCP - General 08/29/13 12/12/23 documented as of this encounter
--- OUTSIDE RECORDS SUMMARY | 2024-05-14 15:13 | XMS_ITS | Encounter Summary ---
Author Organization [facility] [place] [address] Care Team Providers Care Anesthesiology Physician Name Role Phone Erlinda Serrano MD Primary Care Provider Reason for Visit * Reason Comments Establish Care Encounter Details Date Type Department Care Team (Late st Contact Info) Description 08/31/2013 3:20 PM EST Office [place] [address] Kirsten Heredia MD [facility] [place] [address] Bleeding from varicose veins of lower extremity, right (Primary Dx) Discharge Disposition: Home Social History Tobacco Use Types Packs/Day Years Used Date Smoking Tobacco: Former Sex and Gender Information Value Date Recorded Sex Assigned at Not on file Gender Identity Not on file Sexual Orientation Not on file documented as of this encounter Last Filed Vital Signs Vital Sign Reading Time Taken Comments Blood Pressure 129/80 08/31/2013 3:31 PM EST Pulse 95 08/31/2013 3:31 PM EST Temperature - - Respiratory Rate - - Oxygen Saturation - - Inhaled Oxygen Concentration - - Weight 137.4 kg (303 lb) 08/31/2013 3:31 PM EST Height 172.7 cm (5' 8) 08/31/2013 3:31 PM EST Body Mass Index 46.07 08/31/2013 3:31 PM EST documented in this encounter Progress Notes * Kirsten Heredia MD - 08/31/2013 3:50 PM EST Presents for discussion of multiple episodes of bleeding varicosities as requested by Dr. Serrano Mr. Jade notes that he has had varicose veins for many years. He notes that he does have some leg aching and swelling at the end of the day. Over the last year he has had several episodes of bleeding varicosities for his right ankle varicose veins. Those have required cautery and stitching in the ER. He would like to determine if there is a way to avoid these ER visit and bleeding episodes. Review of Systems Constitutional: Negative. HENT: Negative. Eyes: Negative. Respiratory: Negative. Cardiovascular: Negative. Gastrointestinal: Negative. Genitourinary: Negative. Musculoskeletal: Negative. Skin: Negative. Neurological: Negative. Physical Exam Constitutional: She appears well-developed and well-nourished. HENT: Head: Normocephalic and atraumatic. Eyes: EOM are normal. Pupils are equal, round, and reactive to light. Neck: Normal range of motion. Neck supple. Cardiovascular: Normal rate and regular rhythm. Pulses: Carotid pulses are 2+ on the right side, and 2+ on the left side. Radial pulses are 2+ on the right side, and 2+ on the left side. Femoral pulses are 2+ on the right side, and 2+ on the left side. Popliteal pulses are 2 on the right side, and 2+ on the left side. Dorsalis pedis pulses are 2 on the right side, and 1+ on the left side. Posterior tibial pulses are 2 on the right side, and 1+ on the left side. Pulmonary/Chest: Effort normal and breath sounds normal. Abdominal: Soft. Bowel sounds are normal. Musculoskeletal: Normal range of motion. Right ankle with areas of bulbbling 2mm varicosities areas of scarring noted where stiches were placed. Mild lipodermatosclerosis noted bilaterally Under sterile conditions foam sclerotherapy of areas of previous bleeding and areas of bubbling varicosities without complications or issues. Patient tolerated the procedure well A/P: Due to multiple episodes of bleeding varicosities a decision was made that sclerotherapy to the bleeding varicosities was medically necessary. One syringe used with good results. Keep bandage onovernight, SHAYNA wrap for one week. Follow up PRN. documented in this encounter Plan of Treatment Not on file documented as of this encounter Visit Diagnoses Diagnosis Bleeding from varicose veins of lower extremity, right- Primary documented in this encounter Care Teams Anesthesiology Physician Relationship Specialty Start Date End Date Erlinda Serrano MD [address] [place] [address] PCP - General 08/29/13 12/12/23 documented as of this encounter
--- OUTSIDE RECORDS SUMMARY | 2024-05-14 15:13 | XMS_ITS | Encounter Summary ---
Author Organization [facility] Address [address] [place] [address] Care Team Providers Care Quilt Maker Name Role Phone Erlinda Serrano MD Primary Care Provider [phone] Encounter Details Date Type Department Care Team (Late st Contact Info) Description 10/23/2021 Lab Requisition [facility] Pathology & Laboratory Medicine - [facility] [address] [place], [place] [id number] Outr Resulting Lab, Provider Social History Tobacco Use Types Packs/Day Years [...] Procedure Name Priority Date/Time Associated Diagnosis Comments HIV 1/2 ANTIGEN AND ANTIBODY, 4TH GENERATION Routine 10/23/2021 11:06 EST documented in this encounter Results * HIV 1/2 ANTIGEN AND ANTIBODY, 4TH GENERATION (10/23/2021 11:06 EST) HIV 1 and 2 Antibody/p24 Antigen, 4th Generation Negative Negative 10/24/2021 10:[address] [facility] Comment:If acute HIV-1 infec tion is suspected in a high risk patient, submit plasma specimen for HIV-1 RNA quantitation test. Blood VENOUS BLOOD / Unknown 10/23/2021 11:06 EST 10/23/2021 21:13 EST Narrative [facility] - 10/24/2021 10:27 EST Fourth Generation assay performed on the Siemens [employer] XPT. Provider Outr Resulting Lab IMMUNOLOGY A ND SEROLOGY ORDERABLES Performing Organization Address City/State/[facility] Co de Phone Number [facility] [address] [place] [address] documented in this encounter Visit Diagnoses Not on filedocumented in this encounter Care Teams Quilt Maker Relationship Specialty Start Date End Date Erlinda Serrano MD [address] [place] [phone] PCP - General 02/24/11 documented as of this encounter
--- OUTSIDE RECORDS SUMMARY | 2024-05-14 15:13 | XMS_ITS | Encounter Summary ---
Author Organization [facility] Address [address] [place] [address] Care Team Providers Care Infusion Therapy Nurse Name Role Phone Unavailable Primary Care Provider Unavailabl e Encounter Details Date Type Department Care Team (Late st Contact Info) Description 03/25/2004 Results Only [facility] - [facility] [address] [place] [address] Tiny Balderrama MD [address] [place] [phone] Social History Tobacco Use Types Packs/Day Years Used Date Smoking Tobacco: Never Assessed Sex and Gender Information Value Date Recorded Sex Assigned at Not on file Gender Identity Not on file Sexual Orientation Not on file documented as of this encounter Plan of Treatment Not on file documented as of this encounter Procedures Procedure Name Priority Date/Time Associated Diagnosis Comments SURGICAL PATHOLOGY Routine 03/25/2004 0:00 EDT documented in this encounter Results * SURGICAL PATHOLOGY (03/25/2004 0:00 EDT) Pathology Report: SURGICAL PATHOLOGY REPORT Reports generated via electronic interface contain original data; however they are lacking the format of the original report. Caution should be taken when reading/interpreting unformatted reports. Name: ? MILIND JOHN ? Accession #: ? [id number] ? : ? 1960 (Age: 43) ??M ? Collect Date: ? 03/25/2004 ? Location: ? [facility] ? Receive Date: ? 03/26/2004 ? Provider: TINY BALDERRAMA MD Copy to: ANTOLIN SALAZAR MD ? Final Pathologic Diagnosis: ? 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 ??See comment. Comment: ? Deeper sections of the biopsy have been examined. ??The case has been reviewed at intradepartmental consultation conference. (Dr. Guevara)/rosi Document reviewed and electronically signed by: BRUNA GUEVARA MD Report ??Date: 04/01/2004 10:36 By the signature above, the attending physician certifies that he/she has personally conducted a gross and/or microscopic examination of the described specimens and rendered or confirmed the above diagnosis. Specimen(s) Received: ? Mass left index finger Clinical History: ? Mass left index finger Gross Description: ? Received in formalin labelled Counter and mass left index finger is an irregular, 1.2 x 0.7 x 0.3 cm, white-pink, fibromembranous portion of tissue with a smooth, glistening surface and opposing scabrous surface. ??The specimen is inked, trisected, and submitted in its entirety in one cassette. ??(Devin Paul)/kaog End of Report [facility] 03/25/2004 03/26/2004 15: 08 EDT Tiny Balderrama MD PATHOLOGY ORDERABLES [facility] [address] [place] [address] documented in this encounter Visit Diagnoses Not on filedocumented in this encounter
--- OUTSIDE RECORDS SUMMARY | 2024-05-14 15:13 | XMS_ITS | Clinical Summary ---
Author Organization [facility] Address [address] [place] [address] Care Team Providers Care Birthing Nurse Name Role Phone Erlinda Serrano MD Primary Care Provider [phone] Social History Tobacco Use Types Packs/Day Years Used Date Smoking Tobacco: Never Assessed Interpersonal Safety Answer Date Record ed Physically Hurt Never 03/17/2020 Verbally Threaten Not on file 03/17/2020 Sex and Gender Information Value Date Recorded Sex Assigned at Not on file Gender Identity Not on file Sexual Orientation Not on file Plan of Treatment Health Maintenance Due Date Last Done Comments Hepatitis C Screen 1960 RSV Immunization ( o r 60+ Years) (1 - 1-dose 60+ series) 2020 COVID-19 Vaccine (2022- season) 2023 Care Teams Birthing Nurse Relationship Specialty Start Date End Date Erlinda Serrano MD [address] [facility] [address] [place] [phone] PCP - General 02/24/11
== END 2024-05-14 12:36 | disposition home or self-care (01) ==
LOC: ER 15:10
PROVIDERS: Emergency Provider Emergency Medicine; PCP Nurse Practitioner
DX: R21 Rash and other nonspecific skin eruption (principal)
CPT/HCPCS: 99283

== ENCOUNTER 2024-11-01 13:53 | Inpatient (IN) | payer MEDICARE, MEDICAID, SELFPAY ==
[2024-11-01] VITALS (46 sets, daily range): BP systolic 91–143; BP diastolic 44–80; PULSE 91–111; RESP 14–32; TEMP 37.1–38; O2SAT 89–96
--- NOTE | 2024-11-01 13:45 | RT.EKG_ITS ---
APPROVED REPORT Exam: Resting ECG Reason for Exam: syncope Patient Location: E HR:109 bpm ECG Measurements Heart Rate 109 AXIS OK 167 P 58 QRSd 81 QRS 21 QT 306 T 88 QTc 413 Conclusion Sinus tachycardia, rate 109 No interval abnormalities No STEMI No significant changes from priors
--- NOTE | 2024-11-01 14:15 | DI.CT_ITS ---
Exam(s) CT HEAD WO EXAM: CT HEAD WO CLINICAL HISTORY: fall, ?LOC. TECHNIQUE: Imaging Protocol: Axial computed tomography images with coronal and sagittal reformatted images were created and reviewed COMPARISON: No exams were available for comparison FINDINGS: Ventricles and Extra axial spaces: Normal in size and morphology for the patient's age. There is a ca lcified extra-axial mass along the right parietal bone measuring 3.0 AP by 0.9 transverse. This find ing is suggestive of a calcified meningioma. Hemorrhage: None. Cerebral parenchyma: There are areas of decreased attenuation in the white matter likely reflecting c hronic microvascular ischemic disease. There is no acute mass effect or midline shift. Midline shift: None. Brainstem/Cerebellum: Normal. Calvarium: Normal. Visualized Paranasal sinuses/Mastoids: Mild mucosal thickening is seen in the visualized paranasal si nuses. No air-fluid levels are seen. The mastoid air cells are clear. Soft Tissues: Unremarkable. IMPRESSION: 1. No definite acute intracranial process. If the symptoms persist, an MRI should be considered for further evaluation. 2. Areas of decreased attenuation in the white matter likely representing chronic microvascular ische cornelia disease. 3. 3.0 x 0.9 cm extra-axial partially calcified mass along the right convexity most consistent with a meningioma. Nonemergent MRI of the brain without and with contrast should be considered for further evaluation. Unexpected findings RADIATION DOSE DELIVERED: 935.02mGy.cm Total DLP DATA REPOSITORY: All CT scans at this facility are submitted to the National Radiology Data Registry (NRDR) Dose Index Registry (DIR) with the [employer] (ACR). RADIATION OPTIMIZATION: All CT scans at this facility use at least one of these dose optimization te chniques: automated exposure control; mA and/or kV adjustment per patient size (includes targeted exa ms where dose is matched to clinical indication); or iterative reconstruction.
--- NOTE | 2024-11-01 14:25 | W.ED.GENAD ---
Discharge Plan Disposition Patient Disposition: Admit to [facility] Condition: Stable Discharge Details Chief Complaint: [id number] Clinical Impression: Pneumonia, Aortic regurgitation, Hypertension, Syncope Primary Care Provider: Leena Berry ED Provider: Andria Perez Home Meds and New Rx's Prescriptions: No Action triamcinolone acetonide 0.1 % ointment 1 applic topical BID PRN (Reason: leg scales) Qty: 80 0RF Rx Instructions: To apply thin layer to skin on legs when scaly; USE EMOLLIENT first and shortest duration of steroid meclizine 25 mg tablet 25 mg PO TID PRN (Reason: vertigo) Qty: 21 0RF cetirizine 10 mg tablet 10 mg PO DAILY Qty: 90 3RF triamcinolone acetonide 0.1 % ointment 1 applic topical DAILY Qty: 80 0RF diclofenac sodium [Voltaren Arthritis Pain] 1 % gel 2 g topical BID sertraline 25 mg tablet 25 mg PO DAILY Qty: 90 3RF atorvastatin 20 mg tablet 20 mg PO QHS Qty: 90 3RF lisinopril 10 mg tablet 10 mg PO DAILY Qty: 90 3RF risperidone 0.25 mg tablet 0.25 mg PO DAILY Qty: 90 3RF levothyroxine 100 mcg tablet See Rx Instructions .ROUTE .COMPLEX Qty: 90 3RF Dose Instruction: TAKE ONE TABLET BY MOUTH EVERY DAY Rx Instructions: TAKE ONE TABLET BY MOUTH EVERY DAY bupropion HCl 150 mg tablet sustained-release 12 hr See Rx Instructions .ROUTE .COMPLEX Qty: 270 3RF Dose Instruction: TAKE TWO TABLETS BY MOUTH EVERY MORNING AND ONE TABLET IN THE EVENING Rx Instructions: TAKE TWO TABLETS BY MOUTH EVERY MORNING AND ONE TABLET IN THE EVENING omeprazole 20 mg capsule,delayed release(DR/EC) See Rx Instructions .ROUTE .COMPLEX Qty: 90 3RF Dose Instruction: TAKE ONE CAPSULE BY MOUTH EVERY MORNING Rx Instructions: TAKE ONE CAPSULE BY MOUTH EVERY MORNING metformin 500 mg tablet extended release 24 hr 1,000 mg PO DAILY Qty: 90 3RF naltrexone 50 mg tablet See Rx Instructions .ROUTE .COMPLEX Qty: 90 1RF Dose Instruction: TAKE ONE-HALF TABLET BY MOUTH TWICE A DAY Rx Instructions: TAKE ONE-HALF TABLET BY MOUTH TWICE A DAY aspirin 81 mg tablet,delayed release (DR/EC) See Rx Instructions .ROUTE .COMPLEX Qty: 90 3RF Dose Instruction: TAKE ONE TABLET BY MOUTH EVERY DAY Rx Instructions: TAKE ONE TABLET BY MOUTH EVERY DAY ropinirole 1 mg tablet 1 mg PO QHS Qty: 90 3RF Rx Instructions: administer 1-3 hours before bedtime spironolactone 25 mg tablet See Rx Instructions .ROUTE .COMPLEX Qty: 90 3RF Dose Instruction: TAKE ONE TABLET BY MOUTH EVERY DAY Rx Instructions: TAKE ONE TABLET BY MOUTH EVERY DAY cyclobenzaprine 10 mg tablet See Rx Instructions .ROUTE .COMPLEX Qty: 60 0RF Dose Instruction: TAKE ONE TABLET BY MOUTH THREE TIMES A DAY NEEDED FOR MUSCLE SPASMS Rx Instructions: TAKE ONE TABLET BY MOUTH THREE TIMES A DAY NEEDED FOR MUSCLE SPASMS furosemide 20 mg tablet See Rx Instructions .ROUTE .COMPLEX Qty: 90 0RF Dose Instruction: TAKE ONE TABLET BY MOUTH EVERY DAY Rx Instructions: TAKE ONE TABLET BY MOUTH EVERY DAY lidocaine [Lidoderm] 5 % adhesive patch,medicated 1 patch topical DAILY PRNQty: 15 0RF Rx Instructions: leave on most painful area for up to 12 hrs HPI General Mode of arrival: EMS. Date/Time Provider Initiated Documentation: 11/01/24 14:10. Limitations to Documentation: no limitations. Information obtained by: patient, EMS and old records reviewed. HPI Narrative: HPI: This is a 64-year-old male patient with a history of prediabetes, hyperlipidemia, aortic regurgitation, hypertension, presenting for evaluation of a fall. The patient reports that for the last 4 days he has felt unwell, with nausea and vomiting and epigastric abdominal pain. States that he has not had any lower abdominal pain or changes in bowel or bladder habits, last stool yesterday. States that he began to feel weak and unwell yesterday, after not having eaten or drank much for the last 4 days. He sustained a trip and fall when walking down steps yesterday, no loss of consciousness or head strike. Today, he states that he was trying to get up off the toilet, and felt like he was too weak to do so. He tried to pull himself up by his hands and is not sure what happened, not sure if he got dizzy or passed out, and fell on the ground. No anticoagulant use, denies head pain, vision changes, or other pain associated with the trauma. He was brought in by EMS for evaluation, was tachycardic but otherwise hemodynamically appropriate, they did note a new hypoxia for which she was placed on nasal cannula. The patient himself notes no chest pain, shortness of breath, cough or upper respiratory symptoms. Exam: Gen: Awake and alert, in no apparent distress HEENT: Non-icteric sclera Neck: Supple Lungs: No apparent respiratory distress, normal respiratory effort. Lung sounds clear and equal bilaterally CV: Appears well perfused, heart with tachycardic rate but regular rhythm, no murmurs auscultated, strong distal pulses Abdomen: Non-distended, soft, tender to palpation in the epigastric region without rigidity, rebound, or guarding MSK: Moves 4 extremities without apparent limitation in ROM Skin: Visualized skin without rashes, cyanosis. Neuro: Normal Gait, no obvious focal deficits or facial asymmetry. Speaks in full, clear sentences. Psych: Appropriate for situation. MDM: This is a 64-year-old male patient presenting for evaluation of abdominal pain and syncope. Differential includes but is not limited to intracranial hemorrhage, considered skull fracture, considered orthostasis and vasovagal syndrome, especially in the setting of his potential dehydration due to his poor p.o. intake. Considered metabolic electrolyte derangements, kidney injury, and abdominal processes including gastritis, pancreatitis, hepatitis, cholecystitis. Less likely mesenteric ischemia or bowel obstruction. The patient is not experiencing any pulmonary symptoms at this time to significantly increase my concern for etiologies such as pneumonia or bronchitis, no chest pain to suggest ACS. However, he has unexplained hypoxia and tachycardia, and pulmonary embolism is on the differential. We obtained an EKG, which shows a sinus tachycardia with a rate of 109 but no evidence of ischemia, interval abnormality, or ectopy. We will obtain laboratory studies to include CBC, CMP, magnesium, lactate, lipase, and urinalysis. I will provide the patient with a dose of Tylenol and Zofran for initial symptomatic management, and will obtain a Noncon CT head, CT pulmonary embolism, and CT abdomen pelvis with contrast to better characterize any abnormalities. ED Course: I reviewed the patient's laboratory studies, which show no leukocytosis, anemia or thrombocytopenia. Chemistry panel without significant electrolyte derangements, evidence of kidney dysfunction or liver disease. Troponin was negative and without interval change on recheck concerning for active ischemia. Lipase is low. I reviewed the patient's CT scans, as well as the radiology report. He does have evidence of multifocal pneumonia, no pulmonary embolism, and no evidence of abdominal pathology to explain his pain. When I discussed this finding with the patient, he states that he feels like his pain is probably due to all of the coughing that he has been doing. Head CT without evidence of intracranial hemorrhage, or other traumatic injuries. Incidental calcified meningioma appreciated. A room air trial was performed, patient saturating at approximately 92% on room air while at rest, tachycardia has resolved but recurs significantly with minimal exertion during an attempted ambulatory trial. Patient felt orthostatic/near syncopal, and could not ambulate from his bed. For this reason, I provided him with a liter of IV fluids, and a dose of ceftriaxone and azithromycin for treatment of his pneumonia. I reached out to the hospitalist service who is graciously accepted this patient for admission to the floor, transferred to their service without incident and remained hemodynamically appropriate while under my care. Andria Perez MD Related Data Home Medications ?Medication ?Instructions ?Recorded ?Confirmed lidocaine 5 % topical patch 1 patch topical DAILY PRN #15 ea 04/04/23 11/01/24 (Lidoderm) diclofenac sodium 1 % topical gel 2 g topical BID 06/30/23 11/01/24 (Voltaren Arthritis Pain) triamcinolone acetonide 0.1 % 1 applic topical BID PRN leg 11/18/23 11/01/24 topical ointment scales #80 grams sertraline 25 mg tablet 25 mg PO DAILY #90 tabs 12/27/23 11/01/24 atorvastatin 20 mg tablet 20 mg PO QHS #90 tabs 01/21/24 11/01/24 lisinopril 10 mg tablet 10 mg PO DAILY #90 tabs 02/14/24 11/01/24 levothyroxine 100 mcg tablet See Rx Instructions .Route 02/15/24 11/01/24 .COMPLEX #90 tabs risperidone 0.25 mg tablet 0.25 mg PO DAILY #90 tabs 02/15/24 11/01/24 triamcinolone acetonide 0.1 % 1 applic topical DAILY #80 grams 04/03/24 11/01/24 topical ointment bupropion HCl 150 mg tablet,12 hr See Rx Instructions .Route 05/12/24 11/01/24 sustained-release .COMPLEX #270 tabs omeprazole 20 mg capsule,delayed See Rx Instructions .Route 05/15/24 11/01/24 release .COMPLEX #90 caps metformin 500 mg tablet,extended 1,000 mg (2 x 500 mg) PO DAILY #90 05/31/24 11/01/24 release 24 hr tabs cetirizine 10 mg tablet 10 mg PO DAILY #90 tabs 06/13/24 11/01/24 aspirin 81 mg tablet,delayed See Rx Instructions .Route 07/18/24 11/01/24 release .COMPLEX #90 tabs naltrexone 50 mg tablet See Rx Instructions .Route 07/18/24 11/01/24 .COMPLEX #90 tabs ropinirole 1 mg tablet 1 mg PO QHS #90 tabs 07/24/24 11/01/24 spironolactone 25 mg tablet See Rx Instructions .Route 08/01/24 11/01/24 .COMPLEX #90 tabs cyclobenzaprine 10 mg tablet See Rx Instructions .Route 09/12/24 11/01/24 .COMPLEX #60 tabs meclizine 25 mg tablet 25 mg PO TID PRN vertigo #21 tabs 09/27/24 11/01/24 furosemide 20 mg tablet See Rx Instructions .Route 10/09/24 11/01/24 .COMPLEX #90 tabs Previous Rx's ?Medication ?Instructions ?Recorded lidocaine 5 % topical patch 1 patch topical DAILY PRN #15 ea 04/04/23 (Lidoderm) triamcinolone acetonide 0.1 % 1 applic topical BID PRN leg 11/18/23 topical ointment scales #80 grams sertraline 25 mg tablet 25 mg PO DAILY #90 tabs 12/27/23 atorvastatin 20 mg tablet 20 mg PO QHS #90 tabs 01/21/24 lisinopril 10 mg tablet 10 mg PO DAILY #90 tabs 02/14/24 levothyroxine 100 mcg tablet See Rx Instructions .Route 02/15/24 .COMPLEX #90 tabs risperidone 0.25 mg tablet 0.25 mg PO DAILY #90 tabs 02/15/24 triamcinolone acetonide 0.1 % 1 applic topical DAILY #80 grams 04/03/24 topical ointment bupropion HCl 150 mg tablet,12 hr See Rx Instructions .Route 05/12/24 sustained-release .COMPLEX #270 tabs omeprazole 20 mg capsule,delayed See Rx Instructions .Route 05/15/24 release .COMPLEX #90 caps metformin 500 mg tablet,extended 1,000 mg (2 x 500 mg) PO DAILY #90 05/31/24 release 24 hr tabs cetirizine 10 mg tablet 10 mg PO DAILY #90 tabs 06/13/24 aspirin 81 mg tablet,delayed See Rx Instructions .Route 07/18/24 release .COMPLEX #90 tabs naltrexone 50 mg tablet See Rx Instructions .Route 07/18/24 .COMPLEX #90 tabs ropinirole 1 mg tablet 1 mg PO QHS #90 tabs 07/24/24 spironolactone 25 mg tablet See Rx Instructions .Route 08/01/24 .COMPLEX #90 tabs cyclobenzaprine 10 mg tablet See Rx Instructions .Route 09/12/24 .COMPLEX #60 tabs meclizine 25 mg tablet 25 mg PO TID PRN vertigo #21 tabs 09/27/24 furosemide 20 mg tablet See Rx Instructions .Route 10/09/24 .COMPLEX #90 tabs Allergies Allergy/AdvReac Type Severity Reaction Status Date / Time Penicillins Allergy Severe Skin Rash, Verified 11/01/24 14:46 TONGUE SWELLING Sulfa (Sulfonamide Allergy Intermediate Skin Rash Verified 11/01/24 14:46 Antibiotics) clindamycin Allergy Mild unknown Verified 11/01/24 14:46 oxacillin Allergy Mild unknown Verified 11/01/24 14:46 General Stated Complaint: [id number] ZANE: 3 Course Vital Signs Vital signs: Vital Signs Temperature 37.8 C H 11/01/24 13:58 Pulse 107 H 11/01/24 13:58 Respiratory Rate 25 H 11/01/24 13:58 Blood Pressure 143/70 H 11/01/24 13:58 Pulse Oximetry 92 11/01/24 13:58 Temperature 37.8 C H 11/01/24 13:58 Pulse 107 H 11/01/24 13:58 Respiratory Rate 25 H 11/01/24 13:58 Blood Pressure 143/70 H 11/01/24 13:58 Blood Pressure Position Sitting 11/01/24 13:58 Pulse Oximetry 92 11/01/24 13:58 Oxygen Delivery Method Room Air 11/01/24 13:58 Oxygen Flow Rate 0 11/01/24 13:58 Pain Level 8 11/01/24 13:58 Lab/Test Results Lab/Test Results: 11/01/24 14:21 Blood Blood Culture - Pending 11/01/24 14:21 Blood Blood Culture - Pending Medical Decision Making Quality:SDOH Health Related Social Needs: No Data to Display PFSH All Active Problems (Updated 11/01/24 @ 17:23 by Andria Perez MD) Syncope (Chronic) Pneumonia (Acute) History of prediabetes (Acute) Vertigo (Acute) Peripheral vascular disease, unspecified (Chronic) Wound of left lower extremity (Acute) Eczema (Acute) COVID-19 (Acute) Prediabetes (Acute 01/2019) Hyperlipidemia (Acute) Aortic regurgitation (Acute) Left ventricular hypertrophy (Acute) Fatty infiltration of liver (Acute) Cholelithiasis (Acute) Anterior epistaxis (Acute) Screening for colorectal cancer (Acute) Primary osteoarthritis of right knee (Acute) Injected: 06/26/2019 Primary osteoarthritis of left knee (Acute) Injected: 06/26/2019 Hypertension (Chronic) Insomnia (Acute) Obesity (Chronic) Tear of medial meniscus of left knee (Acute 09/26/19) Status post knee arthroscopy -partial medial meniscectomy and plica excision Medical History Superficial thrombosis of leg (04/05/20) Hypothyroidism Anxiety Depression GERD (gastroesophageal reflux disease) Restless leg syndrome Sleep apnea does not use device Surgical History Hx of oral surgery Pt states gum surgery Hx of shoulder surgery L Shoulder History of arthroscopy of right knee Dr. Woodall Colonoscopy - MAC (03/13/16) Social History Smoking/Tobacco Use Status: Former Tobacco Use Quit Date: 08/16/82 Smoking risk assessment performed?: Yes Alcohol Intake: former Drug use: Never Substance use type: does not use Adopted: Yes Caregiver/Support person: Yes Foster care: Yes Housing: apartment Number of Children: 3 number of grandchildren: 8 Communication Needs: None Education Level: high school Do you need help understanding health information?: Never current occupation: unemployed Pets and animals: Yes Pets and animals: dog(s) Sexually active: No Do you think of yourself as: straight/heterosexual Current gender identity: male What is your relationship status?: How often do you talk on the phone with friends or family?: three or more times per week How often do you get together with friends or relatives?: twice per week Do you belong to any clubs or organized social groups?: no Panel score (0-1 are the most socially isolated patients): 1 What type of physical activity do you participate in: walking Duration: 15-30 minutes/day Frequency: daily Seatbelt use: never Helmet use: No Drive 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
[2024-11-01 14:46] LABS: Lactate 1.8 mmol/L (<or=2.0)
[2024-11-01] MEDS: ACETAMINOPHEN 1,000 MG/100 ML BAG 400 MG IVPB (14:46)
[2024-11-01 14:47] LABS: Abs Immature Grans 0.03 10^3/uL (0.0-0.06); Absolute Basophil Count 0.03 10^3/uL (0.0-0.2); Absolute Eosinophil Count 0.02 10^3/uL (0.0-0.7); Absolute Lymphocyte Count 0.77 10^3/uL (1.2-3.4); Absolute Monocyte Count 0.59 10^3/uL (0.1-0.8); Absolute Neutrophil Count 8.12 10^3/uL (1.2-6.7); Basophils % 0.3 %; Eosinophils % 0.2 %; HGB 13.9 g/dL (13.5-17.5); Immature Grans % 0.3 %; Lymphocytes % 8.1 %; MCH 28.3 pg (27.0-33.0); MCHC 32.3 % (32.0-36.0); MCV 88 fL (80-95); MPV 9.3 fL (8.0-11.0); Monocytes % 6.2 %; Neutrophils % 84.9 %; Platelet Count 308 10^3/uL (130-400); RBC 4.91 10^6/uL (4.36-5.78); RDW 13.4 % (11.8-14.1); RDW-SD 43.4 fL; WBC 9.56 10^3/uL (4.4-10.8)
[2024-11-01] MEDS: Ondansetron 4 MG/2 ML VIAL IVP (14:47)
[2024-11-01] MEDS: Normal Saline Flush 10 ML SYR IVP ×3 (14:48→20:21)
--- NOTE | 2024-11-01 14:55 | DI.CT_ITS ---
Exam(s) CT CHEST PE ABD PELVIS W EXAM: CT CHEST PE ABD PELVIS W CLINICAL HISTORY: Unexplained hypoxia and tachycardia. TECHNIQUE: Imaging Protocol: Axial CT angiography was performed with multi-slice acquisition and mu lti-planar and/or 3D reconstructions. Computer aided detection (CAD) was utilized. CONTRAST MATERIAL: Intravenous: Omnipaque 350contrast volume:structured data in ml mL COMPARISON: CT CT PELVIC WO from 09/28/2023 FINDINGS: The examination is limited due to patient motion artifact. CHEST: Tracheobronchial tree: Patent where visualized. No evidence of bronchiectasis. Pulmonary parenchyma: There is a multifocal reticular nodular infiltrate present. No architectural d istortion. Pulmonary Arteries: There is suboptimal opacification of the peripheral pulmonary arteries. Within t he limits of the examination, no pulmonary embolism is present. Mediastinum and Shahnaz: No dominant adenopathy or fluid collection. The esophagus is unremarkable. Visualized thyroid gland: Unremarkable. Pleura: No effusion or pneumothorax. Heart: The heart is not dilated. Two vessel coronary artery calcification is present. No pericardial effusion. Aorta: Thoracic aorta non-dilated. Atherosclerotic calcification is present. Bones: Within normal limits for the patient's age. Soft tissues: Gynecomastia. ABDOMEN: Liver: Normal density. No measurable mass. Portal, Superior Mesenteric, and Splenic Veins: Unremarkable. Gallbladder and Biliary Tract: Cholelithiasis. No biliary ductal dilatation. No CT evidence to sugg est acute cholecystitis. Pancreas: Normal density, no abnormal calcifications or inflammatory process. Spleen: Normal. Adrenals: No masses seen. Kidneys: Normal size, contour and axis. No radiodense stones or obstructive uropathy. There is a simp le cyst in the right kidney. No follow-up is recommended. Abdominal Aorta: Abdominal portion non-dilated. Atherosclerotic calcification is present. Bowel: No obstruction or bowel wall thickening. Appendix is unremarkable. Peritoneal Cavity: No ascites, collection or mesenteric inflammatory response. No free air. Lymph Nodes: Within normal limits. Bones: Within normal limits for the patient's age. Soft Tissues: There is a fat containing left inguinal hernia. PELVIS: Bladder: Symmetric distention, no gross wall thickening. Reproductive Organs: Unremarkable as visualized. Lymph Nodes: Within normal limits. Bones: Within normal limits. IMPRESSION: 1. Within the limits of the examination, no evidence of a pulmonary embolism is present. 2. No evidence of a thoracic aortic aneurysm. 3. Multifocal reticular nodular infiltrate in the lung suspicious for pneumonia. 4. No acute abdominal or pelvic process. RADIATION DOSE DELIVERED: 1,800.27mGy.cm Total DLP DATA REPOSITORY: All CT scans at this facility are submitted to the National Radiology Data Registry (NRDR) Dose Index Registry (DIR) with the [employer] (ACR). RADIATION OPTIMIZATION: All CT scans at this facility use at least one of these dose optimization te chniques: automated exposure control; mA and/or kV adjustment per patient size (includes targeted exa ms where dose is matched to clinical indication); or iterative reconstruction.
[2024-11-01 15:13] LABS: ALT 28 U/L (16-63); AST 24 U/L (15-37); Albumin 3.2 g/dL (3.4-5.0); Alkaline Phosphatase 99 U/L (46-116); Anion Gap 9.7 mmol/L (3-11); BUN 15 mg/dL (7-18); Bilirubin, Total 0.7 mg/dL (0.2-1.0); CO2 28.3 mmol/L (21.0-32.0); CREATININE 1.3 mg/dL (0.70-1.30); Calcium 8.8 mg/dL (8.5-10.1); Chloride 97 mmol/L (98-107); Estimated GFR 61.35 (mL/min/1.73m2); Glucose 137 mg/dL (74-106); Lipase 19 U/L (<78); Magnesium 1.9 mg/dL; Potassium 4.4 mmol/L (3.5-5.1); Sodium 135 mmol/L (136-145); Total Protein 7.7 g/dL (6.4-8.2); Troponin I 7 ng/L (<or=76)
[2024-11-01] MEDS: Normal Saline - Diluent 50 ML VIAL IJ (16:09)
[2024-11-01] MEDS: Omnipaque 350 MG/ML 100 ML BTL IJ (16:09)
[2024-11-01 16:16] LABS: Troponin I 9 ng/L (<or=76)
[2024-11-01] MEDS: Lactated Ringers 1,000 ML 1000 ML IV (17:24)
[2024-11-01] MEDS: AZITHROMYCIN 500 MG in Normal Saline 250 ML 250 MG IVPB (17:25)
--- NOTE | 2024-11-01 17:34 | W.PM.HP.N ---
Date of service: 11/01/24 Time of Service: 17:34 Assessment and Plan Assessment and plan (1) Sepsis: Status: Acute Assessment and plan: Tachycardia with HR > 90, tachypnea with RR > 20--source pneumonia (2) Pneumonia: Status: Acute Assessment and plan: As per CT findings- multifocal CAP On Ceftriaxone and Azithromycin CBC in AM (3) Syncope: Status: Chronic Assessment and plan: Might have been d/t coughing VS infectious process and sepsis CT head negative , no PE, troponins negative and no coronary occlusion on EKG but minimal ST deprssion in V3, V4 V5 might be ischemic in the setting of hypoxia Echo in AM Telemetry (4) History of prediabetes: Status: Acute Assessment and plan: A1C 5.7 to 6.0 in 2021 On metformin Gluc AC and HS Diabetic diet (5) GERD (gastroesophageal reflux disease): Assessment and plan: On PPI (6) Hypothyroidism: Assessment and plan: on home meds (7) Hypertension: Status: Chronic Assessment and plan: On home meds (8) On deep vein thrombosis (DVT) prophylaxis: Status: Acute Assessment and plan: On Lovenox discussed with Dr. Barr History of Present Illness History of Present Illness Chief Complaint: Syncope, cough Narrative: This is a 64-year-old male patient with a history of prediabetes, hyperlipidemia, aortic regurgitation, hypertension, presented to the ED via EMS s/p fainting and falling in his bathroom for evaluation of a fall, syncope, and abd pain with cough.The patient reported decreased PO intake for over a week, not feeling well for the past 4 days with nausea, vomiting w/o hematemesis, and epigastric pain. The patient reporting worsening pain with cough productive of clear sputum, seing black dots prior to fainting, chills w/o fevers; denied sick contacts, and allergy to antibiotics. The patient presented with tachycardia, tachypnea and hypoxia. The workup in the ED was positive for multifocal pneumonia. CBC and chemistry were unremarkable except for a Na at 135. In the ED the patient was positive for orthostasis. The patient was admitted to the hospitalist service for sepsis in the setting of community acquired pneumonia , acute hypoxic respiratory failure. UR viral panel was not completed and is now pending. Review of Systems All systems reviewed & are unremarkable except as noted in HPI and below PFSH All Active Problems (Updated 11/01/24 @ 19:13 by Amber Esparza APRN) On deep vein thrombosis (DVT) prophylaxis (Acute) Sepsis (Acute) Syncope (Chronic) Pneumonia (Acute) History of prediabetes (Acute) Vertigo (Acute) Peripheral vascular disease, unspecified (Chronic) Wound of left lower extremity (Acute) Eczema (Acute) COVID-19 (Acute) Prediabetes (Acute 01/2019) Hyperlipidemia (Acute) Aortic regurgitation (Acute) Left ventricular hypertrophy (Acute) Fatty infiltration of liver (Acute) Cholelithiasis (Acute) Anterior epistaxis (Acute) Tear of medial meniscus of left knee (Acute 09/26/19) Status post knee arthroscopy -partial medial meniscectomy and plica excision Obesity (Chronic) Insomnia (Acute) Hypertension (Chronic) Primary osteoarthritis of left knee (Acute) Injected: 06/26/2019 Primary osteoarthritis of right knee (Acute) Injected: 06/26/2019 Screening for colorectal cancer (Acute) Medical History Superficial thrombosis of leg (04/05/20) Hypothyroidism Anxiety Depression GERD (gastroesophageal reflux disease) Restless leg syndrome Sleep apnea does not use device Surgical History Hx of oral surgery Pt states gum surgery Hx of shoulder surgery L Shoulder History of arthroscopy of right knee Dr. Woodall [place] [facility] [place] Social History Smoking/Tobacco Use Status: Former Tobacco Use Quit Date: 08/16/82 Smoking risk assessment performed?: Yes Alcohol Intake: former Drug use: Never Substance use type: does not use Adopted: Yes Caregiver/Support person: Yes Foster care: Yes Housing: apartment Number of Children: 3 number of grandchildren: 8 Communication Needs: None Education Level: high school Do you need help understanding health information?: Never current occupation: unemployed Pets and animals: Yes Pets and animals: dog(s) Sexually active: No Do you think of yourself as: straight/heterosexual Current gender identity: male What is your relationship status?: How often do you talk on the phone with friends or family?: three or more times per week How often do you get together with friends or relatives?: twice per week Do you belong to any clubs or organized social groups?: no Panel score (0-1 are the most socially isolated patients): 1 What type of physical activity do you participate in: walking Duration: 15-30 minutes/day Frequency: daily Seatbelt use: never Helmet use: No Drive intox or ride w/intox school bus driver/mechanic: No Working smoke detector in home: Yes Carbon monox detector in home: Yes Do you feel safe at home: Yes Do you feel safe in your relationship?: Yes Victim of physical abuse: No Victim of emotional abuse: No Additional Social history: lives alone Meds Allergies and Home Medications Allergies Allergy/AdvReac Type Severity Reaction Status Date / Time Penicillins Allergy Severe Skin Rash, Verified 11/01/24 14:46 TONGUE SWELLING Sulfa (Sulfonamide Allergy Intermediate Skin Rash Verified 11/01/24 14:46 Antibiotics) clindamycin Allergy Mild unknown Verified 11/01/24 14:46 oxacillin Allergy Mild unknown Verified 11/01/24 14:46 Home Medications ?Medication ?Instructions ?Recorded ?Confirmed ?Type lidocaine 5 % topical patch 1 patch topical DAILY PRN #15 ea 04/04/23 11/01/24 Rx (Lidoderm) diclofenac sodium 1 % topical gel 2 g topical BID 06/30/23 11/01/24 History (Voltaren Arthritis Pain) triamcinolone acetonide 0.1 % 1 applic topical BID PRN leg 11/18/23 11/01/24 Rx topical ointment scales #80 grams sertraline 25 mg tablet 25 mg PO DAILY #90 tabs 12/27/23 11/01/24 Rx atorvastatin 20 mg tablet 20 mg PO QHS #90 tabs 01/21/24 11/01/24 Rx lisinopril 10 mg tablet 10 mg PO DAILY #90 tabs 02/14/24 11/01/24 Rx levothyroxine 100 mcg tablet See Rx Instructions .Route 02/15/24 11/01/24 Rx .COMPLEX #90 tabs risperidone 0.25 mg tablet 0.25 mg PO DAILY #90 tabs 02/15/24 11/01/24 Rx triamcinolone acetonide 0.1 % 1 applic topical DAILY #80 grams 04/03/24 11/01/24 Rx topical ointment bupropion HCl 150 mg tablet,12 hr See Rx Instructions .Route 05/12/24 11/01/24 Rx sustained-release .COMPLEX #270 tabs omeprazole 20 mg capsule,delayed See Rx Instructions .Route 05/15/24 11/01/24 Rx release .COMPLEX #90 caps metformin 500 mg tablet,extended 1,000 mg (2 x 500 mg) PO DAILY #90 05/31/24 11/01/24 Rx release 24 hr tabs cetirizine 10 mg tablet 10 mg PO DAILY #90 tabs 06/13/24 11/01/24 Rx aspirin 81 mg tablet,delayed See Rx Instructions .Route 07/18/24 11/01/24 Rx release .COMPLEX #90 tabs naltrexone 50 mg tablet See Rx Instructions .Route 07/18/24 11/01/24 Rx .COMPLEX #90 tabs ropinirole 1 mg tablet 1 mg PO QHS #90 tabs 07/24/24 11/01/24 Rx spironolactone 25 mg tablet See Rx Instructions .Route 08/01/24 11/01/24 Rx .COMPLEX #90 tabs cyclobenzaprine 10 mg tablet See Rx Instructions .Route 09/12/24 11/01/24 Rx .COMPLEX #60 tabs meclizine 25 mg tablet 25 mg PO TID PRN vertigo #21 tabs 09/27/24 11/01/24 Rx furosemide 20 mg tablet See Rx Instructions .Route 10/09/24 11/01/24 Rx .COMPLEX #90 tabs Exam Narrative Exam Narrative: Constitutional The patient without acute distress and has an obese body habitus . HENMT: Head is atraumatic, normocephalic, no lymphadenopathy. Facial structures with normal appearance Eyes: Well aligned, intact ROM Neck: Normal ROM, no meningeal signs Neuro:alert and oriented to self, person, place time and situation. No neurological focal deficit Chest:Chest is symmetrical and normal appearance Resp:Scattered exp. wheezing, labored with mobilization on stretcher Cardio: regular rhythm, S1, S2, no murmur, capillary refill<3 sec., bilateral radial and dorsalis pedis pulses are positive, palpable GI: Abdomen is not distended, soft and non tender, bowel sounds are present : Negative Costovertebral angle tenderness, no bladder distension Back/spine/Pelvis: No back tenderness, normal alignment Integumentary: No skin lesions or rash Extremities: strength 5/5 to bilateral lower and upper extremities Psych: RASS 0, congruent mood and normal affect. Results Labs 11/01/24 14:35 11/01/24 14:35 Labs: Laboratory Results - last 24 hr 11/01/24 11/01/24 11/01/24 14:35 15:25 17:21 WBC 9.56 RBC 4.91 Hgb 13.9 Hct 43.0 MCV 88 MCH 28.3 MCHC 32.3 RDW 13.4 Plt Count 308 MPV 9.3 Immature Gran % 0.3 Neutrophils % 84.9 Lymphocytes % 8.1 Monocytes % 6.2 Eosinophils % 0.2 Basophils % 0.3 Nucleated RBC % 0.0 Absolute Neutrophils 8.12 H Absolute Lymphocytes 0.77 L Absolute Monocytes 0.59 Absolute Eosinophils 0.02 Absolute Basophils 0.03 VBG Lactate 1.8 Sodium 135 L Potassium 4.4 Chloride 97 L Carbon Dioxide 28.3 Anion Gap 9.7 BUN 15 Creatinine 1.3 Est GFR (CKD-EPI 2020) 61.35 Glucose 137 H Calcium 8.8 Magnesium 1.9 Total Bilirubin 0.7 AST 24 ALT 28 Alkaline Phosphatase 99 Troponin I 7 9 Cancelled Total Protein 7.7 Albumin 3.2 L Lipase 19 Last Vital Signs Temp 37.8 C H 11/01/24 13:58 Pulse 94 H 11/01/24 16:40 Resp 24 11/01/24 16:40 BP 120/64 11/01/24 15:31 Pulse Ox 93 11/01/24 16:40 Time Spent Time spent with Patient: >75 minutes Time was spent: preparing to see the patient(eg.review tests), obtaining and/or reviewing separately otained hiistory, ordering medications,tests, procedures, referring, communicating with other health care transition coordinator, indepentently interpreting results, counseling the patient and care coordination
[2024-11-01] MEDS: cefTRIAXone 1 GM/50 ML BAG IVPB (18:36)
[2024-11-01] MEDS: Lactated Ringers 1,000 ML 100 ML IV (19:52)
[2024-11-01] MEDS: Benzonatate 100 MG CAP PO (20:21)
[2024-11-01] MEDS: Atorvastatin 20 MG TAB PO (20:21)
[2024-11-01] MEDS: rOPINIRole 1 MG TAB PO (20:21)
[2024-11-01] MEDS: guaiFENesin 600 MG TABCR PO (20:21)
[2024-11-01 22:48] LABS: COVID-19 PCR Negative (Negative); Influenza A PCR Negative (Negative); Influenza B PCR Negative (Negative); RSV PCR Negative (Negative)
[2024-11-01 22:56] LABS: Source Nasopharynx
[2024-11-02 00:02] LABS: Clarity Clear (Clear); Glucose Negative (Negative); Ketones Negative (Negative); Leukocyte Esterase Negative (Negative); Nitrite Negative (Negative); Urobilinogen 0.2 mg/dL (Up to 0.2)
[2024-11-02 00:03] LABS: Bilirubin Negative (Negative); Blood Negative (Negative)
[2024-11-02 00:04] LABS: Bacteria Negative HPF (Negative); C & S Indicated? No; Casts Negative LPF (Negative); Crystals Negative HPF (Negative); Epithelial Cells Negative HPF (Negative); Mucus Negative (Negative); RBC Negative HPF (0-2); WBC Negative HPF (0-5)
[2024-11-02 00:49] VITALS: TEMP 38
[2024-11-02] MEDS: Acetaminophen 500 MG TAB 1000 MG PO ×2 (00:49→11:28)
[2024-11-02 01:49] VITALS: TEMP 37.4
[2024-11-02 02:05] VITALS: BP 124/72; PULSE 70; RESP 22; TEMP 36.2; O2SAT 90
[2024-11-02] MEDS: Lactated Ringers 1,000 ML 100 ML IV (06:57)
[2024-11-02 07:06] LABS: Abs Immature Grans 0.04 10^3/uL (0.0-0.06); Absolute Basophil Count 0.04 10^3/uL (0.0-0.2); Absolute Eosinophil Count 0.11 10^3/uL (0.0-0.7); Absolute Lymphocyte Count 1.63 10^3/uL (1.2-3.4); Absolute Monocyte Count 0.65 10^3/uL (0.1-0.8); Absolute Neutrophil Count 4.33 10^3/uL (1.2-6.7); Basophils % 0.6 %; Eosinophils % 1.6 %; HCT 38.5 % (40.0-50.0); HGB 12.4 g/dL (13.5-17.5); Immature Grans % 0.6 %; MCH 28.4 pg (27.0-33.0); MCHC 32.2 % (32.0-36.0); MCV 88 fL (80-95); MPV 9.6 fL (8.0-11.0); Monocytes % 9.6 %; Neutrophils % 63.6 %; Platelet Count 255 10^3/uL (130-400); RBC 4.37 10^6/uL (4.36-5.78); RDW 13.2 % (11.8-14.1); RDW-SD 42.9 fL
[2024-11-02 07:23] LABS: Anion Gap 7.2 mmol/L (3-11); BUN 12 mg/dL (7-18); CO2 28.8 mmol/L (21.0-32.0); Calcium 8.6 mg/dL (8.5-10.1); Chloride 100 mmol/L (98-107); Estimated GFR 84.05 (mL/min/1.73m2); Glucose 85 mg/dL (74-106); Potassium 4.1 mmol/L (3.5-5.1); Sodium 136 mmol/L (136-145)
--- NOTE | 2024-11-02 07:59 | W.PC.ACHO ---
Registration Status: Primary Language: Preferred Language: ED Information & Data Chief Complaint [id number] 11/01/24 14:46 Chief Complaint [id number] 11/01/24 14:29 Triage Note Feel at noon due to leg 11/01/24 13:58 weakness that started yesterday. possible LOC. Denies any injuries from fall. Vomited yesterday. Slightly SOB. C/O generalized abd pain. Medical / Surgical History (Last Reviewed 11/03/23 @ 10:58 by Lisa Katz NP) Superficial thrombosis of leg (04/05/20) Hypothyroidism Anxiety Depression GERD (gastroesophageal reflux disease) Restless leg syndrome Sleep apnea (Last Reviewed 11/03/23 @ 10:58 by Lisa Katz NP) Hx of oral surgery Hx of shoulder surgery History of arthroscopy of right knee Colonoscopy - [facility] (03/13/16) Most Recent Vital Signs Temperature 36.2 C L 11/02/24 02:05 Temperature Source Temporal Artery Scan 11/02/24 02:05 Pulse 70 11/02/24 02:05 Pulse Rhythm Regular 11/01/24 19:55 Pulse 92 H 11/01/24 18:31 Respiratory Rate 22 11/02/24 02:05 Respiratory Effort Normal 11/01/24 19:55 Respiratory Depth Normal 11/01/24 19:55 Respiratory Pattern Normal 11/01/24 19:55 Blood Pressure 124/72 11/02/24 02:05 Blood Pressure Mean 80 11/01/24 18:30 Blood Pressure Position Sitting 11/01/24 13:58 Pulse Oximetry 90 L 11/02/24 02:05 Oxygen Delivery Method Room Air 11/02/24 02:05 Oxygen Flow Rate 0 11/02/24 02:05 Pain Level 0 11/01/24 23:00 Allergies Penicillins Allergy (Severe, Verified 11/01/24 14:46) Skin Rash, TONGUE SWELLING Sulfa (Sulfonamide Antibiotics) Allergy (Intermediate, Verified 11/01/24 14:46) Skin Rash clindamycin Allergy (Mild, Verified 11/01/24 14:46) unknown oxacillin Allergy (Mild, Verified 11/01/24 14:46) unknown Active Medications Generic Name Dose Route Start Last Admin Trade Name Freq PRN Reason Stop Dose Admin Acetaminophen 1,000 mg 11/02/24 00:26 11/02/24 00:49 Acetaminophen 500 Mg Tab PO 1,000 mg Q6H PRN PRN Administration Atorvastatin Calcium 20 mg 11/01/24 20:00 11/01/24 20:21 Atorvastatin 20 Mg Tab PO 20 mg HS JON Administration Benzonatate 100 mg 11/01/24 20:00 11/01/24 20:21 Benzonatate 100 Mg Cap PO 100 mg TID JON Administration Diclofenac Sodium 0 gm 11/01/24 20:00 11/01/24 20:22 Diclofenac 1% Gel 100 Gm Tube TP Not Given BID JON Guaifenesin 600 mg 11/01/24 20:00 11/01/24 20:21 Guaifenesin 600 Mg Tabcr PO 600 mg BID JON Administration Ringer's Solution 1,000 mls @ 100 mls/hr 11/01/24 18:23 11/02/24 06:57 IV 100 mls/hr INFUSION JON Administration Ropinirole HCl 1 mg 11/01/24 20:00 11/01/24 20:21 Ropinirole 1 Mg Tab PO 1 mg HS JON Administration Sodium Chloride 0 ml 11/01/24 14:21 11/01/24 14:48 Normal Saline Flush 10 Ml Syr IVP 20 ml PRN PRN Administration Sodium Chloride 0 ml 11/01/24 20:00 11/01/24 20:21 Normal Saline Flush 10 Ml Syr IVP 10 ml BID JON Administration Sodium Chloride 50 ml 11/01/24 16:15 11/01/24 16:09 Normal Saline - Diluent 50 Ml Vial IJ 50 ml .FOR DI USE JON Administration Sodium Chloride 0 ml 11/01/24 20:00 11/01/24 20:21 Normal Saline Flush 10 Ml Syr IVP 10 ml BID JON Administration IV IV Catheter Type [Right Peripheral IV Antecubital] IV Catheter Gauge [Right 18 Antecubital] Diagnostics 11/02/24 11/01/24 11/01/24 Range/Units 06:46 23:47 22:00 WBC 6.80 (4.4-10.8) 10^3/uL RBC 4.37 (4.36-5.78) 10^6/uL Hgb 12.4 L (13.5-17.5) g/dL Hct 38.5 L (40.0-50.0) % MCV 88 (80-95) fL MCH 28.4 (27.0-33.0) pg MCHC 32.2 (32.0-36.0) % RDW 13.2 (11.8-14.1) % Plt Count 255 (130-400) 10^3/uL MPV 9.6 (8.0-11.0) fL Immature Gran % 0.6 % Neutrophils % 63.6 % Lymphocytes % 24.0 % Monocytes % 9.6 % Eosinophils % 1.6 % Basophils % 0.6 % Nucleated RBC % 0.0 (0.0-0.3) % Absolute Neutrophils 4.33 (1.2-6.7) 10^3/uL Absolute Lymphocytes 1.63 (1.2-3.4) 10^3/uL Absolute Monocytes 0.65 (0.1-0.8) 10^3/uL Absolute Eosinophils 0.11 (0.0-0.7) 10^3/uL Absolute Basophils 0.04 (0.0-0.2) 10^3/uL VBG Lactate (<or=2.0) mmol/L Sodium 136 (136-145) mmol/L Potassium 4.1 (3.5-5.1) mmol/L Chloride 100 (98-107) mmol/L Carbon Dioxide 28.8 (21.0-32.0) mmol/L Anion Gap 7.2 (3-11) mmol/L BUN 12 (7-18) mg/dL Creatinine 1.0 (0.70-1.30) mg/dL Est GFR (CKD-EPI 2020) 84.05 (mL/min/1.73m2) Glucose 85 (74-106) mg/dL Calcium 8.6 (8.5-10.1) mg/dL Magnesium mg/dL Total Bilirubin (0.2-1.0) mg/dL AST (15-37) U/L ALT (16-63) U/L Alkaline Phosphatase (46-116) U/L Troponin I (<or=76) ng/L Total Protein (6.4-8.2) g/dL Albumin (3.4-5.0) g/dL Lipase (<78) U/L Urine Color Yellow (Yellow) Urine Clarity Clear (Clear) Urine pH 6.0 (5-8) Ur Specific [place] 1.010 (1.005-1.025) Urine Protein 30 H (Neg-Trace) mg/dL Urine Ketones Negative (Negative) mg/dL Urine Blood Negative (Negative) Urine Nitrite Negative (Negative) Urine Bilirubin Negative (Negative) Urine Urobilinogen 0.2 (Up to 0.2) mg/dL Ur Leukocyte Esterase Negative (Negative) Urine RBC Negative (0-2) HPF Urine WBC Negative (0-5) HPF Ur Epithelial Cells Negative (Negative) HPF Urine Crystals Negative (Negative) HPF Urine Bacteria Negative (Negative) HPF Urine Casts Negative (Negative) LPF Urine Mucus Negative (Negative) Ur Culture Indicated? No Urine Glucose Negative (Negative) mg/dL COVID-19 Source Nasopharynx SARS-CoV-2 (PCR) Negative (Negative) Influenza Type A (PCR) Negative (Negative) Influenza Type B (PCR) Negative (Negative) RSV (PCR) Negative (Negative) 11/01/24 11/01/24 11/01/24 Range/Units 17:21 15:25 14:35 WBC 9.56 (4.4-10.8) 10^3/uL RBC 4.91 (4.36-5.78) 10^6/uL Hgb 13.9 (13.5-17.5) g/dL Hct 43.0 (40.0-50.0) % MCV 88 (80-95) fL MCH 28.3 (27.0-33.0) pg MCHC 32.3 (32.0-36.0) % RDW 13.4 (11.8-14.1) % Plt Count 308 (130-400) 10^3/uL MPV 9.3 (8.0-11.0) fL Immature Gran % 0.3 % Neutrophils % 84.9 % Lymphocytes % 8.1 % Monocytes % 6.2 % Eosinophils % 0.2 % Basophils % 0.3 % Nucleated RBC % 0.0 (0.0-0.3) % Absolute Neutrophils 8.12 H (1.2-6.7) 10^3/uL Absolute Lymphocytes 0.77 L (1.2-3.4) 10^3/uL Absolute Monocytes 0.59 (0.1-0.8) 10^3/uL Absolute Eosinophils 0.02 (0.0-0.7) 10^3/uL Absolute Basophils 0.03 (0.0-0.2) 10^3/uL VBG Lactate 1.8 (<or=2.0) mmol/L Sodium 135 L (136-145) mmol/L Potassium 4.4 (3.5-5.1) mmol/L Chloride 97 L (98-107) mmol/L Carbon Dioxide 28.3 (21.0-32.0) mmol/L Anion Gap 9.7 (3-11) mmol/L BUN 15 (7-18) mg/dL Creatinine 1.3 (0.70-1.30) mg/dL Est GFR (CKD-EPI 2020) 61.35 (mL/min/1.73m2) Glucose 137 H (74-106) mg/dL Calcium 8.8 (8.5-10.1) mg/dL Magnesium 1.9 mg/dL Total Bilirubin 0.7 (0.2-1.0) mg/dL AST 24 (15-37) U/L ALT 28 (16-63) U/L Alkaline Phosphatase 99 (46-116) U/L Troponin I Cancelled 9 7 (<or=76) ng/L Total Protein 7.7 (6.4-8.2) g/dL Albumin 3.2 L (3.4-5.0) g/dL Lipase 19 (<78) U/L Urine Color (Yellow) Urine Clarity (Clear) Urine pH (5-8) Ur Specific [place] (1.005-1.025) Urine Protein (Neg-Trace) mg/dL Urine Ketones (Negative) mg/dL Urine Blood (Negative) Urine Nitrite (Negative) Urine Bilirubin (Negative) Urine Urobilinogen (Up to 0.2) mg/dL Ur Leukocyte Esterase (Negative) Urine RBC (0-2) HPF Urine WBC (0-5) HPF Ur Epithelial Cells (Negative) HPF Urine Crystals (Negative) HPF Urine Bacteria (Negative) HPF Urine Casts (Negative) LPF Urine Mucus (Negative) Ur Culture Indicated? Urine Glucose (Negative) mg/dL COVID-19 Source SARS-CoV-2 (PCR) (Negative) Influenza Type A (PCR) (Negative) Influenza Type B (PCR) (Negative) RSV (PCR) (Negative) 11/01/24 15:15 Blood Culture - Pending Blood 11/01/24 14:35 Blood Culture - Pending Blood Qefxy-mt-Aggh Documentation Fingerstick Glucose Start: 11/01/24 19:23 Freq: .ACHS Status: Active Protocol: Activity Type Activity Date Activity User E-sign Co-sign Detail Recorded Client Recorded Date Recorded By Document 11/01/24 23:05 JEYSON CORADO(3) [id number] 11/01/24 23:07 JEYSON DASERGIO(4) Intake and Output - 24 Hour Total 11/01/24 13:48 thru 11/02/24 05:52 Intake Total 2840 Output Total 300 Balance 2540 Weight 146.42 kg Intake: IV 2600 Oral 240 Output: Urine 300 Other: Urine Color Yellow Urine Appearance Clear Comment did not void yet since morning before admission. Falls Risk Assessment History of Falls Admit Due to Fall 11/01/24 19:55 Contributing Factors Unstable,Impairments 11/01/24 19:55 Ambulatory Aids Independent 11/01/24 19:55 Tubes/Lines With any additional score 11/01/24 19:55 Gait Evaluation W/any additional score 11/01/24 19:55 Cognition No cognitive impairment 11/01/24 19:55 Fall Total Score 71 11/01/24 19:55 Level of Risk High Risk 11/01/24 19:55 Problems (Last Reviewed 11/03/23 @ 10:58 by Lisa Katz NP) On deep vein thrombosis (DVT) prophylaxis (Acute) Sepsis (Acute) Syncope (Chronic) Pneumonia (Acute) History of prediabetes (Acute) Hypertension (Chronic) v v v v v v v v v Sending and/or Receiving Nurses: Please use comment section below to note any information pertinent to the patient hand-off not included above. Information / Comments: Neuro: AxOx3 Cardiac:Sinus Tach (Tele) Resp: Unable to report. RA Passed oxygen trial, GI: Unable to report : Unable to report Mobility: 2 assist FWW Skin: Unable to report LDA: 18 RAC Tests: CT Neg, Patient needs UA. Needs Non-emergent MRI Cose Status: Full code Patient admitted for abd pain, sycopy, poss. PNA, dizziness, leg weakness. junior project coordinatorTRI Martínez requested that the 17:04 Ceftriaxone be hung before patient arrived to unit. Report received from: Travis 18:30 ED Paged 17:52 Report called: 18:30 Patient arrived: 19:05 Primary Med/press tender long goodsTRI Reyes settled patient, verfied code status and attached telemetry (correct connection verified).
--- NOTE | 2024-11-02 08:45 | DI.US_ITS ---
APPROVED REPORT EXAM: Comprehensive 2D, Doppler, and color-flow Echocardiogram Patient Location: In-Patient Room/Bed: 206 Plant Senior Manager: Jeremy Bai RDCS (AE) Indications: Syncope Other Information Study Quality: Fair. Technically limited study due to body habitus. Conclusion Normal left ventricular wall thickness and chamber size. Ejection fraction is 55%. Wall motion is n ormal Normal right ventricular size and function Both atria are normal in size Trileaflet aortic valve with trace regurgitation There is no additional significant valvular disease Ascending aorta measures 3.76 cm Wall motion Left Ventricle The left ventricle is normal size. The left ventricular systolic function is normal. The left ventric ular ejection fraction is within the normal range. There is normal left ventricular wall thickness. T here is normal LV segmental wall motion. There is no ventricular septal defect visualized. LVEF is 55 %. Right Ventricle The right ventricle is normal size. The right ventricular systolic function is normal. Atria The left atrium size is normal. The right atrium size is normal. The interatrial septum is intact wit h no evidence for an atrial septal defect. Aortic Valve The aortic valve is normal in structure. Aortic valve is trileaflet. There is no aortic valvular sten osis. Trace aortic regurgitation. Mitral Valve The mitral valve is normal in structure. No evidence of mitral valve stenosis. There is no mitral klever ve regurgitation noted. Tricuspid Valve The tricuspid valve is normal in structure. There is no tricuspid valve stenosis. Trace tricuspid reg urgitation. Pulmonic Valve The pulmonary valve is normal in structure. There is no pulmonic valvular stenosis. There is no pulmo rory valvular regurgitation. Great Vessels The aortic root is normal in size. The ascending aorta is mildly dilated. Aortic arch is normal in ca liber. IVC is normal in size and collapses >50% with inspiration. Pericardium There is no pericardial effusion. 2D Dimensions IVSD d PLAX 0.98 cm M: 0.6-1.2 Ao Root d 3.61 cm M: 3.1 - 3.7 LVPW d PLAX 1.00 cm M: 0.6 - 1.2 Ao Asc Diam d 3.76 cm M: 2.6 - 3.4 LVID d PLAX 4.78 cm M: 4.2 - 5.8 LVDs 3.43 cm M: 2.5 - 4.0 LV EF Teichholz 54.7 % FS 28.37 % LV EDV (Teich) 106.6 mL LV ESV (Teich) 48.3 mL Stroke Vol Index (Teich) 23.31 M-Mode TAPSE 2.35 cm (M/F) >1.7 Auto EF LV EDV A4C 120.0 mL LV EDV A2C 76.3 mL LV EDV BP 97.2 mL LV ESV A4C 57.5 mL LV ESV A2C 36.6 mL LV ESV BP 46.1 mL LVEF(%) A4C 52.1 % LVEF(%) A2C 52.0 % LVEF(%) BP 52.6 % LV SV A4C 62.5 ml LV SV A2C 39.6 ml LV SV BP 51.1 ml LV CO A4C 5.8 L/min LV CO A2C 3.7 L/min LV CO BP 4.7 L/min HR A4C 93.27 BPM HR A2C 92.55 BPM LV EDV Index (BP) LA Volume LA Length A4C 5.1 cm LA Length A2C 4.9 cm LA Area A4C s 17.02 cm2 LA Area A2C s 8.42 cm2 LA Vol A4C A-L 48.06 mL LA Vol A2C A-L 12.22 mL LA Vol Biplane A-L 24.7 mL LA Vol/BSA A4C A-L LA Vol/BSA A2C A-L LA Vol/BSA BP A-L 9.9 mL/m2 LA Vol A4C MOD 45.9 mL LA Vol A2C MOD 11.6 mL LA Vol BP MOD 23.3 mL RA Volume RA Area A4C 7.8 cm2 RA ESV A4C (A-L) 12.3mL RA Vol/BSA A4C A-L RA Length A4C 4.2 cm RA ESV A4C (MOD) 11.2mL LV Diastology MV E' medial 0.082 (>0.07 m/s) MV E Vmax 0.65 (0.4-1.3 m/s) MV E/E' MED 7.97 (<14) MV A Vmax 0.90 (0.4-1.3 m/s) MV E' lateral 0.092 (>0.1 m/s) E/A Ratio 0.7 MV E/E' LAT 7.12 (<14) MV E' Average 0.087 m/s MV E/E'(average) 7.52 Aortic Valve AoV Vmax 1.23 m/s LVOT Vmax 1.00 m/s AoV Peak Grad 6.1 mmHg LVOT Peak Grad 4.0 mmHg AoV Area (Vmax) 3.16 cm2 LVOT VTI 0.154 m AoV VTI 0.223 m LVOT Mean Grad 1.8 mmHg AoV Mean James. 0.90 m/s LVOT SV 59.90 mL AoV Mean Grad 3.6 mmHg LVOT Diam s 2.20 cm AoV Area (VTI) 2.68 cm2 AV Regurg Peak Gr. 6.06 mmHg Velocity Ratio 0.81 Pulmonary Valve RVOT Vmax 0.83 m/s RVOT Peak Gr. 2.7 mmHg RVOT VTI 0.140 m RVOT Mean Gr. 1.4 mmHg Tricuspid Valve TV S' 0.20 m/s
--- NOTE | 2024-11-02 10:10 | W.PM.PROGNOT ---
Date of Service Date of service: 11/02/24 Time of Service: 10:10 Assessment and Plan Assessment and plan (1) Sepsis: Status: Acute Assessment and plan: On admission Sepsis criteria met with tachycardia with HR > 90, tachypnea with RR > 20--source of infection : pneumonia IV bolus in ED IVF on the floor and completed (2) Pneumonia: Start date: 11/02/24 Start time: 10:11 Status: Acute Assessment and plan: As per CT findings- multifocal CAP Continue Ceftriaxone and Azithromycin Blood Cx pending Mucinex, acapella, IS, scheduled and PRN nebs CBC in AM (3) Hypoxic respiratory failure: Status: Acute Assessment and plan: On admission with brief need for O2- No COPD Hx- Wean O2 for sat 92 % and above and as above (4) Syncope: Status: Chronic Assessment and plan: Might have been d/t coughing VS infectious process and sepsis CT head negative , no PE, troponins negative and no coronary occlusion on EKG but minimal ST deprssion in V3, V4 V5 might be ischemic in the setting of hypoxia Echo pending Telemetry (5) History of prediabetes: Status: Acute Assessment and plan: A1C 5.7 to 6.0 in 2021 On home dose metformin Continue Gluc AC and HS and diabetic diet BMP in AM (6) GERD (gastroesophageal reflux disease): Assessment and plan: On home PPI (7) Hypothyroidism: Assessment and plan: on home Synthroid dose (8) Hypertension: Status: Chronic Assessment and plan: continue home medicine regimen (9) On deep vein thrombosis (DVT) prophylaxis: Status: Acute Assessment and plan: continue Lovenox discussed with Dr. Egan Subjective Subjective Patient reports: no new complaints, feels better, tolerating liquids well, tolerating a regular diet, voiding w/o difficulty, bowel movement and shortness of breath (minimal with exertion ); denies diarrhea, nausea, vomiting or fever Exam Narrative Exam Narrative: Constitutional The patient without acute distress Neuro:alert and oriented X4 ; no neurological focal deficit Chest:Chest is symmetrical and normal appearance Resp:Scattered exp. wheezing to upper lobes , labored with ambulation only Cardio: regular rhythm, S1, S2, no murmur, capillary refill<3 sec., bilateral radial and dorsalis pedis pulses are positive, palpable GI: Abdomen is large not distended, soft and non tender, bowel sounds are present Back/spine/Pelvis: No back tenderness, normal alignment Integumentary: No skin lesions or rash on exposed skin Extremities: strength 5/5 to bilateral lower and upper extremities Psych: RASS 0, congruent mood and normal affect. Objective Last Vital Signs Temp 36.2 C L 11/02/24 02:05 Pulse 70 11/02/24 02:05 Resp 22 11/02/24 02:05 BP 124/72 11/02/24 02:05 Pulse Ox 90 L 11/02/24 02:05 Laboratory Results - last 24 hr 11/01/24 11/01/24 11/01/24 14:35 15:25 17:21 WBC 9.56 RBC 4.91 Hgb 13.9 Hct 43.0 MCV 88 MCH 28.3 MCHC 32.3 RDW 13.4 Plt Count 308 MPV 9.3 Immature Gran % 0.3 Neutrophils % 84.9 Lymphocytes % 8.1 Monocytes % 6.2 Eosinophils % 0.2 Basophils % 0.3 Nucleated RBC % 0.0 Absolute Neutrophils 8.12 H Absolute Lymphocytes 0.77 L Absolute Monocytes 0.59 Absolute Eosinophils 0.02 Absolute Basophils 0.03 VBG Lactate 1.8 Sodium 135 L Potassium 4.4 Chloride 97 L Carbon Dioxide 28.3 Anion Gap 9.7 BUN 15 Creatinine 1.3 Est GFR (CKD-EPI 2020) 61.35 Glucose 137 H Calcium 8.8 Magnesium 1.9 Total Bilirubin 0.7 AST 24 ALT 28 Alkaline Phosphatase 99 Troponin I 7 9 Cancelled Total Protein 7.7 Albumin 3.2 L Lipase 19 Urine Color Urine Clarity Urine pH Ur Specific [place] Urine Protein Urine Ketones Urine Blood Urine Nitrite Urine Bilirubin Urine Urobilinogen Ur Leukocyte Esterase Urine RBC Urine WBC Ur Epithelial Cells Urine Crystals Urine Bacteria Urine Casts Urine Mucus Ur Culture Indicated? Urine Glucose COVID-19 Source SARS-CoV-2 (PCR) Influenza Type A (PCR) Influenza Type B (PCR) RSV (PCR) 11/01/24 11/01/24 11/02/24 22:00 23:47 06:46 WBC 6.80 RBC 4.37 Hgb 12.4 L Hct 38.5 L MCV 88 MCH 28.4 MCHC 32.2 RDW 13.2 Plt Count 255 MPV 9.6 Immature Gran % 0.6 Neutrophils % 63.6 Lymphocytes % 24.0 Monocytes % 9.6 Eosinophils % 1.6 Basophils % 0.6 Nucleated RBC % 0.0 Absolute Neutrophils 4.33 Absolute Lymphocytes 1.63 Absolute Monocytes 0.65 Absolute Eosinophils 0.11 Absolute Basophils 0.04 VBG Lactate Sodium 136 Potassium 4.1 Chloride 100 Carbon Dioxide 28.8 Anion Gap 7.2 BUN 12 Creatinine 1.0 Est GFR (CKD-EPI 2020) 84.05 Glucose 85 Calcium 8.6 Magnesium Total Bilirubin AST ALT Alkaline Phosphatase Troponin I Total Protein Albumin Lipase Urine Color Yellow Urine Clarity Clear Urine pH 6.0 Ur Specific [place] 1.010 Urine Protein 30 H Urine Ketones Negative Urine Blood Negative Urine Nitrite Negative Urine Bilirubin Negative Urine Urobilinogen 0.2 Ur Leukocyte Esterase Negative Urine RBC Negative Urine WBC Negative Ur Epithelial Cells Negative Urine Crystals Negative Urine Bacteria Negative Urine Casts Negative Urine Mucus Negative Ur Culture Indicated? No Urine Glucose Negative COVID-19 Source Nasopharynx SARS-CoV-2 (PCR) Negative Influenza Type A (PCR) Negative Influenza Type B (PCR) Negative RSV (PCR) Negative Time Spent with Patient Time Spent with Patient: >50 minutes Time was spent: preparing to see the patient(eg.review tests), obtaining and/or reviewing separately otained hiistory, ordering medications,tests, procedures, referring, communicating with other health child care center administrator, indepentently interpreting results, counseling the patient and care coordination
[2024-11-02] MEDS: Benzonatate 100 MG CAP PO ×3 (11:27→20:01)
[2024-11-02] MEDS: risperiDONE 0.25 MG TAB PO (11:27)
[2024-11-02] MEDS: buPROPion-CR 150 MG TABCR 300 MG PO (11:28)
[2024-11-02] MEDS: Cetirizine 10 MG TAB PO (11:28)
[2024-11-02] MEDS: Sertraline 25 MG TAB PO (11:29)
[2024-11-02] MEDS: Meclizine 25 MG TAB PO (11:29)
[2024-11-02] MEDS: Levothyroxine 100 MCG TAB PO (11:29)
[2024-11-02] MEDS: metFORMIN C.R. 500 MG TABCR 1000 MG PO (11:29)
[2024-11-02] MEDS: Lisinopril 10 MG TAB PO (11:29)
[2024-11-02] MEDS: guaiFENesin 600 MG TABCR PO ×2 (11:29→20:01)
[2024-11-02] MEDS: Omeprazole 20 MG CAPCR PO (11:30)
[2024-11-02] MEDS: Enoxaparin 40 MG/0.4 ML SYR SC (11:30)
[2024-11-02 11:35] VITALS: BP 131/84; PULSE 91; RESP 18; TEMP 36.4; O2SAT 90
[2024-11-02] MEDS: Aspirin E.C. 81 MG TABEC PO (12:04)
[2024-11-02] MEDS: cefTRIAXone 1 GM/50 ML BAG IVPB (12:05)
[2024-11-02] MEDS: Normal Saline Flush 10 ML SYR IVP ×2 (12:06→20:01)
--- NOTE | 2024-11-02 14:22 | PDOC.CMIN ---
Date of service: 11/02/24 Time of Service: 14:22 Care Management Initial Assmt Initial Assessment Reason for Hospitalization: CAP, Syncope Functional Status/Living Situation Patient Presentation: Milind was sitting in the recliner when CM met with him. He is disabled and lives alone in an apartment in [facility]. His mother Serena is his primary support person, however she is currently hospitalized at a different hospital. His sister is Nae Schofield, she is local and also disabled. Milind is on SSDI and gets a food benefit of just over $200 a month. He can only afford to buy cheap processed food, which is always gone before the end of the month. He is familiar with [facility] gets food from their food pantry. He drives, but his car is broke down. He would like to get on the list for [facility] and is very interested in a referral to [facility] for support with community resources. He would be receptive to [facility] services if they are recommended. CM will follow. Town of Residence: [facility] Resides with: Alone Significant Other/Family: Local Natural Supports: Mother Serena Sister Employment Status: Disabled Instrumental Activities of Daily Living (ADLs): Independent Medications Medication Management: No Issues/Barriers identified Physical Functioning/Mobility Assistive Device: Uses a walking stick Advance Directives Advance Directives: Do you have an Advance Directive: N 10/22/12 04:56 AD On File at [facility]: N 10/16/12 08:39 Date Asked 11/01/24 11/01/24 14:26 AD Date Reviewed COLST On File at [facility] COLST Date Scanned Code Status Resuscitation Status Full Code Portal Pt does not currently have a portal and education provided: Yes Insurance Coverage/Financial Issues Insurance: [employer] [facility] Medicaid Care Team Visit Care Team Role Provider Type Leena Berry NP Primary Care Provider NURSE PRACTITIONER Andria Perez MD Emergency Provider [facility] STAFF PHYSICIAN Vinny Barr Admit Provider [facility] STAFF PHYSICIAN Attending Provider Discharge Potential Discharge Needs: PCP F/U Appt Anticipated Barriers to Discharge: None Identified Patient/Family Education Needs: Review discharge instructions, discuss Ask Me Three Transportation: RCT Plan: Anticipate, Milind will discharge home via RCT private vehicle when medically ready for discharge. He will follow up with Primary Care and his discharge plan of care as directed. CM will follow. Social Determinants of Health Screening Social Determinants of Health last assessed: 11/02/24 Will the Patient Participate in the Screening?: Yes Do you worry about having a steady place to live?: no Problems where you live: no known problems In the past 12 months, have you had to go without electric, gas, oil or water in your home?: no Have you or anyone in your house had to go without enough food to eat?: no Has lack of transportation kept you from medical appointments or from doing things needed for daily living?: no Has anyone in your life made you feel unsafe or unsupported?: no How hard is it for you to pay for the very basics like food, housing, medical care, and heating? Would you say it is:: Not hard at all Do you want help finding or keeping work or a job?: I do not need or want help If for any reason you need help with day-to-day activities such as bathing, preparing meals, shopping, managing finances, etc., do you get the help you need?: I don?t need any help How often do you feel lonely or isolated from those around you?: Sometimes Do you speak a language other than Japanese at home?: Yes Does the patient want assistance with any of the above?: No Social Determinants of Health Comments([facility] Details): lives in apartment Health Related Social Needs Health related social needs: feeling lonely/isolated (Z60.8) and education (Z55.6) PFSH All Active Problems (Updated 11/02/24 @ 12:39 by Amber Esparza APRN) Hypoxic respiratory failure (Acute) On deep vein thrombosis (DVT) prophylaxis (Acute) Sepsis (Acute) Syncope (Chronic) Pneumonia (Acute) History of prediabetes (Acute) Vertigo (Acute) Peripheral vascular disease, unspecified (Chronic) Wound of left lower extremity (Acute) Eczema (Acute) COVID-19 (Acute) Prediabetes (Acute 01/2019) Hyperlipidemia (Acute) Aortic regurgitation (Acute) Left ventricular hypertrophy (Acute) Fatty infiltration of liver (Acute) Cholelithiasis (Acute) Anterior epistaxis (Acute) Screening for colorectal cancer (Acute) Primary osteoarthritis of right knee (Acute) Injected: 06/26/2019 Primary osteoarthritis of left knee (Acute) Injected: 06/26/2019 Hypertension (Chronic) Insomnia (Acute) Obesity (Chronic) Tear of medial meniscus of left knee (Acute 09/26/19) Status post knee arthroscopy -partial medial meniscectomy and plica excision Medical History Superficial thrombosis of leg (04/05/20) Hypothyroidism Anxiety Depression GERD (gastroesophageal reflux disease) Restless leg syndrome Sleep apnea does not use device Surgical History Hx of oral surgery Pt states gum surgery Hx of shoulder surgery L Shoulder History of arthroscopy of right knee Dr. Talisha Johnson - [facility] (03/13/16) Social History Smoking/Tobacco Use Status: Former Tobacco Use Quit Date: 08/16/82 Smoking risk assessment performed?: Yes Alcohol Intake: former Drug use: Never Substance use type: does not use Adopted: Yes Caregiver/Support person: Yes Foster care: Yes Housing: apartment Number of Children: 3 number of grandchildren: 8 Communication Needs: None Education Level: high school Do you need help understanding health information?: Never current occupation: unemployed Pets and animals: Yes Pets and animals: dog(s) Sexually active: No Do you think of yourself as: straight/heterosexual Current gender identity: male What is your relationship status?: How often do you talk on the phone with friends or family?: three or more times per week How often do you get together with friends or relatives?: twice per week Do you belong to any clubs or organized social groups?: no Panel score (0-1 are the most socially isolated patients): 1 What type of physical activity do you participate in: walking Duration: 15-30 minutes/day Frequency: daily Seatbelt use: never Helmet use: No Drive intox or ride w/intox canal driver: No Working smoke detector in home: Yes Carbon monox detector in home: Yes Do you feel safe at home: Yes Do you feel safe in your relationship?: Yes Victim of physical abuse: No Victim of emotional abuse: No Additional Social history: lives alone
[2024-11-02 15:26] VITALS: BP 104/69; PULSE 94; RESP 15; TEMP 36.5; O2SAT 89
[2024-11-02] MEDS: AZITHROMYCIN 250 MG in Normal Saline 250 ML IVPB (18:19)
[2024-11-02 19:06] VITALS: BP 116/85; PULSE 94; RESP 18; TEMP 36.7; O2SAT 95
[2024-11-02] MEDS: rOPINIRole 1 MG TAB PO (20:02)
[2024-11-02] MEDS: Atorvastatin 20 MG TAB PO (20:02)
[2024-11-02] MEDS: buPROPion-CR 150 MG TABCR PO (20:06)
[2024-11-02] MEDS: Diclofenac 1% Gel 100 GM TUBE TP (20:06)
[2024-11-03 01:00] VITALS: RESP 18; TEMP 36.8; O2SAT 94
[2024-11-03 03:10] VITALS: BP 112/77; PULSE 71; RESP 18; TEMP 36.5; O2SAT 92
[2024-11-03] MEDS: Levothyroxine 100 MCG TAB PO (05:51)
[2024-11-03 07:22] LABS: Abs Immature Grans 0.03 10^3/uL (0.0-0.06); Absolute Basophil Count 0.02 10^3/uL (0.0-0.2); Absolute Eosinophil Count 0.19 10^3/uL (0.0-0.7); Absolute Lymphocyte Count 2.22 10^3/uL (1.2-3.4); Absolute Monocyte Count 0.51 10^3/uL (0.1-0.8); Absolute Neutrophil Count 2.12 10^3/uL (1.2-6.7); Basophils % 0.4 %; Eosinophils % 3.7 %; HCT 40.4 % (40.0-50.0); HGB 13.3 g/dL (13.5-17.5); Immature Grans % 0.6 %; Lymphocytes % 43.6 %; MCH 28.4 pg (27.0-33.0); MCHC 32.9 % (32.0-36.0); MCV 86 fL (80-95); MPV 9.7 fL (8.0-11.0); Neutrophils % 41.7 %; Platelet Count 277 10^3/uL (130-400); RBC 4.68 10^6/uL (4.36-5.78); RDW 13.2 % (11.8-14.1); RDW-SD 41.5 fL; WBC 5.09 10^3/uL (4.4-10.8)
[2024-11-03 07:39] VITALS: BP 110/85; PULSE 81; RESP 20; TEMP 36.4; O2SAT 97
[2024-11-03 07:58] LABS: Anion Gap 7.2 mmol/L (3-11); BUN 10 mg/dL (7-18); CO2 26.8 mmol/L (21.0-32.0); CREATININE 0.9 mg/dL (0.70-1.30); Calcium 8.7 mg/dL (8.5-10.1); Chloride 102 mmol/L (98-107); Estimated GFR 95.37 (mL/min/1.73m2); Glucose 86 mg/dL (74-106); Potassium 3.8 mmol/L (3.5-5.1); Sodium 136 mmol/L (136-145)
[2024-11-03] MEDS: Aspirin E.C. 81 MG TABEC PO (08:05)
[2024-11-03] MEDS: buPROPion-CR 150 MG TABCR 300 MG PO (08:06)
[2024-11-03] MEDS: guaiFENesin 600 MG TABCR PO (08:06)
[2024-11-03] MEDS: metFORMIN C.R. 500 MG TABCR 1000 MG PO (08:06)
[2024-11-03] MEDS: Lisinopril 10 MG TAB PO (08:06)
[2024-11-03] MEDS: Acetaminophen 500 MG TAB 1000 MG PO (08:06)
[2024-11-03] MEDS: Benzonatate 100 MG CAP PO ×2 (08:07→14:43)
[2024-11-03] MEDS: risperiDONE 0.25 MG TAB PO (08:07)
[2024-11-03] MEDS: Omeprazole 20 MG CAPCR PO (08:07)
[2024-11-03] MEDS: Sertraline 25 MG TAB PO (08:07)
[2024-11-03] MEDS: Cetirizine 10 MG TAB PO (08:07)
[2024-11-03] MEDS: Enoxaparin 40 MG/0.4 ML SYR SC (08:07)
--- NOTE | 2024-11-03 09:43 | W.PM.PROGNOT ---
Date of Service Date of service: 11/03/24 Time of Service: 09:43 Objective Last Vital Signs Temp 36.4 C L 11/03/24 07:39 Pulse 81 11/03/24 07:39 Resp 20 11/03/24 07:39 BP 110/85 11/03/24 07:39 Pulse Ox 97 11/03/24 07:39 Laboratory Results - last 24 hr 11/03/24 06:56 WBC 5.09 RBC 4.68 Hgb 13.3 L Hct 40.4 MCV 86 MCH 28.4 MCHC 32.9 RDW 13.2 Plt Count 277 MPV 9.7 Immature Gran % 0.6 Neutrophils % 41.7 Lymphocytes % 43.6 Monocytes % 10.0 Eosinophils % 3.7 Basophils % 0.4 Nucleated RBC % 0.0 Absolute Neutrophils 2.12 Absolute Lymphocytes 2.22 Absolute Monocytes 0.51 Absolute Eosinophils 0.19 Absolute Basophils 0.02 Sodium 136 Potassium 3.8 Chloride 102 Carbon Dioxide 26.8 Anion Gap 7.2 BUN 10 Creatinine 0.9 Est GFR (CKD-EPI 2020) 95.37 Glucose 86 Calcium 8.7
[2024-11-03 11:04] VITALS: BP 129/68; PULSE 81; RESP 20; TEMP 36.5; O2SAT 94
--- NOTE | 2024-11-03 11:43 | W.PM.DS.N ---
Date of service: 11/03/24 Time of Service: 11:43 DS: Diagnosis Discharge Diagnosis (1) Sepsis: Status: Acute (2) Pneumonia: Status: Acute (3) Hypoxic respiratory failure: Status: Acute (4) Syncope: Status: Chronic (5) History of prediabetes: Status: Acute (6) GERD (gastroesophageal reflux disease): (7) Hypothyroidism: (8) Hypertension: Status: Chronic (9) On deep vein thrombosis (DVT) prophylaxis: Status: Acute Discharge Plan Disposition Patient Disposition: Home Condition: Improving Discharge Details Reason For Visit: CAP, syncope Admit Date/Time: 11/01/24 17:49 Admit Provider: Vinny Barr Attending Provider: Vinny Barr Primary Care Provider: Leena Berry Hospital Course Hospital Course: This is a 64-year-old male patient with a history of prediabetes, hyperlipidemia, aortic regurgitation, hypertension, presented to the ED via EMS s/p fainting and falling in his bathroom for evaluation of a fall, syncope, and abd pain with cough. The workup in the ED was positive for multifocal pneumonia. CBC and chemistry. In the ED the patient was positive for orthostasis. The patient was admitted to the hospitalist service for sepsis in the setting of community acquired pneumonia , acute hypoxic respiratory failure. URV panel was negative. The patient was treated with IV Azithromcin and ceftriaxone, supplemental oxygen and nebs. On the day of discharged the patient no longer required osygen supplementation, was afebrile and hemodynamically stable w/o orthostasis. LVEF of 55 % as per completed echocardigram w/o acute findings and telemetry monitoring did not show arrhythmia. The patient is discharged on oral azithromycin, cefpodoxime, benzonate and mucinex to completed the treatment for CAP. Follow-up with PCP with 7 days, please. Discussed with Dr. Egan Attica Meds and New Rx's Prescriptions: New azithromycin 250 mg tablet 250 mg PO DAILY 4 Days Qty: 3 0RF Rx Instructions: Already on therapy in hospital 3 doses needed cefpodoxime 200 mg tablet 200 mg PO BID Qty: 6 0RF Rx Instructions: must administer with a meal/food benzonatate 100 mg Capsule 100 mg PO TID Qty: 10 0RF guaifenesin [Mucus Relief ER] 600 mg Tablet Extended Release 12hr 600 mg PO BID Qty: 7 0RF Continued triamcinolone acetonide 0.1 % ointment 1 applic topical BID PRN (Reason: leg scales) Qty: 80 0RF Rx Instructions: To apply thin layer to skin on legs when scaly; USE EMOLLIENT first and shortest duration of steroid meclizine 25 mg tablet 25 mg PO TID PRN (Reason: vertigo) Qty: 21 0RF cetirizine 10 mg tablet 10 mg PO DAILY Qty: 90 3RF triamcinolone acetonide 0.1 % ointment 1 applic topical DAILY Qty: 80 0RF diclofenac sodium [Voltaren Arthritis Pain] 1 % gel 2 g topical BID sertraline 25 mg tablet 25 mg PO DAILY Qty: 90 3RF atorvastatin 20 mg tablet 20 mg PO QHS Qty: 90 3RF lisinopril 10 mg tablet 10 mg PO DAILY Qty: 90 3RF risperidone 0.25 mg tablet 0.25 mg PO DAILY Qty: 90 3RF levothyroxine 100 mcg tablet See Rx Instructions .ROUTE .COMPLEX Qty: 90 3RF Dose Instruction: TAKE ONE TABLET BY MOUTH EVERY DAY Rx Instructions: TAKE ONE TABLET BY MOUTH EVERY DAY bupropion HCl 150 mg tablet sustained-release 12 hr See Rx Instructions .ROUTE .COMPLEX Qty: 270 3RF Dose Instruction: TAKE TWO TABLETS BY MOUTH EVERY MORNING AND ONE TABLET IN THE EVENING Rx Instructions: TAKE TWO TABLETS BY MOUTH EVERY MORNING AND ONE TABLET IN THE EVENING omeprazole 20 mg capsule,delayed release(DR/EC) See Rx Instructions .ROUTE .COMPLEX Qty: 90 3RF Dose Instruction: TAKE ONE CAPSULE BY MOUTH EVERY MORNING Rx Instructions: TAKE ONE CAPSULE BY MOUTH EVERY MORNING metformin 500 mg tablet extended release 24 hr 1,000 mg PO DAILY Qty: 90 3RF naltrexone 50 mg tablet See Rx Instructions .ROUTE .COMPLEX Qty: 90 1RF Dose Instruction: TAKE ONE-HALF TABLET BY MOUTH TWICE A DAY Rx Instructions: TAKE ONE-HALF TABLET BY MOUTH TWICE A DAY ropinirole 1 mg tablet 1 mg PO QHS Qty: 90 3RF Rx Instructions: administer 1-3 hours before bedtime spironolactone 25 mg tablet See Rx Instructions .ROUTE .COMPLEX Qty: 90 3RF Dose Instruction: TAKE ONE TABLET BY MOUTH EVERY DAY Rx Instructions: TAKE ONE TABLET BY MOUTH EVERY DAY cyclobenzaprine 10 mg tablet See Rx Instructions .ROUTE .COMPLEX Qty: 60 0RF Dose Instruction: TAKE ONE TABLET BY MOUTH THREE TIMES A DAY NEEDED FOR MUSCLE SPASMS Rx Instructions: TAKE ONE TABLET BY MOUTH THREE TIMES A DAY NEEDED FOR MUSCLE SPASMS furosemide 20 mg tablet See Rx Instructions .ROUTE .COMPLEX Qty: 90 0RF Dose Instruction: TAKE ONE TABLET BY MOUTH EVERY DAY Rx Instructions: TAKE ONE TABLET BY MOUTH EVERY DAY lidocaine [Lidoderm] 5 % adhesive patch,medicated 1 patch topical DAILY PRNQty: 15 0RF Rx Instructions: leave on most painful area for up to 12 hrs aspirin 81 mg tablet,delayed release (DR/EC) 81 mg PO DAILY Rx Instructions: TAKE ONE TABLET BY MOUTH EVERY DAY Discharge Instructions Activity:: Activity as Tolerated Equipment/Supplies:: No Equipment Needed Diet:: heart healthy - carb control DS: Summary Time Spent with Patient providing and/or coordinating discharge services: Greater than 30 minutes Status at Discharge Functional status at discharge: independent ambulation Overall status at discharge: patient is progressing back to baseline Mental Status: mental status grossly normal Speech and Movement: speech and movement normal Mood: congruent mood Affect: normal affect Quality:SDOH Health Related Social Needs: Health related social needs feeling lonely/isolated (Z60.8), education (Z55.6) Exam Narrative Exam Narrative: Constitutional The patient without acute distress Neuro:alert and oriented X4 ; no neurological focal deficit Chest:Chest is symmetrical and normal appearance Resp:No further wheezing to upper lobes , unlabored breathing Cardio: regular rhythm, S1, S2, no murmur, capillary refill<3 sec., bilateral radial and dorsalis pedis pulses are positive, palpable GI: Abdomen is large not distended, soft and non tender, bowel sounds are present Back/spine/Pelvis: No back tenderness, normal alignment Integumentary: No skin lesions or rash on exposed skin Extremities: strength 5/5 to bilateral lower and upper extremities Psych: RASS 0, congruent mood and normal affect. Psych Mental Status: mental status grossly normal Speech and Movement: speech and movement normal Mood: congruent mood Affect: normal affect DS: Data Vitals/I&O Vitals and I&O: Vital Signs Temperature 36.5 C 11/03/24 11:04 Temperature Source Temporal Artery Scan 11/03/24 11:04 Pulse 81 11/03/24 11:04 Pulse Rhythm Regular 11/01/24 19:55 Pulse 92 H 11/01/24 18:31 Respiratory Rate 20 11/03/24 11:04 Respiratory Effort Normal 11/01/24 19:55 Respiratory Depth Normal 11/01/24 19:55 Respiratory Pattern Normal 11/01/24 19:55 Blood Pressure 129/68 11/03/24 11:04 Blood Pressure Mean 80 11/01/24 18:30 Blood Pressure Position Sitting 11/01/24 13:58 Pulse Oximetry 94 11/03/24 11:04 Oxygen Delivery Method Room Air 11/03/24 11:04 Oxygen Flow Rate 0 11/03/24 11:04 Pain Level 2 11/03/24 08:06 Comment RN notified 11/02/24 15:26 Intake & Output 11/02/24 11/02/24 11/03/24 11:59 23:59 11:59 Intake Total 1360 / 2751.667 1391.667 / 2751.667 240 / 240 Output Total 500 / 1200 700 / 1200 700 / 700 Balance 860 / 1551.667 691.667 / 1551.667 -460 / -460 Intake: IV 1000 / 1671.667 671.667 / 1671.667 Oral 360 / 1080 720 / 1080 240 / 240 Output: Urine 500 / 1200 700 / 1200 700 / 700 Other: Urine Color Yellow Yellow Light [place] Urine Appearance Clear Clear Comment pT voided independently Stool Size Moderate Stool Characteristics Soft Data Completed and Pending Labs on day of discharge: Labs from last 24 hours 11/03/24 06:56 WBC 5.09 RBC 4.68 Hgb 13.3 L Hct 40.4 MCV 86 MCH 28.4 MCHC 32.9 RDW 13.2 Plt Count 277 MPV 9.7 Immature Gran % 0.6 Neutrophils % 41.7 Lymphocytes % 43.6 Monocytes % 10.0 Eosinophils % 3.7 Basophils % 0.4 Nucleated RBC % 0.0 Absolute Neutrophils 2.12 Absolute Lymphocytes 2.22 Absolute Monocytes 0.51 Absolute Eosinophils 0.19 Absolute Basophils 0.02 Sodium 136 Potassium 3.8 Chloride 102 Carbon Dioxide 26.8 Anion Gap 7.2 BUN 10 Creatinine 0.9 Est GFR (CKD-EPI 2020) 95.37 Glucose 86 Calcium 8.7 Preliminary micro results at discharge 11/01/24 15:15 Blood Culture - Preliminary Blood NO GROWTH 24 HOURS 11/01/24 14:35 Blood Culture - Preliminary Blood NO GROWTH 24 HOURS PFSH All Active Problems (Updated 11/02/24 @ 12:39 by Amber Esparza APRN) Hypoxic respiratory failure (Acute) On deep vein thrombosis (DVT) prophylaxis (Acute) Sepsis (Acute) Syncope (Chronic) Pneumonia (Acute) History of prediabetes (Acute) Vertigo (Acute) Peripheral vascular disease, unspecified (Chronic) Wound of left lower extremity (Acute) Eczema (Acute) COVID-19 (Acute) Prediabetes (Acute 01/2019) Hyperlipidemia (Acute) Aortic regurgitation (Acute) Left ventricular hypertrophy (Acute) Fatty infiltration of liver (Acute) Cholelithiasis (Acute) Anterior epistaxis (Acute) Screening for colorectal cancer (Acute) Primary osteoarthritis of right knee (Acute) Injected: 06/26/2019 Primary osteoarthritis of left knee (Acute) Injected: 06/26/2019 Hypertension (Chronic) Insomnia (Acute) Obesity (Chronic) Tear of medial meniscus of left knee (Acute 09/26/19) Status post knee arthroscopy -partial medial meniscectomy and plica excision Medical History Superficial thrombosis of leg (04/05/20) Hypothyroidism Anxiety Depression GERD (gastroesophageal reflux disease) Restless leg syndrome Sleep apnea does not use device Surgical History Hx of oral surgery Pt states gum surgery Hx of shoulder surgery L Shoulder History of arthroscopy of right knee Dr. Woodall Colonoscopy - [facility] [place] (03/13/16) Social History Smoking/Tobacco Use Status: Former Tobacco Use Quit Date: 08/16/82 Smoking risk assessment performed?: Yes Alcohol Intake: former Drug use: Never Substance use type: does not use Adopted: Yes Caregiver/Support person: Yes Foster care: Yes Housing: apartment Number of Children: 3 number of grandchildren: 8 Communication Needs: None Education Level: high school Do you need help understanding health information?: Never current occupation: unemployed Pets and animals: Yes Pets and animals: dog(s) Sexually active: No Do you think of yourself as: straight/heterosexual Current gender identity: male What is your relationship status?: How often do you talk on the phone with friends or family?: three or more times per week How often do you get together with friends or relatives?: twice per week Do you belong to any clubs or organized social groups?: no Panel score (0-1 are the most socially isolated patients): 1 What type of physical activity do you participate in: walking Duration: 15-30 minutes/day Frequency: daily Seatbelt use: never Helmet use: No Drive intox or ride w/intox vending route driver: No Working smoke detector in home: Yes Carbon monox detector in home: Yes Do you feel safe at home: Yes Do you feel safe in your relationship?: Yes Victim of physical abuse: No Victim of emotional abuse: No Additional Social history: lives alone Time Spent with Patient Time Spent with Patient: 70-84 minutes4 Time was spent: preparing to see the patient(eg.review tests), obtaining and/or reviewing separately otained hiistory, ordering medications,tests, procedures, referring, communicating with other health care process manager, indepentently interpreting results, counseling the patient and care coordination
--- NOTE | 2024-11-03 13:51 | PDOC.CMDIS ---
Date of service: 11/03/24 Time of Service: 13:51 LACE Index Scoring Tool Questions: Length of Stay (in days): 2 Was the patient admitted via the E.D.?: Yes E.D. Visits: 1 Answers: Total Score: 6 Risk of Readmission: Low Risk Care Management Discharge Plan Reason for Hospitalization: CAP, syncope Discharge Plan: Milind will return home today with no new services. CM sent a referral to [facility] for additional community support. He will transport via [facility] private vehicle, coordinated by CM. He will follow up with his PCP and discharge plan of care. He is happy to be going home. Patient/Family Education Needs: Review discharge instructions and limitations, discussion of self care needs including ask me three. Services Needed at Discharge: Transportation ([facility] private vehicle) SDOH Health Related Social Needs: Health related social needs feeling lonely/isolated (Z60.8), education (Z55.6) Care Management Referrals: [facility]
== END 2024-11-03 15:33 | disposition home or self-care (01) | DRG 871 ==
LOC: ER 17:23 → MS 18:46
PROVIDERS: Admitting Provider Family Medicine; Emergency Provider Emergency Medicine; PCP Nurse Practitioner; Responsible Provider Nurse Practitioner Acute Care; Visit Provider Family Medicine
DX: A41.9 Sepsis, unspecified organism (principal); J18.9 Pneumonia, unspecified organism; J96.01 Acute respiratory failure with hypoxia; Z68.42 Body mass index [BMI] 45.0-49.9, adult; R55 Syncope and collapse; R73.03 Prediabetes; Z79.84 Long term (current) use of oral hypoglycemic drugs; K21.9 Gastro-esophageal reflux disease without esophagitis; I10 Essential (primary) hypertension; E03.9 Hypothyroidism, unspecified; Z79.899 Other long term (current) drug therapy; I35.1 Nonrheumatic aortic (valve) insufficiency; W19.XXXA Unspecified fall, initial encounter; I73.9 Peripheral vascular disease, unspecified; K76.0 Fatty (change of) liver, not elsewhere classified; E66.9 Obesity, unspecified; G47.00 Insomnia, unspecified; M17.0 Bilateral primary osteoarthritis of knee
CPT/HCPCS: 00123; 36415; 71275; 74177; 80048; 80053; 83690; 87040; 87637; 93005; 93306; 96365; 96367; 96375; 99285; J1650; 70450; 81003; 81015; 83605; 83735; 84484; 85025; 93010; 94667; 99223; 99233; 99239; J0131; J0456; J0696; J2405; J3490

== ENCOUNTER 2024-11-27 12:44 | Outpatient (CLI) | payer MEDICARE, SELFPAY | END 2024-11-27 12:45 | disposition home or self-care (01) | PROVIDERS: PCP Nurse Practitioner; Visit Provider Nurse Practitioner Family | DX: R55 Syncope and collapse (principal) | CPT/HCPCS: 93246 ==

== ENCOUNTER → 2024-11-30 09:20 | Outpatient (BNVA) | payer MEDICARE, MEDICAID, SELFPAY | PROVIDERS: PCP Nurse Practitioner; Referring Provider Nurse Practitioner Family; Visit Provider Psychiatry & Neurology Neurology | DX: H81.10 Benign paroxysmal vertigo, unspecified ear (principal); D32.0 Benign neoplasm of cerebral meninges; R55 Syncope and collapse; R26.89 Other abnormalities of gait and mobility; M17.11 Unilateral primary osteoarthritis, right knee; M17.12 Unilateral primary osteoarthritis, left knee; I10 Essential (primary) hypertension; R73.03 Prediabetes | CPT/HCPCS: 99215 ==

== ENCOUNTER 2024-12-01 00:03 | Outpatient (CLI) | payer MEDICARE, SELFPAY ==
--- NOTE | 2024-12-01 07:15 | DI.MRI_ITS ---
Exam(s) MR BRAIN WO/W EXAM: MR BRAIN WO/W CLINICAL HISTORY: Characterize R parietal brain mass,CEREBRAL MENINGIOMA TECHNIQUE: Multiplanar multisequence MRI of the brain was performed. Both noninfused and contrast i nfused sequences were performed. IV Contrast injected was 20 cc Dotarem. COMPARISON: CT CT HEAD WO from 11/01/2024 FINDINGS: CEREBRAL PARENCHYMA: No evidence of intracranial hemorrhage. There is an extra-axial dural-based mass over the right convexity frontal temporal lobe region which corresponds to the recently described finding on the CT scan of 11/01/2024, unchanged in size, measur ing 2.8 cm AP by 2.9 cm craniocaudal by 0.9 cm wide. This is bright on precontrast T1 weighted image s and relatively isointense to brain on T2 images and hypointense on FLAIR images. Following contrast injection is difficult to determine if there is contrast uptake within this extra-axial lesion the b ecause it is hyperdense pre contrast injection. Nevertheless, this finding as the appearance of a pro bable atypical meningioma. There are multiple foci of FLAIR bright periventricular signal abnormality consistent with chronic sm all vessel disease. No evidence of restricted diffusion. DWI: No areas of restricted diffusion to suggest acute ischemic event. SWI: No microhemorrhages evident. There are no ring enhancing lesions in the brain. There is no abnormal meningeal enhancement. PITUITARY GLAND: No mass nor parasellar abnormality. No obvious abnormality in the cavernous sinuses. FLOW VOIDS: The expected flow void are noted. No evidence of obvious aneurysm nor obvious vascular ma lformation. PARANASAL SINUSES: The visualized paranasal sinuses appear unremarkable. ORBITS: No obvious abnormal findings. IMPRESSION: 1. Extra-axial dural-based mass on the inner table of the skull over the right convexity measuring 2. 8 x 2.9 x 0.9 cm and previously shown to be calcified on recent CT scan. This is most probably a mild ly atypical meningioma. There is no adjacent sulcal effacement. 2. There are patchy foci of signal abnormality in the periventricular white matter consistent with ch ronic small vessel disease. There are no areas of restricted diffusion to suggest acute infarct. DATA REPOSITORY:
[2024-12-01] MEDS: Normal Saline Flush 10 ML SYR IVP (11:01)
[2024-12-01] MEDS: Gadoterate meglumine 20 ML SYRINGE IVP (11:02)
--- NOTE | 2024-12-01 13:55 | DI.VRAD_ITS ---
PROCEDURE INFORMATION: Exam: MR Head Without and With Contrast Exam date and time: 12/01/2024 10:55 AM Age: 64 years old Clinical indication: Other: Brain mass TECHNIQUE: Imaging protocol: Magnetic resonance imaging of the head without and with contrast. Contrast material: DOTAREM; Contrast volume: 20 ml; Contrast route: INTRAVENOUS (IV); COMPARISON: CT HEAD WO 11/01/2024 3:47 PM FINDINGS: Brain: Mild parenchymal volume loss. No midline shift. Mild bilateral periventricular and subcortical white matter T2 hyperintensities are present compatible with small-vessel ischemic disease. No acute infarct. No extra-axial fluid collection. No parenchymal hemorrhage. Cerebral ventricles: Normal. No ventriculomegaly. Bones: Focal calvarial thickening/extra-axial mass measuring 2.5 x 2.4 x 0.8 cm on the inner table of the skull overlying the anterior portion of the right sylvian fissure. No significant mass effect on brain parenchyma. This was seen to be densely calcified on CT. Paranasal sinuses: Normal as visualized. No acute sinusitis. Mastoid air cells: Normal as visualized. No mastoid effusion. Orbital cavities: Unremarkable. Soft tissues: Unremarkable. IMPRESSION: Focal calvarial thickening/extra-axial mass measuring 2.5 x 2.4 x 0.8 cm on the inner table of the skull overlying the anterior portion of the right sylvian fissure. No significant mass effect on brain parenchyma. This was seen to be densely calcified on CT. Findings consistent with meningioma. Dictated and Authenticated by: Tom Peacock MD. Orderin Deny Galindo MD
== END 2024-12-01 00:23 ==
PROVIDERS: PCP Nurse Practitioner; Visit Provider Nurse Practitioner Adult Health
DX: D32.0 Benign neoplasm of cerebral meninges (principal); R90.89 Other abnormal findings on diagnostic imaging of central nervous system
CPT/HCPCS: 70553

== ENCOUNTER 2024-12-06 03:19 | Outpatient (CLI) | payer MEDICARE, SELFPAY ==
[2024-12-06 10:55] LABS: Calculated LDL 81 mg/dL (<100); Cholesterol 150 mg/dL (<200); HDL Cholesterol 57 mg/dL (>or=40); Triglyceride 61 mg/dL (<150)
== END 2024-12-06 03:20 | disposition home or self-care (01) ==
LOC: LBO 03:19
PROVIDERS: PCP Nurse Practitioner; Visit Provider Nurse Practitioner Family
DX: E03.9 Hypothyroidism, unspecified (principal); E78.5 Hyperlipidemia, unspecified
CPT/HCPCS: 80061; 84443

== ENCOUNTER 2024-12-12 06:52 | Outpatient (CLI) | payer MEDICARE, SELFPAY ==
--- NOTE | 2024-12-12 09:14 | W.CARDEVENT ---
Date of service: 12/12/24 Time of Service: 09:14 Cardiac Event Recorder Referring Provider:: Alysia Castro Indications:: Syncope Cardiac Event Note: This is a cardiac event monitor. Patient was monitored for 1 day and 21 hours. Rhythm throughout was sinus with an average heart rate of 101. Minimum was 63, maximum 155. There were very rare isolated atrial and ventricular ectopic beats. There was no atrial fibrillation, no SVT, no high-grade AV block, no pauses greater than 3 seconds. No symptoms were reported
== END 2024-12-12 06:53 | disposition home or self-care (01) ==
LOC: CARDOPNVT 06:52
PROVIDERS: PCP Nurse Practitioner; Visit Provider Internal Medicine Cardiovascular Disease
DX: R55 Syncope and collapse (principal)
CPT/HCPCS: 93248

== ENCOUNTER → 2025-06-19 00:45 | Outpatient (CLI) | payer MEDICARE, SELFPAY ==
--- NOTE | 2025-06-19 07:21 | DI.MRI_ITS ---
Exam(s) MR BRAIN WO/W EXAM: MR BRAIN WO/W CLINICAL HISTORY: Monitoring meningioma for growth,calcified cerebral meningioma TECHNIQUE: Multiplanar multisequence MRI of the brain was performed on a 1.5 katelynn unit. Both noninfused and contrast infused sequences were performed. IV Contrast injected was 20 cc Dotarem. COMPARISON: MR MR BRAIN WO/W from 12/01/2024 FINDINGS: CEREBRAL PARENCHYMA: The previously described extra-axial dural-based mass on the inner table of the skull over the right convexity is again noted, unchanged in size and configuration and signal characteristics.. Again measures 2.8 cm AP by 2.9 cm craniocaudal by 0.8 cm at its widest. No significant adjacent brain edema. There are no other for similar findings elsewhere in the brain. There is no significant focal signal abnormality in the cerebellar hemispheres nor within the rogerio, midbrain, and thalami. Ventricles are not enlarged or shifted. There are multiple foci FLAIR bright periventricular signal abnormality which I would appear unchanged from previous and are not associated with hemorrhage, surrounding edema, nor restricted diffusion. DWI: No areas of restricted diffusion to suggest acute ischemic event. SWI: No microhemorrhages evident. There are no ring enhancing lesions in the brain.. PITUITARY GLAND: No mass nor parasellar abnormality. No obvious abnormality in the cavernous sinuses. FLOW VOIDS: The expected flow void are noted. No evidence of obvious aneurysm nor obvious vascular malformation. PARANASAL SINUSES: The visualized paranasal sinuses appear unremarkable. ORBITS: No obvious abnormal findings. IMPRESSION: 1. Stable appearance of the previously described right convexity extra-axial dural-based mass, unchanged in size in signal characteristics from the prior MRI scan of 12/01/2024 2. Stable appearance of some periventricular white matter foci of signal abnormality most probably consistent with chronic ischemic changes. There are no areas of restricted diffusion in the brain to suggest acute infarct. No evidence of hemorrhage. DATA REPOSITORY:
[2025-06-19] MEDS: Gadoterate meglumine 20 ML SYRINGE IVP (14:47)
[2025-06-19] MEDS: Normal Saline Flush 10 ML SYR IVP (14:48)
== END ==
LOC: DI 00:45
PROVIDERS: PCP Nurse Practitioner Family; Visit Provider Psychiatry & Neurology Neurology
DX: D32.0 Benign neoplasm of cerebral meninges (principal)
CPT/HCPCS: 70553

== ENCOUNTER 2025-07-07 11:59 | Observation (INO) | payer MEDICARE, SELFPAY ==
[2025-07-07] VITALS (40 sets, daily range): BP systolic 103–153; BP diastolic 60–73; PULSE 99–135; RESP 16–29; TEMP 36.6–37.2; O2SAT 85–100
--- NOTE | 2025-07-07 12:15 | RT.EKG_ITS ---
APPROVED REPORT Exam: Resting ECG Reason for Exam: NOVOA Patient Location: E HR:119 bpm ECG Measurements Heart Rate 119 AXIS MO 168 P 58 QRSd 80 QRS 11 QT 294 T 103 QTc 414 Conclusion Sinus tachycardia...rate> 99 Nonspecific T abnormalities, lateral leads...T <-0.10mV, I aVL V5 V6 Physician: No STEMI
[2025-07-07 13:11] LABS: Abs Immature Grans 0.14 10^3/uL (0.0-0.06); HCT 35.1 % (40.0-50.0); HGB 10.8 g/dL (13.5-17.5); Immature Grans % 0.8 %; MCH 22.1 pg (27.0-33.0); MCHC 30.8 % (32.0-36.0); MCV 72 fL (80-95); MPV 8.6 fL (8.0-11.0); RBC 4.89 10^6/uL (4.36-5.78); RDW 17.5 % (11.8-14.1); RDW-SD 44.5 fL; WBC 17.72 10^3/uL (4.4-10.8)
[2025-07-07 13:26] LABS: INR 1.1 (0.9-1.1); PTT Activated 26.3 sec (20.6-30.2); Prothrombin Time 10.8 sec (9.1-11.1)
[2025-07-07 13:28] LABS: Troponin I 4 ng/L (<54)
[2025-07-07 13:29] LABS: ALT 14 U/L (10-49); AST 12 U/L (<34); Albumin 4.2 g/dL (3.4-5.0); Alkaline Phosphatase 109 U/L (46-116); Anion Gap 9.3 mmol/L (3-11); BUN 15 mg/dL (9-23); Bilirubin, Total 0.50 mg/dL (0.2-1.2); CO2 25.0 mmol/L (20.0-31.0); Calcium 9.2 mg/dL (8.3-10.6); Chloride 98 mmol/L (98-107); Glucose 141 mg/dL (74-106); Potassium 4.3 mmol/L (3.5-5.1); Sodium 132 mmol/L (136-145); Total Protein 7.8 g/dL (5.7-8.2)
[2025-07-07 13:31] LABS: TSH (W/Ref FT4) 1.72 uIU/mL (0.55-4.78)
[2025-07-07 13:46] LABS: Microcytosis 2+; Platelet Count 515 10^3/uL (130-400)
[2025-07-07 13:47] LABS: D-Dimer 3990 ng/mlFEU (<500)
--- NOTE | 2025-07-07 13:55 | W.ED.GENAD ---
Discharge Plan Disposition Patient Disposition: Admit to [facility] Discharge Details Clinical Impression: Pulmonary embolism, DVT (deep venous thrombosis), Leukocytosis, MILAGROS (acute kidney injury) Primary Care Provider: Alysia Castro ED Provider: Zuly Forrest Home Meds and New Rx's Prescriptions: No Action triamcinolone acetonide 0.1 % cream 1 applic topical BID Qty: 80 1RF trazodone 50 mg tablet 25 mg PO DAILY Qty: 14 2RF cetirizine 10 mg tablet 10 mg PO DAILY Qty: 90 3RF semaglutide (weight loss) 1.7 mg/0.75 mL pen injector 1.7 mg subcut QWEEK Qty: 3 0RF diclofenac sodium [Voltaren Arthritis Pain] 1 % gel 2 g topical BID atorvastatin 20 mg tablet 20 mg PO QHS Qty: 90 3RF ropinirole 1 mg tablet 1 mg PO QHS Qty: 90 3RF Rx Instructions: administer 1-3 hours before bedtime spironolactone 25 mg tablet See Rx Instructions .ROUTE .COMPLEX Qty: 90 3RF Dose Instruction: TAKE ONE TABLET BY MOUTH EVERY DAY Rx Instructions: TAKE ONE TABLET BY MOUTH EVERY DAY naltrexone 50 mg tablet See Rx Instructions .ROUTE .COMPLEX Qty: 90 1RF Dose Instruction: TAKE ONE-HALF TABLET BY MOUTH TWICE A DAY Rx Instructions: TAKE ONE-HALF TABLET BY MOUTH TWICE A DAY lisinopril 10 mg tablet See Rx Instructions .ROUTE .COMPLEX Qty: 90 3RF Dose Instruction: TAKE ONE TABLET BY MOUTH EVERY DAY Rx Instructions: TAKE ONE TABLET BY MOUTH EVERY DAY sertraline 25 mg tablet See Rx Instructions .ROUTE .COMPLEX Qty: 90 0RF Dose Instruction: TAKE ONE TABLET BY MOUTH EVERY DAY Rx Instructions: TAKE ONE TABLET BY MOUTH EVERY DAY risperidone 0.25 mg tablet See Rx Instructions .ROUTE .COMPLEX Qty: 90 3RF Dose Instruction: TAKE ONE TABLET BY MOUTH EVERY DAY Rx Instructions: TAKE ONE TABLET BY MOUTH EVERY DAY levothyroxine 100 mcg tablet See Rx Instructions .ROUTE .COMPLEX Qty: 90 3RF Dose Instruction: TAKE ONE TABLET BY MOUTH EVERY DAY Rx Instructions: TAKE ONE TABLET BY MOUTH EVERY DAY furosemide 20 mg tablet See Rx Instructions .ROUTE .COMPLEX Qty: 90 3RF Dose Instruction: TAKE ONE TABLET BY MOUTH EVERY DAY Rx Instructions: TAKE ONE TABLET BY MOUTH EVERY DAY cyclobenzaprine 10 mg tablet See Rx Instructions .ROUTE .COMPLEX Qty: 60 2RF Dose Instruction: TAKE ONE TABLET BY MOUTH THREE TIMES A DAY NEEDED FOR MUSCLE SPASMS Rx Instructions: TAKE ONE TABLET BY MOUTH THREE TIMES A DAY NEEDED FOR MUSCLE SPASMS lorazepam 0.5 mg tablet 0.5 mg PO ONCE PRN (Reason: anxiety/claustrophobia) Qty: 2 0RF Rx Instructions: Take one tablet 30min prior to MRI. Ok to take second at time of MRI if still anxious. Do not drive after taking. bupropion HCl 150 mg tablet sustained-release 12 hr See Rx Instructions .ROUTE .COMPLEX Qty: 270 3RF Dose Instruction: TAKE TWO TABLETS BY MOUTH EVERY MORNING AND ONE TABLET IN THE EVENING Rx Instructions: TAKE TWO TABLETS BY MOUTH EVERY MORNING AND ONE TABLET IN THE EVENING omeprazole 20 mg capsule,delayed release(DR/EC) See Rx Instructions .ROUTE .COMPLEX Qty: 90 3RF Dose Instruction: TAKE ONE CAPSULE BY MOUTH EVERY MORNING Rx Instructions: TAKE ONE CAPSULE BY MOUTH EVERY MORNING metformin 500 mg tablet extended release 24 hr 1,000 mg PO DAILY Qty: 180 3RF lidocaine [Lidoderm] 5 % adhesive patch,medicated 1 patch topical DAILY PRNQty: 15 0RF Rx Instructions: leave on most painful area for up to 12 hrs aspirin 81 mg tablet,delayed release (DR/EC) 81 mg PO DAILY Rx Instructions: TAKE ONE TABLET BY MOUTH EVERY DAY HPI General Date/Time Provider Initiated Documentation: 07/07/25 12:13. HPI Narrative: Milind is a 64-year-old male who presents to the emergency department today for evaluation of left leg pain from his midthigh to his foot accompanied by shortness of breath on exertion x 2 to 3 weeks. Admits that he feels dizzy when his leg pain gets really bad, but otherwise does not any lightheadedness, fever/chills, chest pain, shortness of breath at rest, nausea/vomiting, abdominal pain, change in bowel or bladder function, recent injury. Denies history of cancer, immobility/surgery, blood clots, hormone use. PMH significant for hypertension, HLD, obesity, prediabetes, peripheral vascular disease, aortic regurgitation/LV hypertrophy. He also reports a history of a brain tumor that they are currently monitoring (after reviewing MRI records rom 06/19/25, this is noted to be a stable extra-axial dural-based mass on the inner table of the skull over the right convexity; diagnosed as a calcified cerebral meningioma) Related Data Home Medications ?Medication ?Instructions ?Recorded ?Confirmed lidocaine 5 % topical patch 1 patch topical DAILY PRN #15 ea 04/04/23 07/07/25 (Lidoderm) diclofenac sodium 1 % topical gel 2 g topical BID 06/30/23 07/07/25 (Voltaren Arthritis Pain) atorvastatin 20 mg tablet 20 mg PO QHS #90 tabs 01/21/24 07/07/25 cetirizine 10 mg tablet 10 mg PO DAILY #90 tabs 06/13/24 07/07/25 ropinirole 1 mg tablet 1 mg PO QHS #90 tabs 07/24/24 07/07/25 spironolactone 25 mg tablet See Rx Instructions .Route 08/01/24 07/07/25 .COMPLEX #90 tabs aspirin 81 mg tablet,delayed 81 mg PO DAILY 11/02/24 07/07/25 release naltrexone 50 mg tablet See Rx Instructions .Route 01/09/25 07/07/25 .COMPLEX #90 tabs lisinopril 10 mg tablet See Rx Instructions .Route 02/26/25 07/07/25 .COMPLEX #90 tabs trazodone 50 mg tablet 25 mg (1/2 x 50 mg) PO DAILY 03/28/25 07/07/25 insomnia #14 tabs triamcinolone acetonide 0.1 % 1 applic topical BID rash on arms 03/28/25 07/07/25 topical cream #80 grams sertraline 25 mg tablet See Rx Instructions .Route 04/02/25 07/07/25 .COMPLEX #90 tabs risperidone 0.25 mg tablet See Rx Instructions .Route 04/10/25 07/07/25 .COMPLEX #90 tabs cyclobenzaprine 10 mg tablet See Rx Instructions .Route 05/02/25 07/07/25 .COMPLEX #60 tabs furosemide 20 mg tablet See Rx Instructions .Route 05/02/25 07/07/25 .COMPLEX #90 tabs levothyroxine 100 mcg tablet See Rx Instructions .Route 05/02/25 07/07/25 .COMPLEX #90 tabs lorazepam 0.5 mg tablet 0.5 mg PO ONCE PRN 05/15/25 07/07/25 anxiety/claustrophobia #2 tabs bupropion HCl 150 mg tablet,12 hr See Rx Instructions .Route 05/21/25 07/07/25 sustained-release .COMPLEX #270 tabs omeprazole 20 mg capsule,delayed See Rx Instructions .Route 05/22/25 07/07/25 release .COMPLEX #90 caps metformin 500 mg tablet,extended 1,000 mg (2 x 500 mg) PO DAILY 06/11/25 07/07/25 release 24 hr #180 tabs semaglutide (weight loss) 1.7 1.7 mg (0.75 mL) subcut QWEEK #3 mL 06/27/25 07/07/25 mg/0.75 mL subcutaneous pen injector Previous Rx's ?Medication ?Instructions ?Recorded lidocaine 5 % topical patch 1 patch topical DAILY PRN #15 ea 04/04/23 (Lidoderm) atorvastatin 20 mg tablet 20 mg PO QHS #90 tabs 01/21/24 cetirizine 10 mg tablet 10 mg PO DAILY #90 tabs 06/13/24 ropinirole 1 mg tablet 1 mg PO QHS #90 tabs 07/24/24 spironolactone 25 mg tablet See Rx Instructions .Route 08/01/24 .COMPLEX #90 tabs naltrexone 50 mg tablet See Rx Instructions .Route 01/09/25 .COMPLEX #90 tabs lisinopril 10 mg tablet See Rx Instructions .Route 02/26/25 .COMPLEX #90 tabs trazodone 50 mg tablet 25 mg (1/2 x 50 mg) PO DAILY 03/28/25 insomnia #14 tabs triamcinolone acetonide 0.1 % 1 applic topical BID rash on arms 03/28/25 topical cream #80 grams sertraline 25 mg tablet See Rx Instructions .Route 04/02/25 .COMPLEX #90 tabs risperidone 0.25 mg tablet See Rx Instructions .Route 04/10/25 .COMPLEX #90 tabs cyclobenzaprine 10 mg tablet See Rx Instructions .Route 05/02/25 .COMPLEX #60 tabs furosemide 20 mg tablet See Rx Instructions .Route 05/02/25 .COMPLEX #90 tabs levothyroxine 100 mcg tablet See Rx Instructions .Route 05/02/25 .COMPLEX #90 tabs lorazepam 0.5 mg tablet 0.5 mg PO ONCE PRN 05/15/25 anxiety/claustrophobia #2 tabs bupropion HCl 150 mg tablet,12 hr See Rx Instructions .Route 05/21/25 sustained-release .COMPLEX #270 tabs omeprazole 20 mg capsule,delayed See Rx Instructions .Route 05/22/25 release .COMPLEX #90 caps metformin 500 mg tablet,extended 1,000 mg (2 x 500 mg) PO DAILY 06/11/25 release 24 hr #180 tabs semaglutide (weight loss) 1.7 1.7 mg (0.75 mL) subcut QWEEK #3 mL 06/27/25 mg/0.75 mL subcutaneous pen injector Allergies Allergy/AdvReac Type Severity Reaction Status Date / Time Penicillins Allergy Severe Skin Rash, Verified 07/07/25 12:20 TONGUE SWELLING Sulfa (Sulfonamide Allergy Intermediate Skin Rash Verified 07/07/25 12:20 Antibiotics) clindamycin Allergy Mild unknown Verified 07/07/25 12:20 oxacillin Allergy Mild unknown Verified 07/07/25 12:20 General Stated Complaint: Vascular ZANE: 3 Exam Const General: cooperative, healthy appearing, comfortable and well developed Nutritional Appearance: obese Orientation: alert and oriented x3 Resp Effort & Inspection: normal respiratory effort and able to speak in complete sentences Auscultation: clear to auscultation bilaterally GI Inspection: normal to inspection and obesity Palpation: soft, not firm and nontender Extrem Right lower extremity: normal to inspection Left lower extremity: full ROM, normal capillary refill, edema (mild, diffuse), hip/thigh Details: tenderness, knee Details: tenderness, lower leg Details: tenderness, ankle Details: tenderness and foot Details: vascular exam Details: dorsalis pedis pulse present and normal capillary refill and motor-sensory exam Details: light-touch normal Course Vital Signs Vital signs: Vital Signs Temperature 36.9 C 07/07/25 12:17 Pulse 125 H 07/07/25 12:17 Respiratory Rate 22 07/07/25 12:17 Blood Pressure 131/63 07/07/25 12:17 Pulse Oximetry 98 07/07/25 12:17 Temperature 36.9 C 07/07/25 12:17 Temperature Source Tympanic 07/07/25 12:17 Pulse 125 H 07/07/25 12:17 Respiratory Rate 25 H 07/07/25 13:52 Respiratory Effort Short of Breath, Incrsd Work of Breathing 07/07/25 13:52 Blood Pressure 131/63 07/07/25 12:17 Blood Pressure Position Sitting 07/07/25 12:17 Pulse Oximetry 98 07/07/25 12:17 Oxygen Delivery Method Room Air 07/07/25 12:17 Oxygen Flow Rate 0 07/07/25 12:17 Pain Level 10 07/07/25 12:17 Lab/Test Results Lab/Test Results: Laboratory Tests Range/Units 07/07/25 13:04 WBC (4.4-10.8) 10^3/uL 17.72 H RBC (4.36-5.78) 10^6/uL 4.89 Hgb (13.5-17.5) g/dL 10.8 L Hct (40.0-50.0) % 35.1 L MCV (80-95) fL 72 L MCH (27.0-33.0) pg 22.1 L MCHC (32.0-36.0) % 30.8 L RDW (11.8-14.1) % 17.5 H Plt Count (130-400) 10^3/uL 515 H MPV (8.0-11.0) fL 8.6 Immature Gran % % 0.8 Neutrophils % % 78.0 Lymphocytes % % 9.7 Monocytes % % 8.7 Eosinophils % % 2.3 Basophils % % 0.5 Nucleated RBC % (0.0-0.3) % 0.0 Absolute Neutrophils (1.2-6.7) 10^3/uL 13.82 H Absolute Lymphocytes (1.2-3.4) 10^3/uL 1.72 Absolute Monocytes (0.1-0.8) 10^3/uL 1.54 H Absolute Eosinophils (0.0-0.7) 10^3/uL 0.41 Absolute Basophils (0.0-0.2) 10^3/uL 0.09 RBC Morphology See Below Microcytosis 2+ PT (9.1-11.1) sec 10.8 INR (0.9-1.1) 1.1 APTT (20.6-30.2) sec 26.3 Sodium (136-145) mmol/L 132 L Potassium (3.5-5.1) mmol/L 4.3 Chloride (98-107) mmol/L 98 Carbon Dioxide (20.0-31.0) mmol/L 25.0 Anion Gap (3-11) mmol/L 9.3 BUN (9-23) mg/dL 15 Creatinine (0.73-1.18) mg/dL 1.22 H Est GFR (CKD-EPI 2020) (mL/min/1.73m2) 59.67 Glucose (74-106) mg/dL 141 H Calcium (8.3-10.6) mg/dL 9.2 Total Bilirubin (0.2-1.2) mg/dL 0.50 AST (<34) U/L 12 ALT (10-49) U/L 14 Alkaline Phosphatase (46-116) U/L 109 Troponin I (<54) ng/L 4 NT-Pro-B Natriuret Pep (<300) pg/mL 110 Total Protein (5.7-8.2) g/dL 7.8 Albumin (3.4-5.0) g/dL 4.2 TSH (0.55-4.78) uIU/mL 1.72 Medical Decision Making Medical Records Medical records narrative: Milind is a 64-year-old male who presents to the emergency department today for evaluation of left leg pain from his midthigh to his foot accompanied by shortness of breath on exertion x 2 to 3 weeks. Admits that he feels dizzy when his leg pain gets really bad, but otherwise does not any lightheadedness, fever/chills, chest pain, shortness of breath at rest, nausea/vomiting, abdominal pain, change in bowel or bladder function, recent injury. Denies history of cancer, immobility/surgery, blood clots, hormone use. PMH significant for hypertension, HLD, obesity, prediabetes, peripheral vascular disease, aortic regurgitation/LV hypertrophy. He also reports a history of a brain tumor that they are currently monitoring (after reviewing MRI records rom 06/19/25, this is noted to be a stable extra-axial dural-based mass on the inner table of the skull over the right convexity; diagnosed as a calcified cerebral meningioma) Physical exam remarkable for significant tenderness all over left leg. Mild generalized edema noted compared to contralateral leg. Distal pulses palpable left foot, + dorsalis pedis pulse with brisk cap refill. Easy work of breathing, lung sounds clear bilaterally. Normal heart sounds, tachycardia noted. Abdomen soft, obesely distended, nontender to palpation. DDx includes but is not limited to: PE/DVT, ACS, cardiac arrhythmia, CHF, pneumonia, liver or kidney dysfunction, significant electrolyte balance, peripheral vascular disease. No overlying skin changes consistent with cellulitis. I independently interpreted the following tests: CBC notable for significant leukocytosis, white cell count 17.76. Mild anemia noted, 10.8 and 35.1 (decreased from 11/03/2024 was 13.3/40.5). Mild thrombocytosis also noted (pls 515). CMP notable for mild hypokalemia, sodium 132. Creatinine slightly elevated to 1.22 (baseline 0.9). Troponins flat. Coags and TSH unremarkable. EKG shows sinus. Troponin 19, no changes consistent with acute ischemia. CT notable for small right lower lobe pulmonary emboli, no evidence of right heart strain. Also incidentally noted for gallstones. History and presentation consistent with PEs with probable DVT to left leg, ultrasound not available today. Will initiate Eliquis. Milind did become significantly tachypneic and tachycardic with ambulation. Discussed case with Dr. Syed and Amber Esparza APRN, hospitalist team. Patient to be admitted for pulmonary emboli and likely DVT. He is agreeable with plan of care. Imaging Data Radiologic Study: Radiologist's impression: Exam(s) CT CHEST PE CTA EXAM: CT CHEST PE CTA CLINICAL HISTORY: NOVOA, L leg swelling concerning for DVT. TECHNIQUE: Imaging Protocol: Axial CT angiography was performed with multi-slice acquisition and multi-planar reconstructions as well as axial, coronal and sagittal MIP reconstructions. Computer aided detection (CAD) was utilized. CONTRAST MATERIAL: Intravenous: Omnipaque 350 Contrast volume:100 ml COMPARISON: CT CT CHEST PE ABD PELVIS W from 11/01/2024 FINDINGS: Pulmonary Arteries: There are multiple filling defects in noted in branch vessels of the right lower lobe pulmonary arteries Mediastinum and Shahnaz: No dominant adenopathy or fluid collection. Pulmonary parenchyma: No consolidation or dominant measurable mass. Pleura: No effusion or pneumothorax. Heart: The heart is not dilated. No evidence of right heart strain. Mild coronary artery calcifications are seen. Aorta: Thoracic aorta non-dilated. No dissection. Mild atherosclerotic changes. Upper abdomen: No acute findings. Cholelithiasis. Bones: Flowing osteophytes consistent with DISH. No acute fractures. Tubes, Catheters, and Lines: None Soft tissues: Unremarkable. IMPRESSION: Emboli are noted in right lower lobe branch vessels. No evidence of right heart strain. The lungs are clear. Quality:SDOH Health Related Social Needs: Health related social needs lonely/isolated education PFSH All Active Problems (Updated 07/07/25 @ 17:32 by Zuly Ayers) MILAGROS (acute kidney injury) (Acute) Leukocytosis (Acute) Discharge planning issues (Acute) Diabetes (Chronic) DVT (deep venous thrombosis) (Chronic) Edema of left lower extremity (Acute) Pulmonary embolism (Chronic) Hypothyroidism (Chronic) Depression (Chronic) Balance disorder (Acute) BPPV (benign paroxysmal positional vertigo) (Acute) Calcified cerebral meningioma (Acute ~10/2024) Vertigo (Acute) Peripheral vascular disease, unspecified (Chronic) Eczema (Acute) Prediabetes (Acute 01/2019) Hyperlipidemia (Acute) Aortic regurgitation (Acute) Left ventricular hypertrophy (Acute) Fatty infiltration of liver (Acute) Cholelithiasis (Acute) Anterior epistaxis (Acute) Primary osteoarthritis of right knee (Acute) Injected: 06/26/2019 Primary osteoarthritis of left knee (Acute) Injected: 06/26/2019 Hypertension (Chronic) Insomnia (Acute) Obesity (Chronic) Tear of medial meniscus of left knee (Acute 09/26/19) Status post knee arthroscopy -partial medial meniscectomy and plica excision Medical History (Updated 07/07/25 @ 17:32 by Zuly Ayers) Infestation by bed bug Bedbug bite Follow-up exam Pneumonia History of prediabetes Wound of left lower extremity COVID-19 Screening for colorectal cancer Syncope Superficial thrombosis of leg (04/05/20) Anxiety GERD (gastroesophageal reflux disease) Restless leg syndrome Sleep apnea does not use device Surgical History Hx of oral surgery Pt states gum surgery Hx of shoulder surgery L Shoulder History of arthroscopy of right knee Dr. Talisha Johnson - [facility] [place] (03/13/16) Social History Smoking/Tobacco Use Status: Former Tobacco Use Quit Date: 08/16/82 Smoking risk assessment performed?: Yes Alcohol Intake: former Drug use: Never Substance use type: does not use Adopted: Yes Caregiver/Support person: Yes Foster care: Yes Housing: apartment Number of Children: 3 number of grandchildren: 8 Communication Needs: None Education Level: high school Do you need help understanding health information?: Never current occupation: unemployed Pets and animals: Yes Pets and animals: dog(s) Sexually active: No Do you think of yourself as: straight/heterosexual Current gender identity: male What is your relationship status?: How often do you talk on the phone with friends or family?: three or more times per week How often do you get together with friends or relatives?: twice per week Do you belong to any clubs or organized social groups?: no Panel score (0-1 are the most socially isolated patients): 1 What type of physical activity do you participate in: walking Duration: 15-30 minutes/day Frequency: daily Seatbelt use: never Helmet use: No Drive intox or ride w/intox shuttle bus driver: No Working smoke detector in home: Yes Carbon monox detector in home: Yes Do you feel safe at home: Yes Do you feel safe in your relationship?: Yes Victim of physical abuse: No Victim of emotional abuse: No Additional Social history: lives alone
[2025-07-07 15:01] LABS: Troponin I < 3 ng/L (<54)
[2025-07-07] MEDS: Normal Saline Flush 10 ML SYR IVP ×2 (15:24→19:38)
[2025-07-07] MEDS: Omnipaque 350 MG/ML 100 ML BTL IJ (15:24)
[2025-07-07] MEDS: Normal Saline - Diluent 50 ML VIAL IJ (15:24)
--- NOTE | 2025-07-07 15:27 | DI.CT_ITS ---
Exam(s) CT CHEST PE CTA EXAM: CT CHEST PE CTA CLINICAL HISTORY: NOVOA, L leg swelling concerning for DVT. TECHNIQUE: Imaging Protocol: Axial CT angiography was performed with multi- slice acquisition and multi-planar reconstructions as well as axial, coronal and sagittal MIP reconstructions. Computer aided detection (CAD) was utilized. CONTRAST MATERIAL: Intravenous: Omnipaque 350 Contrast volume:100 ml COMPARISON: CT CT CHEST PE ABD PELVIS W from 11/01/2024 FINDINGS: Pulmonary Arteries: There are multiple filling defects in noted in branch vessels of the right lower lobe pulmonary arteries Mediastinum and Shahnaz: No dominant adenopathy or fluid collection. Pulmonary parenchyma: No consolidation or dominant measurable mass. Pleura: No effusion or pneumothorax. Heart: The heart is not dilated. No evidence of right heart strain. Mild coronary artery calcifications are seen. Aorta: Thoracic aorta non-dilated. No dissection. Mild atherosclerotic changes. Upper abdomen: No acute findings. Cholelithiasis. Bones: Flowing osteophytes consistent with DISH. No acute fractures. Tubes, Catheters, and Lines: None Soft tissues: Unremarkable. IMPRESSION: Emboli are noted in right lower lobe branch vessels. No evidence of right heart strain. The lungs are clear. The preliminary [facility] report was reviewed. RADIATION DOSE DELIVERED: Total DLP DATA REPOSITORY: All CT scans at this facility are submitted to the National Radiology Data Registry (NRDR) Dose Index Registry (DIR) with the [employer] (A[employer]). RADIATION OPTIMIZATION: All CT scans at this facility use at least one of these dose optimization techniques: automated exposure control; mA and/or kV adjustment per patient size (includes targeted exams where dose is matched to clinical indication); or iterative reconstruction.
--- NOTE | 2025-07-07 15:31 | NUR.NOTE ---
Nae Shcofield; sister called requesting information about the patient. Patient in DI. Checked with patient after he returned and he stated that yes I could give her information. Nae Schofield [phone] Nursing Note:
[2025-07-07] MEDS: Normal Saline 500 ML IV (16:02)
--- NOTE | 2025-07-07 16:08 | DI.[facility]_ITS ---
Addendum created by Dre Crook MD on 07/07/2025 4:08:24 PM EST: THIS REPORT CONTAINS FINDINGS THAT MAY BE CRITICAL TO PATIENT CARE. The findings were verbally communicated via telephone conference with MATTHEW SALEH at 4:08 PM EST on 07/07/2025. The findings were acknowledged and understood. Initial report created on 07/07/2025 4:08:05 PM EST: PROCEDURE INFORMATION: Exam: CTA Chest With Contrast Exam date and time: 07/07/2025 3:13 PM Age: 64 years old Clinical indication: Other: Dean, L leg swelling concerning for dvt TECHNIQUE: Imaging protocol: Computed tomographic angiography of the chest with contrast. Exam focused on the arteries. 3D rendering (Not supervised by radiologist): MIP and/or 3D reconstructed images were created by the technologist. Contrast material: 350; Contrast volume: 100 ml; Contrast route: INTRAVENOUS (IV); COMPARISON: CT CHEST PE ABD PELVIS W 01/11/2024 15:50 FINDINGS: Pulmonary arteries: The pulmonary arteries are normal in caliber. There are filling defects within the 2nd and 3rd order right lower lobe pulmonary arteries consistent with acute pulmonary embolism. Aorta: The aorta is normal without evidence of aneurysmal dilatation, dissection or significant occlusive disease. There is mild atherosclerosis of the transverse thoracic aorta. There is mild atherosclerosis of the abdominal aorta. Lungs: There is no evidence of focal pulmonary consolidation. No evidence of pulmonary parenchymal inflammatory changes. There is no evidence of pulmonary masses. Pleural spaces: There is no evidence of pneumothorax. There are no pleural effusions present. Heart: The cardiac structures are normal. The right ventricular to left ventricular ratio is normal measuring approximately 0.9. No evidence of reflux of contrast into the inferior vena cava or hepatic veins to suggest right heart strain or pulmonary hypertension. Coronary arteries: There is mild atherosclerotic calcification of the coronary arteries. Lymph nodes: There is no evidence of lymphadenopathy. Gallbladder and biliary ducts: There are calcified gallstones present within the gallbladder lumen. There is no wall thickening or pericholecystic fluid. Findings consistant with cholelitiasis without cholecystitis. Bones/joints: The thoracic spine demonstrates moderate degenerative changes at multiple levels. There are diffuse enthesopathic changes consistent with benign diffuse idiopathic skeletal hyperostosis (DISH). The spine, sternum, ribs, and pectoral girdles show no evidence of acute abnormality. Soft tissues: There are no soft tissue masses or fluid collections. The upper abdominal viscera are otherwise unremarkable. Other findings: The mediastinal structures are normal. IMPRESSION: 1. There are filling defects within the 2nd and 3rd order right lower lobe pulmonary arteries consistent with acute pulmonary embolism. 2. Findings consistant with cholelitiasis without cholecystitis. Dictated and Authenticated by: Dre Crook MD. Orderin Jennifer Caruso MD
--- NOTE | 2025-07-07 16:42 | W.PM.HP.N ---
Date of service: 07/07/25 Time of Service: 16:42 Assessment and Plan Assessment and plan (1) Pulmonary embolism: Status: Chronic Assessment and plan: Per HPI and CT imaging showing right lower lobe pulmonary embolism Eliquis initiated in the ED will continue Eliquis at 10 mg oral twice daily for 14 doses total 10 5 mg orally twice daily for at least 3 months with follow-up PCP Prescription sent to pharmacy -care management notified (2) Leukocytosis: Status: Acute Assessment and plan: The patient was 17.7 in the ED with reports of chills over the past day no source of infection: UA pending, no infiltrates on chest CT VBG and lactate pending Upper respiratory viral panel pending With WBC at 17 tachycardia and tachypnea the patient meets criteria for sepsis with unknown source. The left lower extremity slightly edematous but without erythema or open wound or lesions Consider additional diagnosis of severe sepsis if febrile illness or positive finding of pending laboratory results or to be found in the setting of increased creatinine (3) DVT (deep venous thrombosis): Status: Chronic Assessment and plan: Suspected to LLE - US venous LE inpatient VS outpatient (4) Edema of left lower extremity: Status: Acute Assessment and plan: As above (5) MILAGROS (acute kidney injury): Status: Acute Assessment and plan: MILAGROS stage I Cr 1.2 from baseline 0.9 IVF overnight , last LVEF 55% BMP in AM (6) Hypothyroidism: Status: Chronic Assessment and plan: Continue home medicine regimen (7) Depression: Status: Chronic Assessment and plan: Continue home medicine regimen (8) Hyperlipidemia: Status: Acute Assessment and plan: Continue home medicine regimen (9) Hypertension: Status: Chronic Assessment and plan: Hold diuresis and ACEI's VS Q4 Consider CCB for uncontrolled BP BMP in AM (10) Insomnia: Status: Acute Assessment and plan: Continue home medicine regimen Consider melatonin at HS (11) Obesity: Status: Chronic Assessment and plan: On GLP-1 at home - resume at d/c as per PCP (12) Diabetes: Status: Chronic Assessment and plan: On metformin - on hold- resume on D/c VS at 48 hours PCOT glucose AC and HS with SS! coverage AC (13) Discharge planning issues: Status: Acute Assessment and plan: inpatient 24- 48 hours- could go home in AM with opt US lower ext. S/c on DOAC Discussed with Dr Syed History of Present Illness History of Present Illness Chief Complaint: SOB , LLE pain Narrative: Milind Fowler is a 64 yo male patient with a PMHx of calcified cerebral meningioma, hypertension, hyperlipidemia, diabetes, GERD presented to the ED for dyspena on exertion and left leg pain .The patient was tachycardic on arrival HR low 100's, tachypneic respiratory rate 25 to 29 without hypoxemia. Work-up in the ED was positive for small RLL pulmonary emboli and the patient clinically appears to have L leg DVT from thigh down. Blood work was positive for MILAGROS stage I w Cr 1.22 from baseline 0.9 and leukocytosis at 17.7 with left shift with ANC of 13.8, mild anemia with hemoglobin of 10.8, platelet at 515, minimal hyponatremia with sodium at 132. The patient was admitted to the medical surgical floor by the hospitalist service for further evaluation and management in the setting of pulmonary embolism. Eliquis was initiated in the emergency room. Full CODE STATUS confirmed. Patient reporting chills at home for the past 2 days without objective fever, intermittent dizziness, left leg pain worsening with insomnia. Patient denies headache, change in vision, chest pain, GI or symptoms. Patient denied previous history of PE DVT or blood clot history; no other history of cancer besides the history of calcified meningioma. Patient is unable to state date and is unable to recall and repeat when reoriented; unable to ascertain patient cognitive baseline but remains neurologically intact without focal deficit. UA ordered and pending. VBG and lactate added to blood work. Review of Systems All systems reviewed & are unremarkable except as noted in HPI and below PFSH All Active Problems (Updated 07/07/25 @ 17:32 by Zuly Ayers) MILAGROS (acute kidney injury) (Acute) Leukocytosis (Acute) Discharge planning issues (Acute) Diabetes (Chronic) DVT (deep venous thrombosis) (Chronic) Edema of left lower extremity (Acute) Pulmonary embolism (Chronic) Hypothyroidism (Chronic) Depression (Chronic) Balance disorder (Acute) BPPV (benign paroxysmal positional vertigo) (Acute) Calcified cerebral meningioma (Acute ~10/2024) Vertigo (Acute) Peripheral vascular disease, unspecified (Chronic) Eczema (Acute) Prediabetes (Acute 01/2019) Hyperlipidemia (Acute) Aortic regurgitation (Acute) Left ventricular hypertrophy (Acute) Fatty infiltration of liver (Acute) Cholelithiasis (Acute) Anterior epistaxis (Acute) Primary osteoarthritis of right knee (Acute) Injected: 06/26/2019 Primary osteoarthritis of left knee (Acute) Injected: 06/26/2019 Hypertension (Chronic) Insomnia (Acute) Obesity (Chronic) Tear of medial meniscus of left knee (Acute 09/26/19) Status post knee arthroscopy -partial medial meniscectomy and plica excision Medical History (Updated 07/07/25 @ 17:32 by Zuly Ayers) Infestation by bed bug Bedbug bite Follow-up exam Pneumonia History of prediabetes Wound of left lower extremity COVID-19 Screening for colorectal cancer Syncope Superficial thrombosis of leg (04/05/20) Anxiety GERD (gastroesophageal reflux disease) Restless leg syndrome Sleep apnea does not use device Surgical History Hx of oral surgery Pt states gum surgery Hx of shoulder surgery L Shoulder History of arthroscopy of right knee Dr. Woodall Colonoscopy - [facility] [place] (03/13/16) Social History Smoking/Tobacco Use Status: Former Tobacco Use Quit Date: 08/16/82 Smoking risk assessment performed?: Yes Alcohol Intake: former Drug use: Never Substance use type: does not use Adopted: Yes Caregiver/Support person: Yes Foster care: Yes Housing: apartment Number of Children: 3 number of grandchildren: 8 Communication Needs: None Education Level: high school Do you need help understanding health information?: Never current occupation: unemployed Pets and animals: Yes Pets and animals: dog(s) Sexually active: No Do you think of yourself as: straight/heterosexual Current gender identity: male What is your relationship status?: How often do you talk on the phone with friends or family?: three or more times per week How often do you get together with friends or relatives?: twice per week Do you belong to any clubs or organized social groups?: no Panel score (0-1 are the most socially isolated patients): 1 What type of physical activity do you participate in: walking Duration: 15-30 minutes/day Frequency: daily Seatbelt use: never Helmet use: No Drive intox or ride w/intox scoop driver: No Working smoke detector in home: Yes Carbon monox detector in home: Yes Do you feel safe at home: Yes Do you feel safe in your relationship?: Yes Victim of physical abuse: No Victim of emotional abuse: No Additional Social history: lives alone Meds Allergies and Home Medications Allergies Allergy/AdvReac Type Severity Reaction Status Date / Time Penicillins Allergy Severe Skin Rash, Verified 07/07/25 12:20 TONGUE SWELLING Sulfa (Sulfonamide Allergy Intermediate Skin Rash Verified 07/07/25 12:20 Antibiotics) clindamycin Allergy Mild unknown Verified 07/07/25 12:20 oxacillin Allergy Mild unknown Verified 07/07/25 12:20 Home Medications ?Medication ?Instructions ?Recorded ?Confirmed ?Type lidocaine 5 % topical patch 1 patch topical DAILY PRN #15 ea 04/04/23 07/07/25 Rx (Lidoderm) diclofenac sodium 1 % topical gel 2 g topical BID 06/30/23 07/07/25 History (Voltaren Arthritis Pain) atorvastatin 20 mg tablet 20 mg PO QHS #90 tabs 01/21/24 07/07/25 Rx cetirizine 10 mg tablet 10 mg PO DAILY #90 tabs 06/13/24 07/07/25 Rx ropinirole 1 mg tablet 1 mg PO QHS #90 tabs 07/24/24 07/07/25 Rx spironolactone 25 mg tablet See Rx Instructions .Route 08/01/24 07/07/25 Rx .COMPLEX #90 tabs aspirin 81 mg tablet,delayed 81 mg PO DAILY 11/02/24 07/07/25 History release naltrexone 50 mg tablet See Rx Instructions .Route 01/09/25 07/07/25 Rx .COMPLEX #90 tabs lisinopril 10 mg tablet See Rx Instructions .Route 02/26/25 07/07/25 Rx .COMPLEX #90 tabs trazodone 50 mg tablet 25 mg (1/2 x 50 mg) PO DAILY 03/28/25 07/07/25 Rx insomnia #14 tabs triamcinolone acetonide 0.1 % 1 applic topical BID rash on arms 03/28/25 07/07/25 Rx topical cream #80 grams sertraline 25 mg tablet See Rx Instructions .Route 04/02/25 07/07/25 Rx .COMPLEX #90 tabs risperidone 0.25 mg tablet See Rx Instructions .Route 04/10/25 07/07/25 Rx .COMPLEX #90 tabs cyclobenzaprine 10 mg tablet See Rx Instructions .Route 05/02/25 07/07/25 Rx .COMPLEX #60 tabs furosemide 20 mg tablet See Rx Instructions .Route 05/02/25 07/07/25 Rx .COMPLEX #90 tabs levothyroxine 100 mcg tablet See Rx Instructions .Route 05/02/25 07/07/25 Rx .COMPLEX #90 tabs lorazepam 0.5 mg tablet 0.5 mg PO ONCE PRN 05/15/25 07/07/25 Rx anxiety/claustrophobia #2 tabs bupropion HCl 150 mg tablet,12 hr See Rx Instructions .Route 05/21/25 07/07/25 Rx sustained-release .COMPLEX #270 tabs omeprazole 20 mg capsule,delayed See Rx Instructions .Route 05/22/25 07/07/25 Rx release .COMPLEX #90 caps metformin 500 mg tablet,extended 1,000 mg (2 x 500 mg) PO DAILY 06/11/25 07/07/25 Rx release 24 hr #180 tabs semaglutide (weight loss) 1.7 1.7 mg (0.75 mL) subcut QWEEK #3 mL 06/27/25 07/07/25 Rx mg/0.75 mL subcutaneous pen injector apixaban 5 mg tablet (Eliquis) 5 mg PO BID #72 tabs 07/07/25 Rx Exam Narrative Exam Narrative: Alert and oriented x to self and place , situation , not in time and unable to recall information when reoriented, but stating that at time he forgets - no acute focal neurological deficit, labored breathing on exertion, clear lungs, S1-S2, no murmur, EKG showed sinus tachycardia heart rate 119 without sign of coronary occlusion with nonspecific T wave abnormality in the lateral leads on report - troponin negative and no chest pain, abdomen is obese , nondistended soft nontender, no CVA tenderness, Results Labs 07/07/25 13:04 07/07/25 13:04 Labs: Laboratory Results - last 24 hr 07/07/25 07/07/25 07/07/25 13:04 14:04 15:25 WBC 17.72 H RBC 4.89 Hgb 10.8 L Hct 35.1 L MCV 72 L MCH 22.1 L MCHC 30.8 L RDW 17.5 H Plt Count 515 H MPV 8.6 Immature Gran % 0.8 Neutrophils % 78.0 Lymphocytes % 9.7 Monocytes % 8.7 Eosinophils % 2.3 Basophils % 0.5 Nucleated RBC % 0.0 Absolute Neutrophils 13.82 H Absolute Lymphocytes 1.72 Absolute Monocytes 1.54 H Absolute Eosinophils 0.41 Absolute Basophils 0.09 RBC Morphology See Below Microcytosis 2+ PT 10.8 INR 1.1 APTT 26.3 D-Dimer 3990 H Sodium 132 L Potassium 4.3 Chloride 98 Carbon Dioxide 25.0 Anion Gap 9.3 BUN 15 Creatinine 1.22 H Est GFR (CKD-EPI 2020) 59.67 Glucose 141 H Calcium 9.2 Total Bilirubin 0.50 AST 12 ALT 14 Alkaline Phosphatase 109 Troponin I 4 < 3 Cancelled NT-Pro-B Natriuret Pep 110 Total Protein 7.8 Albumin 4.2 TSH 1.72 Last Vital Signs Temp 37.0 C 07/07/25 16:40 Pulse 110 H 07/07/25 16:40 Resp 22 07/07/25 16:40 BP 153/73 H 07/07/25 16:40 Pulse Ox 94 07/07/25 16:40 Time Spent Time spent with Patient: >75 minutes Time was spent: preparing to see the patient(eg.review tests), obtaining and/or reviewing separately otained hiistory, ordering medications,tests, procedures, referring, communicating with other health medicare coordinator, indepentently interpreting results, counseling the patient, care coordination and other
[2025-07-07] MEDS: Apixaban 5 MG TAB 10 MG PO ×2 (16:50→19:37)
--- NOTE | 2025-07-07 17:50 | W.PC.ACHO ---
Registration Status: REG ER Primary Language: Preferred Language: Urdu ED Information & Data Chief Complaint Vascular 07/07/25 14:02 Triage Note Pt reports increasing SOB 07/07/25 12:17 with ambulation and pain in the left leg for about 2.5 weeks- no hx of blood clots Medical / Surgical History (Last Updated 06/27/25 @ 13:12 by Alysia Castro APRN) Infestation by bed bug Bedbug bite Follow-up exam Pneumonia History of prediabetes Wound of left lower extremity COVID-19 Screening for colorectal cancer Syncope Superficial thrombosis of leg (04/05/20) Anxiety GERD (gastroesophageal reflux disease) Restless leg syndrome Sleep apnea (Last Reviewed 11/30/24 @ 10:45 by Andria Peralta MD) Hx of oral surgery Hx of shoulder surgery History of arthroscopy of right knee Colonoscopy - [facility] (03/13/16) Most Recent Vital Signs Temperature 37.0 C 07/07/25 16:40 Temperature Source Tympanic 07/07/25 16:40 Pulse 99 H 07/07/25 17:48 Pulse 106 H 07/07/25 16:50 Respiratory Rate 24 07/07/25 17:48 Respiratory Effort Short of Breath, Incrsd Work of Breathing 07/07/25 13:52 Blood Pressure 120/73 07/07/25 17:48 Blood Pressure Mean 51 07/07/25 16:46 Blood Pressure Position Sitting 07/07/25 12:17 Pulse Oximetry 97 07/07/25 17:48 Oxygen Delivery Method Room Air 07/07/25 16:40 Oxygen Flow Rate 0 07/07/25 16:40 Pain Level 10 07/07/25 12:17 Allergies Penicillins Allergy (Severe, Verified 07/07/25 12:20) Skin Rash, TONGUE SWELLING Sulfa (Sulfonamide Antibiotics) Allergy (Intermediate, Verified 07/07/25 12:20) Skin Rash clindamycin Allergy (Mild, Verified 07/07/25 12:20) unknown oxacillin Allergy (Mild, Verified 07/07/25 12:20) unknown Precautions Isolation Standard precaution 07/07/25 12:19 Active Medications Generic Name Dose Route Start Last Admin Trade Name Freq PRN Reason Stop Dose Admin Iohexol 100 ml 07/07/25 15:30 07/07/25 15:24 Omnipaque 350 Mg/Ml 100 Ml Btl IJ 08/06/25 23:59 100 ml DIRECTED JON Administration Sodium Chloride 0 ml 07/07/25 15:23 07/07/25 15:24 Normal Saline Flush 10 Ml Syr IVP 10 ml PRN PRN Administration Sodium Chloride 50 ml 07/07/25 15:30 07/07/25 15:24 Normal Saline - Diluent 50 Ml Vial IJ 50 ml DIRECTED JON Administration IV IV Catheter Type [Right Saline Lock Antecubital] IV Catheter Gauge [Right 18 Antecubital] Diagnostics 07/07/25 07/07/25 07/07/25 Range/Units 15:25 14:04 13:04 WBC 17.72 H (4.4-10.8) 10^3/uL RBC 4.89 (4.36-5.78) 10^6/uL Hgb 10.8 L (13.5-17.5) g/dL Hct 35.1 L (40.0-50.0) % MCV 72 L (80-95) fL MCH 22.1 L (27.0-33.0) pg MCHC 30.8 L (32.0-36.0) % RDW 17.5 H (11.8-14.1) % Plt Count 515 H (130-400) 10^3/uL MPV 8.6 (8.0-11.0) fL Immature Gran % 0.8 % Neutrophils % 78.0 % Lymphocytes % 9.7 % Monocytes % 8.7 % Eosinophils % 2.3 % Basophils % 0.5 % Nucleated RBC % 0.0 (0.0-0.3) % Absolute Neutrophils 13.82 H (1.2-6.7) 10^3/uL Absolute Lymphocytes 1.72 (1.2-3.4) 10^3/uL Absolute Monocytes 1.54 H (0.1-0.8) 10^3/uL Absolute Eosinophils 0.41 (0.0-0.7) 10^3/uL Absolute Basophils 0.09 (0.0-0.2) 10^3/uL RBC Morphology See Below Microcytosis 2+ PT 10.8 (9.1-11.1) sec INR 1.1 (0.9-1.1) APTT 26.3 (20.6-30.2) sec D-Dimer 3990 H (<500) ng/mlFEU Sodium 132 L (136-145) mmol/L Potassium 4.3 (3.5-5.1) mmol/L Chloride 98 (98-107) mmol/L Carbon Dioxide 25.0 (20.0-31.0) mmol/L Anion Gap 9.3 (3-11) mmol/L BUN 15 (9-23) mg/dL Creatinine 1.22 H (0.73-1.18) mg/dL Est GFR (CKD-EPI 2020) 59.67 (mL/min/1.73m2) Glucose 141 H (74-106) mg/dL Calcium 9.2 (8.3-10.6) mg/dL Total Bilirubin 0.50 (0.2-1.2) mg/dL AST 12 (<34) U/L ALT 14 (10-49) U/L Alkaline Phosphatase 109 (46-116) U/L Troponin I Cancelled < 3 4 (<54) ng/L NT-Pro-B Natriuret Pep 110 (<300) pg/mL Total Protein 7.8 (5.7-8.2) g/dL Albumin 4.2 (3.4-5.0) g/dL TSH 1.72 (0.55-4.78) uIU/mL Intake and Output - 24 Hour Total 07/07/25 11:59 thru 07/07/25 13:06 Intake Total 10 Balance 10 Weight 155.582 kg Intake: IV 10 Falls Risk Assessment Contributing Factors Impairments 07/07/25 13:51 Ambulatory Aids Independent 07/07/25 13:51 Tubes/Lines None 07/07/25 13:51 Gait Evaluation W/no contributing factors 07/07/25 13:51 Cognition No cognitive impairment 07/07/25 13:51 Fall Total Score 13 07/07/25 13:51 Level of Risk Standard/Low Risk 07/07/25 13:51 Problems (Last Updated 06/27/25 @ 13:12 by Alysia Castro APRN) MILAGROS (acute kidney injury) (Acute) Leukocytosis (Acute) Discharge planning issues (Acute) Diabetes (Chronic) DVT (deep venous thrombosis) (Chronic) Edema of left lower extremity (Acute) Pulmonary embolism (Chronic) Hypothyroidism (Chronic) Depression (Chronic) Hyperlipidemia (Acute) Hypertension (Chronic) Insomnia (Acute) Obesity (Chronic) Notes 07/07/25 15:31 Nursing Notes by Cindy Monsivais; sister called requesting information about the patient. Patient in DI. Checked with patient after he returned and he stated that yes I could give her information. Nae Chandu [phone] Nursing Note: Initialized on 07/07/25 15:31 - END OF NOTE Attestation Statement: By documenting the first initial, last name, and credentials of the reporting nurse below, both parties acknowledge that all relevant information regarding the patient handoff has been communicated, and that all questions have been addressed to ensure continuity and safety of care. Additional Patient Information/Comments: pt going into room 229 Report Received From: Klaudia BARTLETT
[2025-07-07 18:26] LABS: BE (Venous) 1 mmol/L (-2-3); HCO3 (Venous) 26 mmol/L (23-28); O2 Sat (Venous) 32 %; TCO2 (Venous) 25 mmol/L (24-29); pCO2 (Venous) 43 mmHg (41-51); pO2 (Venous) 23 mmHg
--- NOTE | 2025-07-07 18:36 | NUR.NOTE ---
Nursing Note: At 6pm received report from Klaudia [employer] nurse pt admitted via stretcher pt assisted to the bed VSS BS [id number] full admission done skin check done skin intact heels dry Lt leg slightly swollen tender to touch call cali at side Bed alarm on safety maintained
[2025-07-07] MEDS: Atorvastatin 20 MG TAB PO (19:37)
[2025-07-07] MEDS: rOPINIRole 1 MG TAB PO (19:37)
[2025-07-07] MEDS: Lactated Ringers 1,000 ML 100 ML IV (19:56)
[2025-07-07] MEDS: MORPHine 2 MG/ML SYR IVP (20:06)
[2025-07-07 23:18] LABS: Glucose Negative (Negative)
[2025-07-07 23:24] LABS: C & S Indicated? No; RBC 0-2 HPF (0-2); WBC Negative HPF (0-5)
[2025-07-08 00:15] LABS: COVID-19 PCR Negative (Negative); RSV PCR Negative (Negative)
[2025-07-08 02:53] VITALS: BP 117/74; PULSE 95; RESP 16; TEMP 36.5; O2SAT 96
[2025-07-08] MEDS: Levothyroxine 100 MCG TAB PO (06:04)
[2025-07-08] MEDS: Lactated Ringers 1,000 ML 100 ML IV (06:04)
[2025-07-08 06:24] LABS: Abs Immature Grans 0.08 10^3/uL (0.0-0.06); HCT 31.1 % (40.0-50.0); HGB 9.8 g/dL (13.5-17.5); Immature Grans % 0.6 %; MCH 22.7 pg (27.0-33.0); MCHC 31.5 % (32.0-36.0); MCV 72 fL (80-95); MPV 8.9 fL (8.0-11.0); Platelet Count 444 10^3/uL (130-400); RBC 4.32 10^6/uL (4.36-5.78); RDW 17.6 % (11.8-14.1); RDW-SD 45.7 fL; WBC 13.30 10^3/uL (4.4-10.8)
[2025-07-08 06:46] LABS: Anion Gap 9.6 mmol/L (3-11); BUN 16 mg/dL (9-23); CO2 25.4 mmol/L (20.0-31.0); Calcium 8.9 mg/dL (8.3-10.6); Chloride 101 mmol/L (98-107); Glucose 92 mg/dL (74-106); Potassium 3.9 mmol/L (3.5-5.1); Sodium 136 mmol/L (136-145)
--- NOTE | 2025-07-08 07:56 | PDOC.CMIN ---
Date of service: 07/08/25 Time of Service: 07:56 Care Management Initial Assmt Initial Assessment Reason for Hospitalization: MILAGROS Functional Status/Living Situation Patient Presentation: Milind was awake and lying in bed when CM met with him. He was pleasant and easily engaged in conversation. Per pt, he lives in [facility] with his sister Nae but no other natural supports. Per pt, his mother Serena, to whom he was very close with at the beginning of May and many of his friends have also . He states he has two younger sisters who live out of state, but they are currently upset with him because he has declined to give them any of their mothers ashes, which he explains is because they were not involved in her life. On a side note, Milind reports that he had [employer] exterminate his home a few weeks ago and the problem he was having with bed bugs is now gone. Patient denies any community concerns at this time and is familiar with [employer] and the [employer]. He attempted to get enroll in [employer] a few months back but did not qualify due to being over income. [facility] of Residence: [facility] Resides with: Other (Sister Nae) Significant Other/Family: Local Natural Supports: Sister Nae 2 sisters that live out of the area, appeared to be some tension between him and them Employment Status: Disabled Instrumental Activities of Daily Living (ADLs): Independent Medications Medication Management: No Issues/Barriers identified Physical Functioning/Mobility Assistive Device: Walking stick Advance Directives Advance Directives: Do you have an Advance Directive: N 10/22/12, 04:56 AD On File at [facility]: N 10/16/12, 08:39 Date Asked 07/07/25 07/07/25, 12:00 AD Date Reviewed COLST On File at [facility] COLST Date Scanned Code Status Resuscitation Status Full Code Insurance Coverage/Financial Issues Insurance: [employer] Medicare Replacement - [id number] FINANCIAL ASST 100 - [id number] Care Team Visit Care Team Role Provider Type Janey Maher NP NURSE PRACTITIONER Alysia Castro APRN Primary Care Provider NURSE PRACTITIONER Nay Sandoval RDN, [facility] Other Providers DEICER REPAIRER Louis Shepard RDN Other Providers DEICER REPAIRER Zuly Ayers Emergency Provider NURSE PRACTITIONER Robby Syed MD Admit Provider MD THOMPSON STAFF PHYSICIAN Attending Provider Discharge Potential Discharge Needs: PCP F/U Appt Anticipated Barriers to Discharge: None Identified Patient/Family Education Needs: Review discharge instructions, discuss Ask Me Three Transportation: Private vehicle Plan: Anticipate Milind will discharge home with via private vehicle with family once medically ready for discharge. He is not homebound, and no new services are anticipated at this time. He will follow up community providers and continue per his discharge plan of care as directed. CM will follow. Social Determinants of Health Screening Social Determinants of health last assessed in clinic: 07/08/25 Will the Patient Participate in the Screening?: Yes Do you worry about having a steady place to live?: yes What is your living situation today?: I have housing today, but am worried about losing it Problems where you live: no known problems In the past 12 months, have you had to go without electric, gas, oil or water in your home?: no 1. Within the past 12 months, we worried whether our food would run out before we got money to buy more.: Never true 2. Within the past 12 months, the food we bought just didn't last and we didn't have money to get more.: Never true Has lack of transportation kept you from medical appointments or from doing things needed for daily living?: no Has anyone in your life made you feel unsafe or unsupported?: no How hard is it for you to pay for the very basics like food, housing, medical care, and heating? Would you say it is:: Not hard at all Do you want help finding or keeping work or a job?: I do not need or want help If for any reason you need help with day-to-day activities such as bathing, preparing meals, shopping, managing finances, etc., do you get the help you need?: I don?t need any help How often do you feel lonely or isolated from those around you?: Never Do you speak a language other than Bhutanese at home?: No Does the patient want assistance with any of the above?: No Health Related Social Needs Health related social needs: housing instability, housed, with risk of homelessness (Z59.811) PFSH All Active Problems (Updated 07/08/25 @ 14:06 by Janey Maher NP) Leukocytosis (Acute) Discharge planning issues (Acute) Diabetes (Chronic) DVT (deep venous thrombosis) (Acute) Edema of left lower extremity (Acute) Pulmonary embolism (Acute) Hypothyroidism (Chronic) Depression (Chronic) Balance disorder (Acute) BPPV (benign paroxysmal positional vertigo) (Acute) Calcified cerebral meningioma (Acute ~10/2024) Vertigo (Acute) Peripheral vascular disease, unspecified (Chronic) Eczema (Acute) Prediabetes (Acute 01/2019) Hyperlipidemia (Acute) Aortic regurgitation (Acute) Left ventricular hypertrophy (Acute) Fatty infiltration of liver (Acute) Cholelithiasis (Acute) Anterior epistaxis (Acute) Primary osteoarthritis of right knee (Acute) Injected: 06/26/2019 Primary osteoarthritis of left knee (Acute) Injected: 06/26/2019 Hypertension (Chronic) Insomnia (Acute) Obesity (Chronic) Tear of medial meniscus of left knee (Acute 09/26/19) Status post knee arthroscopy -partial medial meniscectomy and plica excision Medical History (Updated 07/08/25 @ 14:06 by Janey Maher NP) Infestation by bed bug Bedbug bite Follow-up exam Pneumonia History of prediabetes Wound of left lower extremity COVID-19 Screening for colorectal cancer Syncope Superficial thrombosis of leg (04/05/20) Anxiety GERD (gastroesophageal reflux disease) Restless leg syndrome Sleep apnea does not use device Surgical History Hx of oral surgery Pt states gum surgery Hx of shoulder surgery L Shoulder History of arthroscopy of right knee Dr. Woodall Colonoscopy - MAC (03/13/16) Social History Smoking/Tobacco Use Status: Former Tobacco Use Quit Date: 08/16/82 Smoking risk assessment performed?: Yes Alcohol Intake: former Drug use: Never Substance use type: does not use Adopted: Yes Caregiver/Support person: Yes Foster care: Yes Housing: apartment Number of Children: 3 number of grandchildren: 8 Communication Needs: None Education Level: high school Do you need help understanding health information?: Never current occupation: unemployed Pets and animals: Yes Pets and animals: dog(s) Sexually active: No Do you think of yourself as: straight/heterosexual Current gender identity: male What is your relationship status?: How often do you talk on the phone with friends or family?: three or more times per week How often do you get together with friends or relatives?: twice per week Do you belong to any clubs or organized social groups?: no Panel score (0-1 are the most socially isolated patients): 1 What type of physical activity do you participate in: walking Duration: 15-30 minutes/day Frequency: daily Seatbelt use: never Helmet use: No Drive intox or ride w/intox cpr ambulance driver: No Working smoke detector in home: Yes Carbon monox detector in home: Yes Do you feel safe at home: Yes Do you feel safe in your relationship?: Yes Victim of physical abuse: No Victim of emotional abuse: No Additional Social history: lives alone
[2025-07-08 07:59] VITALS: BP 130/68; PULSE 74; RESP 19; TEMP 35.9; O2SAT 94
[2025-07-08] MEDS: Apixaban 5 MG TAB 10 MG PO ×2 (09:22→19:25)
[2025-07-08] MEDS: Omeprazole 20 MG CAPCR PO (09:22)
[2025-07-08] MEDS: Aspirin E.C. 81 MG TABEC PO (09:23)
[2025-07-08] MEDS: Cetirizine 10 MG TAB PO (09:23)
[2025-07-08] MEDS: Normal Saline Flush 10 ML SYR IVP ×2 (09:23→19:26)
[2025-07-08] MEDS: Sertraline 25 MG TAB PO (09:24)
[2025-07-08] MEDS: Naltrexone 50 MG TAB 25 MG PO ×2 (09:24→17:23)
[2025-07-08] MEDS: risperiDONE 0.25 MG TAB PO (09:25)
[2025-07-08] MEDS: traZODone 50 MG TAB 25 MG PO (10:56)
--- NOTE | 2025-07-08 11:21 | PHA.REVIEW2 ---
Pharmacy Admission Review Admission Clinical Review Admission Pharmacy Review: MILAGROS (acute kidney injury) (Acute) Leukocytosis (Acute) Discharge planning issues (Acute) Edema of left lower extremity (Acute) Hyperlipidemia (Acute) Insomnia (Acute) Penicillins Allergy (Severe, Verified 07/07/25 12:20) Skin Rash, TONGUE SWELLING Sulfa (Sulfonamide Antibiotics) Allergy (Intermediate, Verified 07/07/25 12:20) Skin Rash clindamycin Allergy (Mild, Verified 07/07/25 12:20) unknown oxacillin Allergy (Mild, Verified 07/07/25 12:20) unknown Resuscitation Status Full Code Height 5 ft 8 in Weight 144.8 kg Pharmacy Admission Review Renal Dosing Renal Dosing: BUN 16 mg/dL (9-23) 07/08/25 05:55 Creatinine 0.93 mg/dL (0.73-1.18) 07/08/25 05:55 Medications needing adjustments: Reviewed (CrCl 104.45 mL/min) List of meds needing interventions: Current medications are okay Anticoagulation Anticoagulation: Hgb 9.8 g/dL (13.5-17.5) L 07/08/25 05:55 Hct 31.1 % (40.0-50.0) L 07/08/25 05:55 Plt Count 444 10^3/uL (130-400) H 07/08/25 05:55 INR 1.1 (0.9-1.1) 07/07/25 13:04 Creatinine 0.93 mg/dL (0.73-1.18) 07/08/25 05:55 Therapeutic Anticoagulation: Reviewed (Hgb decreased from 10.8) Medications: Apixaban (10mg BID) Opiate Usage Evaluate Pain Scale/Pains Meds: Reviewed (morphine IVP 2mg q4h PRN - 2mg/24hrs) Scheduled Bowel Reg ordered if on Opiates?: No (PRN Miralax) Relevant Labs Relevant Labs: Sodium 136 mmol/L (136-145) 07/08/25 05:55 Potassium 3.9 mmol/L (3.5-5.1) 07/08/25 05:55 Chloride 101 mmol/L (98-107) 07/08/25 05:55 Electrolytes, C-Reactive P, ESR: Reviewed (WBC decreased from 17.72 to 13.3) DM Control DM Control: Glucose 92 mg/dL (74-106) 07/08/25 05:55 Finger Stick Blood Glucose 101 0922 Finger Stick Blood Glucose 101 0749 Finger Stick Blood Glucose 101 0749 DM Control: Reviewed Insulin Dosing, Diabetic Medication: Has order for SS insulin Cardiac Review Cardiac Review: Troponin I Cancelled 07/07/25 15:25 NT-Pro-B Natriuret Pep 110 pg/mL (<300) 07/07/25 13:04 BP, HR, EF%: Reviewed (HR and BP WNL) QTc Review QTc: Reviewed (414 from 07/07/25) IV to PO Switch IV Medications: Reviewed (morphine) Home Meds Home Med List reviewed: Intervened Relevent Home Meds Not ordered & why?: bupropion, furosemide (on hold per H+P), lisinopril (on hold per H+P), metformin (on hold per H+P), Wegovy (on hold per H+P) and spironolactone (on hold per H+P) Reached out to provider about bupropion - waiting to hear back Current Meds Current Medication Order Review: Intervened Comments: Order had been put in for lorazepam once PRN from home med list that was for MRI. Canceled order.
[2025-07-08 11:43] VITALS: BP 123/79; PULSE 115; RESP 18; TEMP 36.3; O2SAT 98
--- NOTE | 2025-07-08 13:47 | W.PM.PROGNOT ---
Date of Service Date of service: 07/08/25 Time of Service: 13:47 Assessment and Plan Assessment and plan (1) Pulmonary embolism: Status: Acute Assessment and plan: no oxygen requirements continue Eliquis 10 mg oral twice daily for 14 doses then 5 mg orally twice daily, duration per PCP Prescription sent to pharmacy -care management notified No evidence of heart strain on CT but will obtain echocardiogram if available on Wednesday Bilateral lower extremity ultrasounds pending for Wednesday (2) Leukocytosis: Status: Acute Assessment and plan: no source of infection identified resolving, likely stress response (3) DVT (deep venous thrombosis): Status: Acute Assessment and plan: fully anticoagulated on apixaban US venous bilateral lower extremities pending for Wednesday (4) Edema of left lower extremity: Status: Acute Assessment and plan: As above (5) MILAGROS (acute kidney injury): Status: Resolved Assessment and plan: normalized after IV hydration (6) Hypothyroidism: Status: Chronic Assessment and plan: Continue home medicine regimen (7) Depression: Status: Chronic Assessment and plan: Continue home medicine regimen (8) Hyperlipidemia: Status: Acute Assessment and plan: Continue home medicine regimen (9) Hypertension: Status: Chronic Assessment and plan: resume diuresis and ACEI's continue routine monitoring and adjust as needed. (10) Insomnia: Status: Acute Assessment and plan: Continue home medicine regimen Consider melatonin at HS (11) Obesity: Status: Chronic Assessment and plan: On GLP-1 at home - resume at d/c as per PCP (12) Diabetes: Status: Chronic Assessment and plan: On metformin - on hold for 48 hours PCOT glucose AC and HS with SS! coverage AC (13) Discharge planning issues: Status: Acute Assessment and plan: Anticipated discharge to home tomorrow with no new services if he remains hemodynamically stable d/c on DOAC Discussed with Dr Syde Subjective Subjective Patient reports: no new complaints, tolerating liquids well, tolerating a regular diet, shortness of breath (with activity) and afebrile Interval history since last seen: Pulse increased to the 130s with ambulation needing to stop due to shortness of breath. Exam Narrative Exam Narrative: Elderly male appearing older than stated age disheveled head is atraumatic eyes nonicteric noninjected oral mucosas dry, morbidly obese respirations even and unlabored breath sounds clear exam in the bases cardiovascular regular rate and rhythm abdomen obese soft nontender extremities equally Objective Last Vital Signs Temp 36.3 C L 07/08/25 11:43 Pulse 115 H 07/08/25 11:43 Resp 18 07/08/25 11:43 BP 123/79 07/08/25 11:43 Pulse Ox 98 07/08/25 11:43 Laboratory Results - last 24 hr 07/07/25 07/07/25 07/07/25 13:04 14:04 15:25 WBC RBC Hgb Hct MCV MCH MCHC RDW Plt Count MPV Immature Gran % Neutrophils % Lymphocytes % Monocytes % Eosinophils % Basophils % Nucleated RBC % Absolute Neutrophils Absolute Lymphocytes Absolute Monocytes Absolute Eosinophils Absolute Basophils D-Dimer 3990 H VBG pH VBG pCO2 VBG pO2 VBG HCO3 VBG Total CO2 VBG O2 Saturation VBG Base Excess VBG Lactate Sodium Potassium Chloride Carbon Dioxide Anion Gap BUN Creatinine Est GFR (CKD-EPI 2020) Glucose Calcium Troponin I < 3 Cancelled Urine Color Urine Clarity Urine pH Ur Specific [place] Urine Protein Urine Ketones Urine Blood Urine Nitrite Urine Bilirubin Urine Urobilinogen Ur Leukocyte Esterase Urine RBC Urine WBC Ur Epithelial Cells Urine Crystals Urine Bacteria Urine Casts Urine Mucus Ur Culture Indicated? Urine Glucose COVID-19 Source SARS-CoV-2 (PCR) Influenza Type A (PCR) Influenza Type B (PCR) RSV (PCR) 07/07/25 07/07/25 07/08/25 18:20 23:00 05:55 WBC 13.30 H RBC 4.32 L Hgb 9.8 L Hct 31.1 L MCV 72 L MCH 22.7 L MCHC 31.5 L RDW 17.6 H Plt Count 444 H MPV 8.9 Immature Gran % 0.6 Neutrophils % 68.3 Lymphocytes % 15.3 Monocytes % 9.1 Eosinophils % 5.9 Basophils % 0.8 Nucleated RBC % 0.0 Absolute Neutrophils 9.08 H Absolute Lymphocytes 2.03 Absolute Monocytes 1.21 H Absolute Eosinophils 0.78 H Absolute Basophils 0.11 D-Dimer VBG pH 7.39 VBG pCO2 43 VBG pO2 23 VBG HCO3 26 VBG Total CO2 25 VBG O2 Saturation 32 VBG Base Excess 1 VBG Lactate 1.4 Sodium 136 Potassium 3.9 Chloride 101 Carbon Dioxide 25.4 Anion Gap 9.6 BUN 16 Creatinine 0.93 Est GFR (CKD-EPI 2020) 81.62 Glucose 92 Calcium 8.9 Troponin I Urine Color Yellow Urine Clarity Clear Urine pH 6.0 Ur Specific [place] 1.010 Urine Protein 30 H Urine Ketones Negative Urine Blood Negative Urine Nitrite Negative Urine Bilirubin Negative Urine Urobilinogen 0.2 Ur Leukocyte Esterase Negative Urine RBC 0-2 Urine WBC Negative Ur Epithelial Cells Negative Urine Crystals Negative Urine Bacteria Rare Urine Casts 0-2 Hyaline Urine Mucus Trace Ur Culture Indicated? No Urine Glucose Negative COVID-19 Source Nasopharynx SARS-CoV-2 (PCR) Negative Influenza Type A (PCR) Negative Influenza Type B (PCR) Negative RSV (PCR) Negative Time Spent with Patient Time Spent with Patient: >50 minutes Time was spent: preparing to see the patient(eg.review tests), obtaining and/or reviewing separately otained hiistory, ordering medications,tests, procedures, indepentently interpreting results and counseling the patient
[2025-07-08 15:24] VITALS: BP 119/79; PULSE 98; RESP 18; TEMP 36.6; O2SAT 97
--- NOTE | 2025-07-08 16:14 | NUR.NOTE ---
Nursing Note: pt alert and oriented x 4 pt offered no complaints pt up to the BR pt needs to be encouraged to sit up in the chair pt able to ambulate on RA sats at rest mid 90's after ambulation with sl SOB on excertion sats remained in the mid 90's however HR 130 at rest 90-100 pts LT leg less painful and tender less swollen call cali at side safety maintained
[2025-07-08 19:13] VITALS: BP 131/52; PULSE 100; RESP 20; TEMP 37; O2SAT 96
[2025-07-08] MEDS: Atorvastatin 20 MG TAB PO (19:25)
[2025-07-08] MEDS: rOPINIRole 1 MG TAB PO (19:25)
[2025-07-08] MEDS: Diclofenac 1% Gel 100 GM TUBE TP (19:27)
[2025-07-08] MEDS: Triamcinolone 0.1% CR 15 GM TUBE TP (19:27)
[2025-07-08 22:59] VITALS: BP 131/71; PULSE 94; RESP 18; TEMP 37; O2SAT 93
[2025-07-08] MEDS: Acetaminophen 325 MG TAB 650 MG PO (23:35)
[2025-07-09 01:59] VITALS: BP 124/62; PULSE 88; RESP 18; TEMP 36.6; O2SAT 95
[2025-07-09] MEDS: Levothyroxine 100 MCG TAB PO (06:01)
[2025-07-09 06:34] VITALS: BP 129/75; PULSE 88; RESP 20; TEMP 36.4; O2SAT 99
[2025-07-09] MEDS: Cetirizine 10 MG TAB PO (09:06)
[2025-07-09] MEDS: Aspirin E.C. 81 MG TABEC PO (09:06)
[2025-07-09] MEDS: risperiDONE 0.25 MG TAB PO (09:07)
[2025-07-09] MEDS: Apixaban 5 MG TAB 10 MG PO (09:07)
[2025-07-09] MEDS: Sertraline 25 MG TAB PO (09:07)
[2025-07-09] MEDS: traZODone 50 MG TAB 25 MG PO (09:07)
[2025-07-09] MEDS: Naltrexone 50 MG TAB 25 MG PO (09:07)
[2025-07-09] MEDS: Omeprazole 20 MG CAPCR PO (09:07)
[2025-07-09] MEDS: Normal Saline Flush 10 ML SYR IVP (09:09)
--- NOTE | 2025-07-09 10:27 | W.NUTRFU ---
Date of service: 07/09/25 Time of Service: 10:27 Nutrition Note NOTE: received consult request for patient re: diabetes ed/mgt. Pt admitted for pulm embolism, leukocytosis, DVT, edema, MILAGROS and has a history of prediabetes. A1C history is 6.0 or lower - has been in prediabetes range, but not diabetic of 6.5% or higher. Besides a fingerstick of 137 late evening of 07/07, his glucose has been wnl. Pt does not take diabetes meds at home, does not check glucose or follow any special diet currently. He does report wt loss of about 5 pounds in less than a week's time, however reports being on glp-1 and this could be part of the reason. Usually eats 2 big meals at home per day and does his own meal prep and shopping. Denies chewing or swallowing concerns. nutrition dx: obesity related to excessive kcals AEB current BMI of >45 Pt would benefit from weight reduction to help with diabetes prevention. Given my card if he becomes interested in outpatient nutrition counseling. anticipate discharge today - will remain available for nutrition counseling in outpatient setting. Time Spent in Nutritional Counseling and Treatment: 10 min
--- NOTE | 2025-07-09 10:30 | DI.US_ITS ---
Exam(s) US EXTREMITY VENOUS BI EXAM: US EXTREMITY VENOUS BI CLINICAL HISTORY: DVT. TECHNIQUE: Bilateral lower extremity venous ultrasound performed using grayscale, color-flow, and spectral Doppler analysis. COMPARISON: No exams were available for comparison FINDINGS: The right common femoral, femoral and popliteal veins demonstrate normal compressibility, augmentation, and color Doppler. The posterior tibial and peroneal veins are patent. The saphenofemoral junction is unremarkable. There is no evidence of a Villegas's cyst. The soft tissues are unremarkable. The left common femoral vein demonstrate normal compressibility, augmentation, and color Doppler. There is occlusive noncompressible thrombus seen in the distal femoral vein, popliteal vein and posterior tibialis vein. It measures approximately 32 cm in length. The saphenofemoral junction is unremarkable. There is no evidence of a Villegas's cyst. The soft tissues are unremarkable. IMPRESSION: 1. No evidence of a right lower extremity DVT. 2. There is a left lower extremity DVT involving the distal left femoral vein, popliteal vein and posterior tibialis vein. DATA REPOSITORY:
--- NOTE | 2025-07-09 10:46 | W.PM.PROGNOT ---
Assessment and Plan Assessment and plan (1) Pulmonary embolism: Status: Acute Assessment and plan: no oxygen requirements continue Eliquis 10 mg oral twice daily for 14 doses then 5 mg orally twice daily, duration per PCP Prescription sent to pharmacy -care management notified No evidence of heart strain on CT but will obtain echocardiogram if available on Wednesday Bilateral lower extremity ultrasounds pending for Wednesday (2) Leukocytosis: Status: Acute Assessment and plan: no source of infection identified resolving, likely stress response (3) DVT (deep venous thrombosis): Status: Acute Assessment and plan: fully anticoagulated on apixaban US venous bilateral lower extremities pending for Wednesday (4) Edema of left lower extremity: Status: Acute Assessment and plan: As above (5) MILAGROS (acute kidney injury): Status: Resolved Assessment and plan: normalized after IV hydration (6) Hypothyroidism: Status: Chronic Assessment and plan: Continue home medicine regimen (7) Depression: Status: Chronic Assessment and plan: Continue home medicine regimen (8) Hyperlipidemia: Status: Acute Assessment and plan: Continue home medicine regimen (9) Hypertension: Status: Chronic Assessment and plan: resume diuresis and ACEI's continue routine monitoring and adjust as needed. (10) Insomnia: Status: Acute Assessment and plan: Continue home medicine regimen Consider melatonin at HS (11) Obesity: Status: Chronic Assessment and plan: On GLP-1 at home - resume at d/c as per PCP (12) Diabetes: Status: Chronic Assessment and plan: On metformin - on hold for 48 hours PCOT glucose AC and HS with SS! coverage AC (13) Discharge planning issues: Status: Acute Assessment and plan: Anticipated discharge to home tomorrow with no new services if he remains hemodynamically stable d/c on DOAC Discussed with Dr Syed Objective Last Vital Signs Temp 36.4 C L 07/09/25 06:34 Pulse 88 07/09/25 06:34 Resp 20 07/09/25 06:34 BP 129/75 07/09/25 06:34 Pulse Ox 99 07/09/25 06:34
[2025-07-09 11:52] VITALS: BP 154/78; PULSE 90; RESP 18; TEMP 36; O2SAT 98
--- NOTE | 2025-07-09 12:11 | PDOC.CMDIS ---
Date of service: 07/09/25 Time of Service: 12:11 LACE Index Scoring Tool Questions: Length of Stay (in days): 2 Was the patient admitted via the E.D.?: Yes Comorbidities: Diabetes w/o Complication E.D. Visits: 1 Answers: Total Score: 7 Risk of Readmission: Low Risk Care Management Discharge Plan Reason for Hospitalization: PE, DVT, MILAGROS Discharge Plan: Milind will be discharged home with no new services indicated. It is recommended he follow up with his community providers and discharge plan of care. He will transport home via private vehicle. Milind will be discharged with new Eliquis with $0 co-pay which is scheduled for delivery to his home, today. Patient/Family Education Needs: Review of discharge instruction, activity, limitations, and plan of care. Discuss ask me three. SDOH Health Related Social Needs: Health related social needs risk of homeless
--- NOTE | 2025-07-09 13:46 | W.PM.DS.N ---
Date of service: 07/09/25 Time of Service: 13:47 DS: Diagnosis Discharge Diagnosis (1) Pulmonary embolism: Status: Acute (2) Leukocytosis: Status: Acute (3) DVT (deep venous thrombosis): Status: Acute (4) Edema of left lower extremity: Status: Acute (5) MILAGROS (acute kidney injury): Status: Resolved (6) Hypothyroidism: Status: Chronic (7) Depression: Status: Chronic (8) Hyperlipidemia: Status: Acute (9) Hypertension: Status: Chronic (10) Insomnia: Status: Acute (11) Obesity: Status: Chronic (12) Diabetes: Status: Chronic (13) Discharge planning issues: Status: Acute Discharge Plan Disposition Patient Disposition: Home Condition: Improving Discharge Details Reason For Visit: PE, DVT, MILAGROS Admit Date/Time: 07/07/25 17:10 Admit Provider: Robby Syed Attending Provider: Robby Syed Primary Care Provider: Alysia Castro [facility] Hospital Course: Milind Fowler is a 64 yo male patient with a PMHx of calcified cerebral meningioma, hypertension, hyperlipidemia, diabetes, GERD who presented to the [facility] 07/07/25 for dyspena on exertion and left leg pain and swelling, with tachycardia, and tachypnea w/o hypoxemia. Work-up in the ED was positive for small RLL pulmonary emboli, with most likely reactive leukocytosis and MILAGROS stage I. The patient was admitted to the medical surgical floor by the hospitalist service for further evaluation and management. Eliquis was initiated in the emergency room and continued. US LEs showed LLE DVT. Echocardiogram completed and report is pending, LVEF around 59%, no apparent wall motion abnormality preliminary seen. The patient clinically improved and is hemodynamically stable, independently ambulatory in room and will be discharged home today with a follow-up with his PCP within 7 days of discharge. Discussed with Dr. Syed Recommendations for Follow Up Recommended tests to be ordered by follow up provider: F/u on echocardiogram report for cardiology referral if needed, Metformin dosing adjustment, Iron studies Home Meds and New Rx's Prescriptions: New Eliquis 5 mg tablet 5 mg PO BID Qty: 72 0RF Rx Instructions: 10 mg orally BID X 14 doses total - then after initiate 5 mg PO BID for at least 3 months- refills asper PCP ferrous sulfate 325 mg (65 mg iron) tablet 325 mg PO .q 48h Qty: 30 0RF Continued triamcinolone acetonide 0.1 % cream 1 applic topical BID Qty: 80 1RF trazodone 50 mg tablet 25 mg PO DAILY Qty: 14 2RF cetirizine 10 mg tablet 10 mg PO DAILY Qty: 90 3RF semaglutide (weight loss) 1.7 mg/0.75 mL pen injector 1.7 mg subcut QWEEK Qty: 3 0RF diclofenac sodium [Voltaren Arthritis Pain] 1 % gel 2 g topical BID atorvastatin 20 mg tablet 20 mg PO QHS Qty: 90 3RF ropinirole 1 mg tablet 1 mg PO QHS Qty: 90 3RF Rx Instructions: administer 1-3 hours before bedtime spironolactone 25 mg tablet See Rx Instructions .ROUTE .COMPLEX Qty: 90 3RF Dose Instruction: TAKE ONE TABLET BY MOUTH EVERY DAY Rx Instructions: TAKE ONE TABLET BY MOUTH EVERY DAY naltrexone 50 mg tablet See Rx Instructions .ROUTE .COMPLEX Qty: 90 1RF Dose Instruction: TAKE ONE-HALF TABLET BY MOUTH TWICE A DAY Rx Instructions: TAKE ONE-HALF TABLET BY MOUTH TWICE A DAY lisinopril 10 mg tablet See Rx Instructions .ROUTE .COMPLEX Qty: 90 3RF Dose Instruction: TAKE ONE TABLET BY MOUTH EVERY DAY Rx Instructions: TAKE ONE TABLET BY MOUTH EVERY DAY sertraline 25 mg tablet See Rx Instructions .ROUTE .COMPLEX Qty: 90 0RF Dose Instruction: TAKE ONE TABLET BY MOUTH EVERY DAY Rx Instructions: TAKE ONE TABLET BY MOUTH EVERY DAY risperidone 0.25 mg tablet See Rx Instructions .ROUTE .COMPLEX Qty: 90 3RF Dose Instruction: TAKE ONE TABLET BY MOUTH EVERY DAY Rx Instructions: TAKE ONE TABLET BY MOUTH EVERY DAY levothyroxine 100 mcg tablet See Rx Instructions .ROUTE .COMPLEX Qty: 90 3RF Dose Instruction: TAKE ONE TABLET BY MOUTH EVERY DAY Rx Instructions: TAKE ONE TABLET BY MOUTH EVERY DAY furosemide 20 mg tablet See Rx Instructions .ROUTE .COMPLEX Qty: 90 3RF Dose Instruction: TAKE ONE TABLET BY MOUTH EVERY DAY Rx Instructions: TAKE ONE TABLET BY MOUTH EVERY DAY cyclobenzaprine 10 mg tablet See Rx Instructions .ROUTE .COMPLEX Qty: 60 2RF Dose Instruction: TAKE ONE TABLET BY MOUTH THREE TIMES A DAY NEEDED FOR MUSCLE SPASMS Rx Instructions: TAKE ONE TABLET BY MOUTH THREE TIMES A DAY NEEDED FOR MUSCLE SPASMS lorazepam 0.5 mg tablet 0.5 mg PO ONCE PRN (Reason: anxiety/claustrophobia) Qty: 2 0RF Rx Instructions: Take one tablet 30min prior to MRI. Ok to take second at time of MRI if still anxious. Do not drive after taking. bupropion HCl 150 mg tablet sustained-release 12 hr See Rx Instructions .ROUTE .COMPLEX Qty: 270 3RF Dose Instruction: TAKE TWO TABLETS BY MOUTH EVERY MORNING AND ONE TABLET IN THE EVENING Rx Instructions: TAKE TWO TABLETS BY MOUTH EVERY MORNING AND ONE TABLET IN THE EVENING omeprazole 20 mg capsule,delayed release(DR/EC) See Rx Instructions .ROUTE .COMPLEX Qty: 90 3RF Dose Instruction: TAKE ONE CAPSULE BY MOUTH EVERY MORNING Rx Instructions: TAKE ONE CAPSULE BY MOUTH EVERY MORNING lidocaine [Lidoderm] 5 % adhesive patch,medicated 1 patch topical DAILY PRNQty: 15 0RF Rx Instructions: leave on most painful area for up to 12 hrs aspirin 81 mg tablet,delayed release (DR/EC) 81 mg PO DAILY Rx Instructions: TAKE ONE TABLET BY MOUTH EVERY DAY Changed metformin 500 mg tablet extended release 24 hr 500 mg PO DAILY Qty: 180 3RF Discharge Instructions Stand Alone Forms: Portal Information, Nursing Discharge Form Referrals: Alysia Castro APRN [Primary Care Provider, Family Practice] Referral Note: Follow-up within 7 days of discharge Activity:: Activity as Tolerated Equipment/Supplies:: No Equipment Needed Diet:: heart healthy diabetic Discharge Orders Discharge Orders: Discharge Order (Routine); Ordered 07/09/25 Ordered By: Amber Esparza DS: Summary Time Spent with Patient providing and/or coordinating discharge services: Greater than 30 minutes Status at Discharge Functional status at discharge: independent ambulation Overall status at discharge: patient is progressing back to baseline Mental Status: mental status grossly normal Speech and Movement: speech and movement normal Mood: congruent mood Affect: normal affect Quality:SDOH Health Related Social Needs: Health related social needs risk of homeless Exam Narrative Exam Narrative: Alert and oriented x4 no acute distress , non-icteric sclera, no JVD, no acute focal neurological deficit, unlabored breathing clear lungs, S1-S2, no murmur, abdomen is obese , non-distended soft nontender, no CVA tenderness, decreased swelling to LLE no erythema Psych Mental Status: mental status grossly normal Speech and Movement: speech and movement normal Mood: congruent mood Affect: normal affect DS: Data Vitals/I&O Vitals and I&O: Vital Signs Temperature 36.0 C L 07/09/25 11:52 Temperature Source Temporal Artery Scan 07/09/25 11:52 Pulse 90 07/09/25 11:52 Pulse Rhythm Regular 07/07/25 18:09 Pulse 106 H 07/07/25 16:50 Respiratory Rate 18 07/09/25 11:52 Respiratory Effort Non-Labored 07/07/25 18:09 Respiratory Depth Normal 07/07/25 18:09 Respiratory Pattern Normal 07/07/25 18:09 Blood Pressure 154/78 H 07/09/25 11:52 Blood Pressure Mean 103 07/09/25 11:52 Blood Pressure Position Sitting 07/07/25 12:17 Pulse Oximetry 98 07/09/25 11:52 Oxygen Delivery Method Room Air 07/09/25 11:52 Oxygen Flow Rate 0 07/09/25 11:52 Pain Level 0 07/09/25 09:16 Intake & Output 07/08/25 07/09/25 07/09/25 23:59 11:59 23:59 Intake Total 1232 / 2712 480 / 480 Balance 1232 / 2712 480 / 480 Weight 144.6 kg Intake: IV 1009 Oral 222 / 702 480 / 480 Other: Urine Color Yellow Urine Appearance Clear Urine Odor Normal Comment per pt stated he went an hour ago Data Completed and Pending Pending Labs at Discharge: 07/07/25 07/07/25 07/07/25 13:04 14:04 15:25 WBC 17.72 H RBC 4.89 Hgb 10.8 L Hct 35.1 L MCV 72 L MCH 22.1 L MCHC 30.8 L RDW 17.5 H Plt Count 515 H MPV 8.6 Immature Gran % 0.8 Neutrophils % 78.0 Lymphocytes % 9.7 Monocytes % 8.7 Eosinophils % 2.3 Basophils % 0.5 Nucleated RBC % 0.0 Absolute Neutrophils 13.82 H Absolute Lymphocytes 1.72 Absolute Monocytes 1.54 H Absolute Eosinophils 0.41 Absolute Basophils 0.09 RBC Morphology See Below Microcytosis 2+ PT 10.8 INR 1.1 APTT 26.3 D-Dimer 3990 H VBG pH VBG pCO2 VBG pO2 VBG HCO3 VBG Total CO2 VBG O2 Saturation VBG Base Excess VBG Lactate Sodium 132 L Potassium 4.3 Chloride 98 Carbon Dioxide 25.0 Anion Gap 9.3 BUN 15 Creatinine 1.22 H Est GFR (CKD-EPI 2020) 59.67 Glucose 141 H Calcium 9.2 Total Bilirubin 0.50 AST 12 ALT 14 Alkaline Phosphatase 109 Troponin I 4 < 3 Cancelled NT-Pro-B Natriuret Pep 110 Total Protein 7.8 Albumin 4.2 TSH 1.72 Urine Color Urine Clarity Urine pH Ur Specific [place] Urine Protein Urine Ketones Urine Blood Urine Nitrite Urine Bilirubin Urine Urobilinogen Ur Leukocyte Esterase Urine RBC Urine WBC Ur Epithelial Cells Urine Crystals Urine Bacteria Urine Casts Urine Mucus Ur Culture Indicated? Urine Glucose COVID-19 Source SARS-CoV-2 (PCR) Influenza Type A (PCR) Influenza Type B (PCR) RSV (PCR) 07/07/25 07/07/25 07/08/25 18:20 23:00 05:55 WBC 13.30 H RBC 4.32 L Hgb 9.8 L Hct 31.1 L MCV 72 L MCH 22.7 L MCHC 31.5 L RDW 17.6 H Plt Count 444 H MPV 8.9 Immature Gran % 0.6 Neutrophils % 68.3 Lymphocytes % 15.3 Monocytes % 9.1 Eosinophils % 5.9 Basophils % 0.8 Nucleated RBC % 0.0 Absolute Neutrophils 9.08 H Absolute Lymphocytes 2.03 Absolute Monocytes 1.21 H Absolute Eosinophils 0.78 H Absolute Basophils 0.11 RBC Morphology Microcytosis PT INR APTT D-Dimer VBG pH 7.39 VBG pCO2 43 VBG pO2 23 VBG HCO3 26 VBG Total CO2 25 VBG O2 Saturation 32 VBG Base Excess 1 VBG Lactate 1.4 Sodium 136 Potassium 3.9 Chloride 101 Carbon Dioxide 25.4 Anion Gap 9.6 BUN 16 Creatinine 0.93 Est GFR (CKD-EPI 2020) 81.62 Glucose 92 Calcium 8.9 Total Bilirubin AST ALT Alkaline Phosphatase Troponin I NT-Pro-B Natriuret Pep Total Protein Albumin TSH Urine Color Yellow Urine Clarity Clear Urine pH 6.0 Ur Specific [place] 1.010 Urine Protein 30 H Urine Ketones Negative Urine Blood Negative Urine Nitrite Negative Urine Bilirubin Negative Urine Urobilinogen 0.2 Ur Leukocyte Esterase Negative Urine RBC 0-2 Urine WBC Negative Ur Epithelial Cells Negative Urine Crystals Negative Urine Bacteria Rare Urine Casts 0-2 Hyaline Urine Mucus Trace Ur Culture Indicated? No Urine Glucose Negative COVID-19 Source Nasopharynx SARS-CoV-2 (PCR) Negative Influenza Type A (PCR) Negative Influenza Type B (PCR) Negative RSV (PCR) Negative PFSH All Active Problems (Updated 07/08/25 @ 14:06 by Janey Maher NP) Leukocytosis (Acute) Discharge planning issues (Acute) Diabetes (Chronic) DVT (deep venous thrombosis) (Acute) Edema of left lower extremity (Acute) Pulmonary embolism (Acute) Hypothyroidism (Chronic) Depression (Chronic) Balance disorder (Acute) BPPV (benign paroxysmal positional vertigo) (Acute) Calcified cerebral meningioma (Acute ~10/2024) Vertigo (Acute) Peripheral vascular disease, unspecified (Chronic) Eczema (Acute) Prediabetes (Acute 01/2019) Hyperlipidemia (Acute) Aortic regurgitation (Acute) Left ventricular hypertrophy (Acute) Fatty infiltration of liver (Acute) Cholelithiasis (Acute) Anterior epistaxis (Acute) Primary osteoarthritis of right knee (Acute) Injected: 06/26/2019 Primary osteoarthritis of left knee (Acute) Injected: 06/26/2019 Hypertension (Chronic) Insomnia (Acute) Obesity (Chronic) Tear of medial meniscus of left knee (Acute 09/26/19) Status post knee arthroscopy -partial medial meniscectomy and plica excision Medical History (Updated 07/08/25 @ 14:06 by Janey Maher, GISELLE) Infestation by bed bug Bedbug bite Follow-up exam Pneumonia History of prediabetes Wound of left lower extremity COVID-19 Screening for colorectal cancer Syncope Superficial thrombosis of leg (04/05/20) Anxiety GERD (gastroesophageal reflux disease) Restless leg syndrome Sleep apnea does not use device Surgical History Hx of oral surgery Pt states gum surgery Hx of shoulder surgery L Shoulder History of arthroscopy of right knee Dr. Woodall Colonoscopy - MAC (03/13/16) Social History Smoking/Tobacco Use Status: Former Tobacco Use Quit Date: 08/16/82 Smoking risk assessment performed?: Yes Alcohol Intake: former Drug use: Never Substance use type: does not use Adopted: Yes Caregiver/Support person: Yes Foster care: Yes Housing: apartment Number of Children: 3 number of grandchildren: 8 Communication Needs: None Education Level: high school Do you need help understanding health information?: Never current occupation: unemployed Pets and animals: Yes Pets and animals: dog(s) Sexually active: No Do you think of yourself as: straight/heterosexual Current gender identity: male What is your relationship status?: How often do you talk on the phone with friends or family?: three or more times per week How often do you get together with friends or relatives?: twice per week Do you belong to any clubs or organized social groups?: no Panel score (0-1 are the most socially isolated patients): 1 What type of physical activity do you participate in: walking Duration: 15-30 minutes/day Frequency: daily Seatbelt use: never Helmet use: No Drive intox or ride w/intox refuse driver: No Working smoke detector in home: Yes Carbon monox detector in home: Yes Do you feel safe at home: Yes Do you feel safe in your relationship?: Yes Victim of physical abuse: No Victim of emotional abuse: No Additional Social history: lives alone Time Spent with Patient Time Spent with Patient: >85 minutes Time was spent: preparing to see the patient(eg.review tests), obtaining and/or reviewing separately otained hiistory, ordering medications,tests, procedures, referring, communicating with other health care program director, indepentently interpreting results, counseling the patient, care coordination and other
== END 2025-07-09 14:41 | disposition home or self-care (01) ==
LOC: ER 17:32 → MS 18:02
PROVIDERS: Admitting Provider Family Medicine; Emergency Provider Nurse Practitioner Family; PCP Nurse Practitioner Family; Responsible Provider Nurse Practitioner Acute Care; Visit Provider Family Medicine
DX: I26.99 Other pulmonary embolism without acute cor pulmonale (principal); A41.9 Sepsis, unspecified organism; N17.9 Acute kidney failure, unspecified; Z68.43 Body mass index [BMI] 50.0-59.9, adult; E66.813 Obesity, class 3; I82.412 Acute embolism and thrombosis of left femoral vein; I82.432 Acute embolism and thrombosis of left popliteal vein; I82.442 Acute embolism and thrombosis of left tibial vein; E11.9 Type 2 diabetes mellitus without complications; Z59.811 Housing instability, housed, with risk of homelessness; R60.0 Localized edema; E78.5 Hyperlipidemia, unspecified; F32.A Depression, unspecified; I10 Essential (primary) hypertension; G47.00 Insomnia, unspecified; D72.829 Elevated white blood cell count, unspecified; D64.9 Anemia, unspecified; I73.9 Peripheral vascular disease, unspecified; I35.1 Nonrheumatic aortic (valve) insufficiency; Z79.4 Long term (current) use of insulin; Z79.85 Long-term (current) use of injectable non-insulin antidiabetic drugs
CPT/HCPCS: 00123; 36415; 71275; 80048; 80053; 82805; 87637; 93005; 96360; 96361; 99285; 81003; 81015; 83605; 83880; 84443; 84484; 85025; 85379; 85610; 85730; 93010; 93306; 93970; 99223; 99233; 99239; G0378; J1815; J2270; J3490

== ENCOUNTER 2025-07-24 11:59 | Outpatient (CLI) | payer MEDICARE, SELFPAY ==
[2025-07-24 12:32] LABS: HCT 34.0 % (40.0-50.0); HGB 10.3 g/dL (13.5-17.5); MCH 22.2 pg (27.0-33.0); MCHC 30.3 % (32.0-36.0); MPV 8.6 fL (8.0-11.0); Platelet Count 533 10^3/uL (130-400); RBC 4.65 10^6/uL (4.36-5.78); RDW 18.3 % (11.8-14.1); RDW-SD 47.7 fL; WBC 9.58 10^3/uL (4.4-10.8)
[2025-07-24 12:40] LABS: MCV 73 fL (80-95)
[2025-07-24 12:51] LABS: Creatine Kinase 57 U/L (46-171)
[2025-07-24 14:40] LABS: Hemoglobin A1C 5.8 % (<5.7)
[2025-07-24 15:24] LABS: ALT 16 U/L (10-49); AST 16 U/L (<34); Albumin 4.0 g/dL (3.2-5.0); Alkaline Phosphatase 109 U/L (46-116); Anion Gap 6.8 mmol/L (3-11); BUN 11 mg/dL (9-23); Bilirubin, Total 0.3 mg/dL (0.2-1.2); CO2 27.2 mmol/L (20.0-31.0); Calcium 9.4 mg/dL (8.3-10.6); Chloride 103 mmol/L (98-107); Cholesterol 149 mg/dL (<200); Glucose 97 mg/dL (74-106); HDL Cholesterol 50 mg/dL (>40); Potassium 4.5 mmol/L (3.5-5.1); Sodium 137 mmol/L (136-145); Total Protein 7.2 g/dL (5.7-8.2)
[2025-07-24 16:17] LABS: Lab Add On Test DONE
== END 2025-07-24 12:00 | disposition home or self-care (01) ==
LOC: LBO 11:59
PROVIDERS: PCP Nurse Practitioner Family; Visit Provider Nurse Practitioner Family
DX: E78.5 Hyperlipidemia, unspecified (principal); R06.00 Dyspnea, unspecified; R60.0 Localized edema; I51.7 Cardiomegaly; I35.1 Nonrheumatic aortic (valve) insufficiency; I73.9 Peripheral vascular disease, unspecified; R73.03 Prediabetes; I26.99 Other pulmonary embolism without acute cor pulmonale; R79.89 Other specified abnormal findings of blood chemistry
CPT/HCPCS: 36415; 80053; 80061; 82550; 85027; 83036; 83880